=== PATIENT | female | born 1940 | race Caucasian/White ===

== ENCOUNTER 2016-10-28 00:46 | Emergency (ER) ==
[2016-10-28 01:02] VITALS: BP 165/82; TEMP 98.3; BMI 42.5
[2016-10-28] MEDS ORDERED: MORPHINE 2 MG/ML SYRINGE IVP STA (01:27)
[2016-10-28] MEDS ORDERED: SODIUM CHLORIDE 1,000 ML IV STA ×2 (01:27)
[2016-10-28] MEDS ORDERED: PHENERGAN 25 MG/ML VIAL 25 MG in SODIUM CHLORIDE 50 ML IV STA (01:27)
[2016-10-28] MEDS ORDERED: PHENERGAN 25 MG/ML VIAL ONE (01:30)
[2016-10-28 02:08] LABS: BASOPHILS # (AUTO) 0.1 K/uL (0-0.2); BASOPHILS % (AUTO) 0.3 % (0.0-3.0); EOSINOPHILS # (AUTO) 0.2 K/ul (0.0-0.7); EOSINOPHILS % (AUTO) 0.5 % (0.0-7.0); IMMATURE GRANULOCYTE % (AUTO) 0.6 % (0.0-5.0); LYMPHOCYTES # (AUTO) 0.6 K/uL (0.60-3.4); LYMPHOCYTES % (AUTO) 1.9 (10.0-50.0); MEAN CORPUSCULAR HEMOGLOBIN 27.9 pg (27.0-31.0); MEAN CORPUSCULAR HGB CONC 31.3 (31.8-35.4); MEAN CORPUSCULAR VOLUME 89.4 fl (81.0-99.0); MONOCYTES # (AUTO) 1.8 K/uL (0.4-2.0); MONOCYTES % (AUTO) 5.9 (0-10); NEUTROPHILS # (AUTO) 27.4 K/ul (2.0-6.9); NEUTROPHILS % (AUTO) 90.8; PLATELET COUNT 446 10^3/uL (140-440); RED BLOOD COUNT 3.58 10^6/ul (4.20-5.40); WHITE BLOOD COUNT 30.13 K/ul (4.6-10.2)
[2016-10-28 02:08] LABS: FLU INTERNAL QC INTERNAL QC VALID; RAPID FLU A NEGATIVE (NEGATIVE); RAPID FLU B NEGATIVE (NEGATIVE)
[2016-10-28 02:18] LABS: ABG BASE EXCESS 5 (-2.0-2.0); ABG HCO3 29 (22.0-26.0); ABG PCO2 39.4 mmHg (35-45); ABG PH 7.475 (7.35-7.45); ABG TCO2 30 (22.0-28.0)
[2016-10-28 02:27] LABS: ALBUMIN 3.6 g/dL (3.4-5.0); ALBUMIN/GLOBULIN RATIO 0.92; ANION GAP 16.7; BILIRUBIN,TOTAL 0.27 mg/dL (0.00-1.20); BUN/CREATININE RATIO 22.09; CALCIUM 9.6 mg/dL (8.2-10.2); CREATININE 0.86 mg/dL (0.60-1.30); POTASSIUM 3.7 mmol/L (3.5-5.10); TOTAL PROTEIN 7.5 g/dL (5.8-8.1)
[2016-10-28 02:45] LABS: TROPONIN I 0.011 ng/ml (0.0000-0.4000)
[2016-10-28 02:47] LABS: ERYTHROCYTE SEDIMENTATION RATE 48 mm/hr (0-20); ESR INTERNAL QC INTERNAL QC VALID
--- NOTE | 2016-10-28 03:42 | CT ---
EXAM: CT scan abdomen pelvis without contrast HISTORY: Nausea vomiting diarrhea COMPARISON: CT scan abdomen pelvis 11/13/2014 FINDINGS: Contiguous axial images obtained from lung bases to the symphysis pubis without contrast utilizing 3-mm collimation. Sagittal and coronal reconstructions were imaged and reviewed.. The he art is enlarged with coronary artery calcification. There is no pericardial effusion. There is min imal bibasilar atelectasis. There are benign granulomatous changes within the liver. There has been a prior cholecystectomy. The pancreas spleen and adrenal glands have normal unenhanced CT appearan ce. The kidneys are morphologically normal.. Atherosclerotic changes are seen involving the aorta without aneurysm formation. There has been prior hysterectomy. There is no free fluid. There is a n ormal appendix.. There are prominent fluid-filled loops of small bowel throughout the abdomen and p roman most prominent within the left abdomen measuring upwards of 2.7 cm.. No discrete transition po int is identified although distal small bowel loops are of a smaller caliber Moderate degenerative changes noted throughout the lumbar spine. There is grade 1 spondylolisthesis of L4 upon L5 IMPRESSION: Status post cholecystectomy and hysterectomy. ASVD without aneurysm. Prominent fluid-filled loops of small bowel likely related to gastroenteritis.. Early small bowel o bstruction. Is thought less likely. Suggest follow-up comparative plain film exam if symptoms persi st
[2016-10-28 03:43] LABS: BILIRUBIN,URINE Negative (NEGATIVE); KETONES,URINE Negative (NEGATIVE); LEUKOCYTE ESTERASE ,URINE Trace (NEGATIVE); NITRITE,URINE Negative (NEGATIVE); PROTEIN,URINE Trace (NEGATIVE); URINE, BLOOD Trace-intact (NEGATIVE)
[2016-10-28 03:45] LABS: ADD URINE MICROSCOPIC YES
[2016-10-28 03:55] LABS: BACTERIA,URINE 1+ (NOT PRESENT)
--- NOTE | 2016-10-28 06:01 | ED.PDOC ---
[id number]: terrell got both vomiting and diarrhea... Time Seen by Physician: 00:50 Mode of Arrival: Walk-In Information Source: Patient, Family Exam Limitations: No limitations Primary Care Provider: KASSIE MYERS Nursing and Triage Documentation Reviewed and Agree: Yes GI Complaint Exam - Vomiting/Diarrhea Complaint/Exam Onset/Duration: several hours Symptoms Are: Still present Initial Severity: Mild Current Severity: Moderate Character of Vomiting: Reports: Non-bilious Character of Diarrhea: Reports: Watery Aggravating: Reports: None Alleviating: Reports: None Associated Signs and Symptoms: Reports: Abdominal pain, Cramping. Denies: Dizziness, Light-headedness, Melena, Hematemesis, Fever Recent Positive Test: No Use of Oral Contraceptives: No Use of Depoprovera: No Compliant With Contraceptive Use: No Non-GI Risk Factors: Reports: None Surgical Obstruction Risk Factors: Reports: Prior abdominal surgery Kussmaul Respirations Present: No Differential Diagnoses: Bowel Obstruction, Dehydration, PUD, Viral Gastroenteritis, Bacterial Gastroenteritis, UTI Review of Systems - Review Of Systems Constitutional: Reports: No symptoms Eyes: Reports: No symptoms Ears, Nose, Mouth, Throat: Reports: No symptoms Respiratory: Reports: No symptoms Cardiac: Reports: No symptoms GI: Reports: Abdominal pain, Diarrhea, Nausea, Vomiting : Reports: No symptoms Musculoskeletal: Reports: No symptoms Skin: Reports: No symptoms Neurological: Reports: No symptoms Endocrine: Reports: No symptoms Hematologic/Lymphatic: Reports: No symptoms All Other Systems: Reviewed and Negative Past Medical History - Past Medical History Endocrine: Reports: Hypothyroid, Dyslipidemia Cardiovascular: Reports: Hypertension Respiratory: Reports: None Hematological: Reports: Anemia Gastrointestinal: Reports: GERD, GI Bleed Genitourinary: Reports: None Neuro/Psych: Reports: None Musculoskeletal: Reports: None Cancer: Reports: None Last Menstrual Period: PT HAS HAD A HYSTERECTOMY Other Pertinent Past Medical History: his chronic leukocytosis --followed by dr smith--also chronic lymphedema - Surgical History General Surgical History: Reports: Hysterectomy, (x2), Cholecystectomy , Tonsillectomy, Orthopedic ( KNEE REPLACEMENT X2) - Family History Family History: Reports: Unknown - Social History Smoking Status: Never smoker Hx Substance Use: No Alcohol Screening: None Lives: With family - Immunizations Tetanus Shot up to Date: Yes Physical Exam - Physical Exam Appearance: Well-appearing, No pain distress, Well-nourished Pain Distress: Mild Eyes: CATIA, EOMI, Conjunctiva clear ENT: Ears normal, Nose normal, Oropharynx normal Neck: Supple Respiratory: Airway patent, Breath sounds clear, Breath sounds equal, Respirations nonlabored Cardiovascular: RRR, Pulses normal, No rub, No murmur GI/: Soft, Nontender, No masses, Bowel sounds normal, No Organomegaly Musculoskeletal: Normal strength, ROM intact, No edema, No calf tenderness Skin: Warm, Dry (noted erythema of the lower extrmities..pt and family says chronic) Neurological: Sensation intact, Motor intact, Reflexes intact, Cranial nerves intact, Alert, Oriented Psychiatric: Affect appropriate, Mood appropriate Interpretation - Radiology Interpretation Radiology Interpretation By: Radiologist Radiology Results: Negative Exam Interpreted: CT Scan - EKG Interpretation Time of EKG #1: 06:03 Rate: Normal Rhythm: Sinus Ectopy: None [place]: NL ST Segment: Normal Re-Evaluation - Re-Evaluation Time of Re-Evaluation: 06:03 Status: Improved Vital Signs Stable: Yes Pain Level: 0 Appearance: NAD Lungs: Clear Skin: Warm and Dry Neuro: Alert and Oriented X3 CV: RRR Physician Notification - Case Discussed Physician Notified: dr myers--notified of extremities and her leukocytosis--he confimed chronic Time of Notification: 06:04 Critical Care Note - Critical Care Note Total Time (mins): 0 Course - Course Hematology/Chemistry: 10/28/16 01:50 10/28/16 01:50 Orders, Labs, Meds: Lab Review 10/28/16 10/28/16 10/28/16 01:25 01:31 01:50 WBC 30.13 H RBC 3.58 L Hgb 10.0 L Hct 32.0 L MCV 89.4 MCH 27.9 MCHC 31.3 L RDW Coeff of Martha 16.6 H Plt Count 446 H Immature Gran % (Auto) 0.6 Neut % (Auto) 90.8 Lymph % (Auto) 1.9 L [place] % (Auto) 5.9 Eos % (Auto) 0.5 Baso % (Auto) 0.3 Immature Gran # (Auto) 0.2 Neut # 27.4 H Lymph # 0.6 [place] # 1.8 Eos # 0.2 Baso # 0.1 ESR 48 H D-Dimer 1.06 Puncture Site Lr O2 Saturation 96.0 ABG pH 7.475 H ABG pCO2 39.4 ABG pO2 78.0 L ABG HCO3 29 H ABG Total CO2 30 H ABG Base Excess 5 H Rigo Test + FiO2 % 21.0 Sodium 141 Potassium 3.7 Chloride 100 Carbon Dioxide 28 Anion Gap 16.7 BUN 19 H Creatinine 0.86 Estimated GFR (MDRD) 64.00 BUN/Creatinine Ratio 22.09 Glucose 132 H Calcium 9.6 Total Bilirubin 0.27 AST 17 ALT 14 Alkaline Phosphatase 72 Total Creatine Kinase 99 Troponin I 0.0110 Total Protein 7.5 Albumin 3.6 Globulin 3.9 Albumin/Globulin Ratio 0.92 Amylase 53 Lipase 30 Urine Color Urine Clarity Urine pH Ur Specific [place] Urine Protein Urine Glucose (UA) Urine Ketones Urine Blood Urine Nitrite Urine Bilirubin Urine Urobilinogen Ur Leukocyte Esterase Urine Microscopic RBC Urine Microscopic WBC Ur Squamous Epith Cells Urine Bacteria Influenza A (Rapid) Negative Influenza B (Rapid) Negative 10/28/16 03:40 WBC RBC Hgb Hct MCV MCH MCHC RDW Coeff of Martha Plt Count Immature Gran % (Auto) Neut % (Auto) Lymph % (Auto) [place] % (Auto) Eos % (Auto) Baso % (Auto) Immature Gran # (Auto) Neut # Lymph # [place] # Eos # Baso # ESR D-Dimer Puncture Site O2 Saturation ABG pH ABG pCO2 ABG pO2 ABG HCO3 ABG Total CO2 ABG Base Excess [place] Test FiO2 % Sodium Potassium Chloride Carbon Dioxide Anion Gap BUN Creatinine Estimated GFR (MDRD) BUN/Creatinine Ratio Glucose Calcium Total Bilirubin AST ALT Alkaline Phosphatase Total Creatine Kinase Troponin I Total Protein Albumin Globulin Albumin/Globulin Ratio Amylase Lipase Urine Color Yellow Urine Clarity Clear Urine pH 6.0 Ur Specific [place] 1.020 Urine Protein Trace Urine Glucose (UA) Negative Urine Ketones Negative Urine Blood Trace-intact Urine Nitrite Negative Urine Bilirubin Negative Urine Urobilinogen 0.2 Ur Leukocyte Esterase Trace Urine Microscopic RBC 2-5 Urine Microscopic WBC 2-5 Ur Squamous Epith Cells 5-10 Urine Bacteria 1+ Influenza A (Rapid) Influenza B (Rapid) Orders Category Date Time Status ABG DRAW REQUEST Stat CARDIO 10/28/16 01:26 Completed EKG-(ED ONLY) Stat CARDIO 10/28/16 01:26 Completed IV [ED IV/MEDIPORT/POWERPORT] .ONCE EMERGENCY 10/28/16 01:27 Active ABG Stat LAB 10/28/16 01:25 Completed AMYLASE Stat LAB 10/28/16 01:50 Completed CBC W/ AUTO DIFF Stat LAB 10/28/16 01:50 Completed COMPREHENSIVE METABOLIC PANEL Stat LAB 10/28/16 01:50 Completed CREATINE KINASE Stat LAB 10/28/16 01:50 Completed D-DIMER Stat LAB 10/28/16 01:50 Completed ESR Stat LAB 10/28/16 01:50 Completed LIPASE Stat LAB 10/28/16 01:50 Completed MOLECULAR GROUP A STREP Stat LAB 10/28/16 01:37 Results RAPID FLU A/B Stat LAB 10/28/16 01:31 Completed STREP SCREEN Stat LAB 10/28/16 01:37 Results TROPONIN I Stat LAB 10/28/16 01:50 Completed URINALYSIS C & S IF INDICATED Stat LAB 10/28/16 03:40 Completed URINE CULTURE Routine LAB 10/28/16 03:55 Received 0.9 % Sodium Chloride [Saline Flush] MEDS 10/28/16 01:27 Ordered 1 syr IVF PRN PRN Morphine Sulfate [Morphine 2 mg/ml Syringe] MEDS 10/28/16 01:27 Discontinued 2 mg IVP ONCE STA Promethazine HCl [Phenergan 25 mg/ml Vial] MEDS 10/28/16 01:30 Discontinued 25 mg .ROUTE .STK-MED ONE Promethazine HCl [Phenergan 25 mg/ml Vial] 25 mg MEDS 10/28/16 01:27 Discontinued 0.9 % Sodium Chloride [Sodium Chloride] 50 ml IV ONCE Sodium Chloride 0.9% [Sodium Chloride] 1,000 ml MEDS 10/28/16 01:27 Active IV 125 mls/hr Sodium Chloride 0.9% [Sodium Chloride] 1,000 ml MEDS 10/28/16 01:[address] ABDOMEN/PELVIS WO CONTRAST Stat RADS 10/28/16 01:28 Completed Medications Generic Name Dose Route Start Last Admin Trade Name Freq PRN Reason Stop Dose Admin Sodium Chloride 1,000 mls @ 125 mls/hr 10/28/16 01:27 10/28/16 01:59 Sodium Chloride IV 10/28/16 09:26 125 mls/hr .Q8H STA Administration Sodium Chloride 1 syr 10/28/16 01:27 Saline Flush IVF PRN PRN To flush IV Discontinued Medications Generic Name Dose Route Start Last Admin Trade Name Hoq PRN Reason Stop Dose Admin Promethazine HCl 25 mg/ Sodium 51 mls @ 75 mls/hr 10/28/16 01:27 10/28/16 01: 59 Chloride IV 10/28/16 02:07 75 mls/hr ONCE STA Administration Sodium Chloride 1,000 mls @ 1,000 mls/hr 10/28/16 01:27 Sodium Chloride IV 10/28/16 02:26 BOLUS STA Morphine Sulfate 2 mg 10/28/16 01:27 10/28/16 02:00 Morphine 2 Mg/Ml Syringe IVP 10/28/16 01:28 2 mg ONCE STA Administration Vital Signs: Temp Pulse Resp BP Pulse Ox 10/28/16 00:49 98.3 F 90 20 165/82 H 95 Departure - Departure Time of Disposition: 06:03 Disposition: HOME SELF-CARE Discharge Problem: Enteritis Instructions: Enteritis (ED) Condition: Good Pt referred to PMD for follow-up: Yes Additional Instructions: clear liquids--zofran 4mg q 4hrs prn nausea #4--f/u with dr myers this week-- cipro 250mg bid x 5 days while awaiting urine culture Allergies/Adverse Reactions: Allergies Sulfa (Sulfonamide Antibiotics) Adverse Reaction (Verified 10/28/16 01:02) Home Medications: Ambulatory Orders Diltiazem HCl [Diltiazem 24Hr Cd] 180 mg PO BEDTIME 03/27/13 Fexofenadine HCl [Rose] 180 mg PO BEDTIME PRN 03/27/13 Furosemide [Lasix Tab] 40 mg PO QDAC 03/27/13 Potassium Chloride [Klor-Con 10] 20 meq PO DAILY 03/27/13 Tramadol HCl [Ultram] 50 mg PO TID PRN 03/27/13 [place]-3 Fatty Acids/Fish Oil [[facility] Fish Oil 1,200 mg Softgel] 1 each PO DAILY Omeprazole [Prilosec] 40 mg PO QDAC 06/18/14 Sucralfate [Carafate] 1 gm PO BID 06/18/14 Valsartan [Diovan] 80 mg PO DAILY 06/18/14 Bisoprolol Fumarate [Zebeta] 5 mg PO BEDTIME 05/05/15 Hydrocodone Bit/Acetaminophen [Flora 5-325] 1 tab PO Q8HR PRN 05/05/15 Hydroxychloroquine Sulfate [Plaquenil] 200 mg PO BID 05/05/15 L.acidoph,Paracasei, B.lactis [Probiotic] 1 each PO DAILY 05/05/15 Methylcellulose [Fiber Therapy] 500 mg PO DAILY 05/05/15 Prednisone 5 mg PO DAILYWM 05/05/15 Pravastatin Sodium [Pravachol] 80 mg PO BEDTIME #30 tablet 05/06/15 Digoxin 250 mcg PO DAILY 07/11/15 Clotrimazole/Betamethasone Dip [Lotrisone Cream] 15 gm TP BID PRN 10/28/16 Disposition Discussed With: Patient, Family
== END 2016-10-28 06:25 | disposition home or self-care (01) ==
LOC: ED 00:46
DX: K52.9 Noninfective gastroenteritis and colitis, unspecified (principal); Z79.899 Other long term (current) drug therapy; E03.9 Hypothyroidism, unspecified; E78.5 Hyperlipidemia, unspecified; I10 Essential (primary) hypertension; D64.9 Anemia, unspecified; D72.829 Elevated white blood cell count, unspecified; I89.0 Lymphedema, not elsewhere classified; Z87.19 Personal history of other diseases of the digestive system
CPT/HCPCS: 36415; 80053; 81001; 82150; 82550; 82803; 83690; 84484; 85025; 85379; 85651; 87086; 87651; 87804; 87880; 93005; 93010; 96361; 96365; 96375; 99283

== ENCOUNTER 2016-12-18 15:25 | Outpatient (CLI) ==
[2016-12-18 15:46] LABS: BASOPHILS # (AUTO) 0.1 K/uL (0-0.2); BASOPHILS % (AUTO) 0.3 % (0.0-3.0); EOSINOPHILS # (AUTO) 0.1 K/ul (0.0-0.7); EOSINOPHILS % (AUTO) 0.4 % (0.0-7.0); HEMATOCRIT 28.9 % (37.0-47.0); HEMOGLOBIN 8.8 g/dl (12.0-16.0); IMMATURE GRANULOCYTE % (AUTO) 0.4 % (0.0-5.0); LYMPHOCYTES # (AUTO) 0.9 K/uL (0.60-3.4); LYMPHOCYTES % (AUTO) 4.7 (10.0-50.0); MEAN CORPUSCULAR HEMOGLOBIN 22.9 pg (27.0-31.0); MEAN CORPUSCULAR HGB CONC 30.4 (31.8-35.4); MEAN CORPUSCULAR VOLUME 75.1 fl (81.0-99.0); MONOCYTES # (AUTO) 1.1 K/uL (0.4-2.0); MONOCYTES % (AUTO) 6.2 (0-10); NEUTROPHILS # (AUTO) 15.8 K/ul (2.0-6.9); PLATELET COUNT 567 10^3/uL (140-440); RED BLOOD COUNT 3.85 10^6/ul (4.20-5.40); WHITE BLOOD COUNT 17.93 K/ul (4.6-10.2)
[2016-12-18 16:02] LABS: BILIRUBIN,URINE Negative (NEGATIVE); KETONES,URINE Trace (NEGATIVE); LEUKOCYTE ESTERASE ,URINE Negative (NEGATIVE); NITRITE,URINE Negative (NEGATIVE); PROTEIN,URINE Trace (NEGATIVE); URINE, BLOOD Trace-intact (NEGATIVE)
[2016-12-18 16:06] LABS: ALBUMIN 3.6 g/dL (3.4-5.0); ALBUMIN/GLOBULIN RATIO 0.84; ANION GAP 16.3; BILIRUBIN,TOTAL 0.29 mg/dL (0.00-1.20); BUN/CREATININE RATIO 21.7; CREATININE 1.29 mg/dL (0.60-1.30); POTASSIUM 3.3 mmol/L (3.5-5.10); TOTAL PROTEIN 7.9 g/dL (5.8-8.1)
[2016-12-18 16:13] LABS: ADD URINE MICROSCOPIC YES
[2016-12-18 16:15] LABS: BACTERIA,URINE 1+ (NOT PRESENT)
== END 2016-12-18 15:26 | disposition home or self-care (01) ==
LOC: LAB 15:25
PROVIDERS: ATTEND Emergency Medicine
DX: D64.9 Anemia, unspecified (principal); I10 Essential (primary) hypertension; J44.9 Chronic obstructive pulmonary disease, unspecified; D75.1 Secondary polycythemia; R82.90 Unspecified abnormal findings in urine
CPT/HCPCS: 36415; 80053; 81001; 85025; 87086

== ENCOUNTER 2016-12-24 09:31 | Outpatient (CLI) ==
[2016-12-24 09:48] LABS: BASOPHILS # (AUTO) 0.1 K/uL (0-0.2); BASOPHILS % (AUTO) 0.4 % (0.0-3.0); EOSINOPHILS # (AUTO) 0.5 K/ul (0.0-0.7); EOSINOPHILS % (AUTO) 3.4 % (0.0-7.0); HEMATOCRIT 28.2 % (37.0-47.0); HEMOGLOBIN 8.1 g/dl (12.0-16.0); IMMATURE GRANULOCYTE % (AUTO) 0.5 % (0.0-5.0); MEAN CORPUSCULAR HEMOGLOBIN 22.4 pg (27.0-31.0); MEAN CORPUSCULAR HGB CONC 28.7 (31.8-35.4); MEAN CORPUSCULAR VOLUME 77.9 fl (81.0-99.0); MONOCYTES # (AUTO) 1.5 K/uL (0.4-2.0); MONOCYTES % (AUTO) 10.3 (0-10); NEUTROPHILS # (AUTO) 11.1 K/ul (2.0-6.9); NEUTROPHILS % (AUTO) 78.4; PLATELET COUNT 523 10^3/uL (140-440); RED BLOOD COUNT 3.62 10^6/ul (4.20-5.40)
[2016-12-24 20:19] VITALS: BP 98/52; TEMP 98.5
[2016-12-24 21:00] LABS: HEMATOCRIT 29.9 % (37.0-47.0); HEMOGLOBIN 8.9 g/dl (12.0-16.0)
== END 2016-12-24 21:00 | disposition home or self-care (01) ==
LOC: LAB 09:31 → OUTPT 21:00
PROVIDERS: ATTEND Internal Medicine
DX: D64.9 Anemia, unspecified (principal)
CPT/HCPCS: 36415; 36430; 85014; 85018; 85025; 86850; 86900; 86922

== ENCOUNTER 2017-06-20 06:55 | Outpatient (CLI) ==
--- NOTE | 2017-06-24 07:47 | ECHO2D ---
Date of Exam: 06/20/17 Ordering Physician: KASSIE MYERS Reason for Echo: SOB, CAROTID STENOSIS, HISTORY OF SVT, LBBB M-Mode Normal Adult Results LV Dimensions Normal Adult Results AoV Opening excursions >1.6 >1.6 LVEDD-base- 3.5-5.8 5.1 Ao root dimensions 2.0-3.7 3.3 LVESD-base- 3.1-4.6 L. Atrium dimensions 1.9-3.8 4.3 Post. Wall thickness 0.8-1.1 1.1 IV septum (thickness) 0.7-1.2 1.2 Post. Wall excursion 0.72-1.3 NORMAL Septal motion NORMAL Systolic motion R. Ventricular cavity 1.5-2.0 NORMAL LVEF 60% 53% Paradoxical septal wall motion NORMAL 2-D : ENLARGED LEFT ATRIAL CAVITY--NORMAL LEFT VENTRICULAR CONTRACTILITY--NO EFFUSION, NO THROMBUS, CALCIFIC MITRAL VALVE ANNULUS, NORMAL LEFT VENTRICULAR SIZE M-MODE: MV: NORMAL AV: NORMAL TV: NORMAL PV: CHAMBER SIZE: ENLARGED LEFT ATRIAL SIZE WALL MOTION: NORMAL PERICARDIUM: NORMAL INTERPRETATION: 1. BORDERLINE LEFT VENTRICULAR HYPERTROPHY 2. NORMAL LEFT VENTRICULAR CONTRACTILITY 3. ENLARGED LEFT ATRIAL CAVITY 4. NORMAL VALVES MTDD
== END 2017-06-20 06:56 | disposition home or self-care (01) ==
LOC: CAR 06:55
PROVIDERS: ATTEND Internal Medicine
DX: R06.02 Shortness of breath (principal); I65.29 Occlusion and stenosis of unspecified carotid artery; I47.1 Supraventricular tachycardia
CPT/HCPCS: 93005; 93010

== ENCOUNTER 2021-03-23 13:39 | Inpatient (IN) ==
[2021-03-23] MEDS ORDERED: ZOFRAN 4 MG/2 ML IVP ONE ×2 (14:20→16:54)
[2021-03-23] MEDS ORDERED: SODIUM CHLORIDE 500 ML IV STA (14:20)
--- NOTE | 2021-03-23 14:24 | ED.PDOC ---
General ED Provider: Dr. JASPREET HAMLIN MD Chief Complaint: Nausea/Vomiting Stated Complaint: vomiting Time Seen by Provider: 03/23/21 14:15 Mode of Arrival: Walk-In Information Source: Patient Primary Care Provider: KASSIE MYERS Nursing and Triage Documentation Reviewed and Agree: Yes Does patient meet sepsis criteria?: No System Inflammatory Response Syndrome: Not Applicable Sepsis Protocol: For patient's 13 years and over: Temp is 96.8 and below OR 101 and greater Pulse >90 BPM Resp >20/minute Acutely Altered Mental Status Are patient's symptoms suggestive of a new infection, such as: -Pneumonia -Skin, Soft Tissue -Endocarditis -UTI -Bone, Joint Infection -Implantable Device -Acute Abdominal Infection -Wound Infection -Meningitis -Blood Stream Catheter Infection -Unknown GI Complaint Exam Abdominal Pain Complaint/Exam Onset: Gradual Duration: off and on diffuse cramps w/ nausea x 2days, no injury Symptoms Are: Still present Timing: Intermittent Initial Severity: Mild Current Severity: Mild Location of Pain: Diffuse Character: Reports Cramping Review of Systems Review Of Systems Constitutional: Reports Malaise; Denies Fever Eyes: Denies Vision change Ears, Nose, Mouth, Throat: Denies Throat pain Respiratory: Denies Short of air Cardiac: Denies Chest pain GI: Reports Abdominal pain and Nausea; Denies Abdomen distended and Vomiting : Denies Dysuria Musculoskeletal: Denies Back pain Skin: Denies Rash and Cyanosis Neurological: Denies Cognitive dysfunction and Headache All Other Systems: Other [facility] Social History Smoking and tobacco status: Never smoker History of recent travel: Yes ([place] through [place]) Female Reproductive History Menstrual Hx Hysterectomy: Yes Hx Tubal Ligation: No Physical Exam Physical Exam Appearance: Reports Well-appearing Ill-appearing: Not Applicable Pain Distress: Mild Eyes: Reports CATIA ENT: Reports Oropharynx normal Neck: Supple Respiratory: Reports Airway patent Cardiovascular: Reports RRR GI/: Reports Soft and Tender (no rebound) Musculoskeletal: Reports Edema Skin: Reports Warm and Dry Neurological: Reports Alert and Oriented Psychiatric: Reports Affect appropriate Interpretation Radiology Interpretation Radiology Interpretation By: Radiologist Exam Interpreted: CT Scan Xray Comments: no appendicitis, no obstruction, +esophagitis Radiology Interpretation By: Radiologist Radiology Results: No acute changes Exam Interpreted: CXR EKG Interpretation Time of EKG #1: 17:06 Rate: Normal Rhythm: Sinus Interpretation: lbbb as seen previously Critical Care Note Critical Care Note Total Critical Care Time (mins): 0 Course Course Hematology/Chemistry: 03/23/21 14:35 03/23/21 14:35 Orders, Labs, Meds: Lab Review 03/23/21 03/23/21 03/23/21 14:35 14:35 14:35 WBC 14.95 H RBC 3.67 L Hgb 10.6 L Hct 32.9 L MCV 89.6 MCH 28.9 MCHC 32.2 RDW Coeff of Martha 14.7 Plt Count 577 H Immature Gran % (Auto) 0.9 Neut % (Auto) 81.5 H Lymph % (Auto) 5.8 L Lake % (Auto) 10.1 H Eos % (Auto) 1.2 Baso % (Auto) 0.5 Neut # (Auto) 12.2 H Lymph # (Auto) 0.9 Lake # (Auto) 1.5 Eos # (Auto) 0.2 Baso # (Auto) 0.1 Immature Gran # (Auto) 0.1 Sodium 132.3 L Potassium 4.04 Chloride 91.3 L Carbon Dioxide 31.9 H Anion Gap 13.14 BUN 32.1 H Creatinine 2.10 H Estimated GFR (MDRD) 23.00 BUN/Creatinine Ratio 15.28 Glucose 86.2 Lactic Acid 0.80 Calcium 9.18 Total Bilirubin 0.89 AST 44.0 H ALT 9.1 Alkaline Phosphatase 63.3 Troponin I 0.013 Total Protein 7.77 Albumin 4.21 Globulin 3.56 Albumin/Globulin Ratio 1.18 Lipase 40.2 Urine Color Urine Clarity Urine pH Ur Specific [place] Urine Protein Urine Glucose (UA) Urine Ketones Urine Blood Urine Nitrite Urine Bilirubin Urine Urobilinogen Ur Leukocyte Esterase Adenovirus (PCR) B. pertussis DNA (PCR) B.parapertussis DNA PCR C. pneumoniae DNA (PCR) Coronavirus OC43 (PCR) Coronavirus HKU1 (PCR) Coronavirus 229E (PCR) Coronavirus NL63 (PCR) Human Metapneumovir PCR Influenza Type A (PCR) Influenza B (RT-PCR) M. pneumoniae (PCR) Parainfluenza 1 (PCR) Parainfluenza 2 (PCR) Parainfluenza 3 (PCR) Parainfluenza 4 (PCR) RSV (PCR) Entero/Rhino (PCR) SARS-CoV-2 (PCR) 03/23/21 03/23/21 15:30 15:55 WBC RBC Hgb Hct MCV MCH MCHC RDW Coeff of Martha Plt Count Immature Gran % (Auto) Neut % (Auto) Lymph % (Auto) Lake % (Auto) Eos % (Auto) Baso % (Auto) Neut # (Auto) Lymph # (Auto) Lake # (Auto) Eos # (Auto) Baso # (Auto) Immature Gran # (Auto) Sodium Potassium Chloride Carbon Dioxide Anion Gap BUN Creatinine Estimated GFR (MDRD) BUN/Creatinine Ratio Glucose Lactic Acid Calcium Total Bilirubin AST ALT Alkaline Phosphatase Troponin I Total Protein Albumin Globulin Albumin/Globulin Ratio Lipase Urine Color Yellow Urine Clarity Clear Urine pH 5.5 Ur Specific [place] <=1.005 Urine Protein Negative Urine Glucose (UA) Negative Urine Ketones Negative Urine Blood Negative Urine Nitrite Negative Urine Bilirubin Negative Urine Urobilinogen 0.2 Ur Leukocyte Esterase Negative Adenovirus (PCR) Not detected B. pertussis DNA (PCR) Not detected B.parapertussis DNA PCR Not detected C. pneumoniae DNA (PCR) Not detected Coronavirus OC43 (PCR) Not detected Coronavirus HKU1 (PCR) Not detected Coronavirus 229E (PCR) Not detected Coronavirus NL63 (PCR) Not detected Human Metapneumovir PCR Not detected Influenza Type A (PCR) Not detected Influenza B (RT-PCR) Not detected M. pneumoniae (PCR) Not detected Parainfluenza 1 (PCR) Not detected Parainfluenza 2 (PCR) Not detected Parainfluenza 3 (PCR) Not detected Parainfluenza 4 (PCR) Not detected RSV (PCR) Not detected Entero/Rhino (PCR) Not detected SARS-CoV-2 (PCR) Not detected Orders Category Date Time Status ADMIT PATIENT INPATIENT .TO [facility] (MONITORED BED) ADMISSION 03/23/21 16:54 Ordered EKG-(ED ONLY) Stat CARDIO 03/23/21 14:20 Completed EKG-(IP & OP ONLY) DAILY CARDIO 03/24/21 06:00 Ordered EKG-(IP & OP ONLY) DAILY CARDIO 03/25/21 06:00 Ordered EKG-(IP & OP ONLY) Stat CARDIO 03/23/21 16:58 Ordered OXYGEN Routine CARDIO 03/23/21 16:58 Ordered ACTIVITY .BR with BRP CARE 03/23/21 16:58 Ordered IP: INSERT SALINE LOCK ONCE CARE 03/23/21 16:58 Ordered PHARMACIST CONSULT ONCE CARE 03/23/21 17:00 Ordered TELEMETRY MONITORING TELE CARE 03/23/21 16:58 Ordered TELEMETRY MONITORING TELE CARE 03/23/21 16:59 Ordered VITAL SIGNS Q8HR CARE 03/23/21 16:58 Ordered CARDIAC DIET DIETARY 03/23/21 Dinner Ordered BLOOD CULTURE Stat LAB 03/23/21 16:54 Ordered CBC W/ AUTO DIFF Stat LAB 03/23/21 14:35 Completed CBC W/ AUTO DIFF Stat LAB 03/23/21 16:58 Ordered COMPREHENSIVE METABOLIC PANEL Stat LAB 03/23/21 14:35 Completed COMPREHENSIVE METABOLIC PANEL Stat LAB 03/23/21 16:58 Ordered CREATINE KINASE Q8H LAB 03/23/21 17:00 Ordered CREATINE KINASE Q8H LAB 03/24/21 01:00 Ordered LACTIC ACID Stat LAB 03/23/21 14:35 Completed LIPASE Stat LAB 03/23/21 14:35 Completed RESPIRATORY PANEL 2.1 (PCR) Stat LAB 03/23/21 15:55 Completed TROPONIN I Q8H LAB 03/23/21 17:00 Ordered TROPONIN I Q8H LAB 03/24/21 01:00 Ordered TROPONIN I Stat LAB 03/23/21 14:35 Completed URINALYSIS C & S IF INDICATED Stat LAB 03/23/21 15:30 Completed URINALYSIS C & S IF INDICATED Stat LAB 03/23/21 16:58 Uncollected VANCOMYCIN,TROUGH Timed LAB 03/27/21 08:30 Ordered 0.9 % Sodium Chloride [Saline Flush] MEDS 03/23/21 21:00 Ordered 1 syr IVF Q8HR Acetaminophen [Tylenol] MEDS 03/23/21 16:54 Ordered 650 mg PO Q4H PRN Atenolol [Tenormin] MEDS 03/24/21 09:00 Ordered 50 mg PO DAILY Atropine Sulfate Inj [Atropine Sulfate Pfs] MEDS 03/23/21 16:54 Ordered 0.5 mg IVP ONCE PRN Clotrimazole/Betamethasone Dip [Lotrisone 45 gm] MEDS 03/23/21 17:01 Ordered 15 gm TP BID PRN Diltiazem HCl [Cardizem Cd] MEDS 03/23/21 21:00 Ordered 180 mg PO BEDTIME Levothyroxine Sodium [Synthroid] MEDS 03/24/21 09:00 Ordered 100 mcg PO DAILY Losartan Potassium [Cozaar] MEDS 03/24/21 09:00 Ordered 50 mg PO DAILY Nitroglycerin [Nitrostat] MEDS 03/23/21 16:54 Ordered 0.4 mg SL Q5MIN X 3 DOSES PRN Ondansetron HCl/Pf [Zofran 4 mg/2 ml] MEDS 03/23/21 14:20 Discontinued 4 mg IVP ONCE ONE Ondansetron HCl/Pf [Zofran 4 mg/2 ml] MEDS 03/23/21 16:54 Once 4 mg IVP ONCE ONE Pantoprazole Sodium [Protonix IV] 80 mg MEDS 03/23/21 17:00 Ordered 0.9 % Sodium Chloride [Sodium Chloride] 100 ml IV Q10H Pravastatin Sodium [Pravachol] MEDS 03/23/21 21:00 Ordered 80 mg PO BEDTIME SODIUM CHLORIDE 0.9% @ 100 MLS/HR(1,000ml) MEDS 03/23/21 16:54 Ordered Sodium Chloride 0.9% [Sodium Chloride] 1,000 ml IV 100 mls/hr Sodium Chloride 0.9% [Sodium Chloride] 500 ml MEDS 03/23/21 14:20 Discontinued IV BOLUS Tramadol HCl [Ultram] MEDS 03/23/21 17:01 Ordered 50 mg PO DAILY PRN Vancomycin 1 gm MEDS 03/23/21 16:00 Active 0.9 % Sodium Chloride [Sodium Chloride] 250 ml IV DAILY Vancomycin 1 gm MEDS 03/23/21 16:54 Ordered 0.9 % Sodium Chloride [Sodium Chloride] 250 ml IV ONCE CHEST, 1V AP ONLY Stat RADS 03/23/21 14:[address] ABDOMEN/PELVIS WO CONTRAST Stat RADS 03/23/21 14:20 Completed Medications Generic Name Dose Route Start Last Admin Trade Name Freq PRN Reason Stop Dose Admin Acetaminophen 650 mg 03/23/21 16:54 Acetaminophen 325 Mg Tablet PO Q4H PRN Headache Atenolol 50 mg 03/24/21 09:00 Atenolol 50 Mg Tablet PO DAILY CATHERINE Atropine Sulfate 0.5 mg 03/23/21 16:54 Atropine Sulfate Inj 1 Mg/10 Ml Disp.Syrin IVP ONCE PRN Symptomatic Bradycardia Clotrimazole applic 03/23/21 17:01 Clotrimazole/Betamethasone 45 Gm Cream TP BID PRN Mild Pain Diltiazem HCl 180 mg 03/23/21 21:00 Diltiazem Hcl 180 Mg Cap.Er.24h PO BEDTIME CATHERINE Vancomycin HCl 1 gm/ Sodium 250 mls @ 250 mls/hr 03/23/21 16:00 Chloride IV 03/26/21 15:59 DAILY CATHERINE Vancomycin HCl 1 gm/ Sodium 250 mls @ 250 mls/hr 03/23/21 16:54 Chloride IV 03/23/21 17:53 ONCE ONE Pantoprazole Sodium 80 mg/ 100 mls @ 10 mls/hr 03/23/21 17:00 Sodium Chloride IV Q10H CATHERINE Sodium Chloride 1,000 mls @ 100 mls/hr 03/23/21 16:54 Sodium Chloride IV 03/24/21 02:53 .Q10H STA Levothyroxine Sodium 100 mcg 03/24/21 09:00 Levothyroxine Sodium 100 Mcg Tablet PO DAILY CATHERINE Losartan Potassium 50 mg 03/24/21 09:00 Losartan Potassium 25 Mg Tablet PO DAILY CATHERINE Nitroglycerin 0.4 mg 03/23/21 16:54 Nitroglycerin 0.4 Mg Tab.Subl SL Q5MIN X 3 DOSES PRN Chest Pain Pravastatin Sodium 80 mg 03/23/21 21:00 Pravastatin Sodium 40 Mg Tablet PO BEDTIME CATHERINE Sodium Chloride 1 syr 03/23/21 21:00 0.9% Sodium Chloride 10 Ml Disp.Syrin IVF Q8HR CATHERINE Tramadol HCl 50 mg 03/23/21 17:01 Tramadol Hcl 50 Mg Tablet PO DAILY PRN Mild Pain Discontinued Medications Generic Name Dose Route Start Last Admin Trade Name Freq PRN Reason Stop Dose Admin Sodium Chloride 500 mls @ 500 mls/hr 03/23/21 14:20 Sodium Chloride IV 03/23/21 15:19 BOLUS STA Ondansetron HCl 4 mg 03/23/21 14:20 Ondansetron Hcl/Pf 4 Mg/2 Ml Sdv IVP 03/23/21 14:21 ONCE ONE Ondansetron HCl 4 mg 03/23/21 16:54 Ondansetron Hcl/Pf 4 Mg/2 Ml Sdv IVP 03/23/21 16:55 ONCE ONE Vital Signs: Temp Pulse Resp BP Pulse Ox 03/23/21 13:40 100.0 F H 67 18 129/62 92 L Discharge Plan Discharge Patient Disposition: ADMITTED INPATIENT Discharge Problem: Esophagitis, Vomiting Prescriptions: No Action digoxin 250 MCG tablet 125 mcg PO DAILY RF: 0 diltiazem HCl 180 MG capsule,extended release 24hr 180 mg PO BEDTIME RF: 0 furosemide 40 MG tablet 40 mg PO QDAC RF: 0 fexofenadine [Rose] 180 MG tablet 180 mg PO BEDTIME PRN (Reason: Allergy Symptoms) RF: 0 sucralfate 1 GM tablet 1 g PO BID RF: 0 Fiber Therapy (m-cellulose) 500 MG tablet 500 mg PO DAILY RF: 0 L.acidoph, paracasei,B. lactis 1 EACH capsule 1 ea PO DAILY RF: 0 pravastatin [Pravachol] 80 MG tablet 80 mg PO BEDTIME Qty: 30 RF: 0 clotrimazole-betamethasone [Lotrisone] 15 GM cream 15 g topical BID PRN (Reason: DERMITITIS) RF: 0 losartan 50 mg Tablet 50 mg PO DAILY RF: 0 tramadol 50 mg Tablet 50 mg PO DAILY PRN (Reason: Pain) RF: 0 levothyroxine 100 mcg Tablet 100 mcg PO DAILY RF: 0 pantoprazole 40 mg Tablet,Delayed Release (Dr/Ec) 40 mg PO DAILY RF: 0 fenofibrate nanocrystallized 145 mg Tablet 145 mg PO DAILY RF: 0 magnesium oxide 400 mg magnesium Capsule 400 mg PO DAILY RF: 0 potassium chloride 20 mEq Tablet Extended Release 20 meq PO DAILY RF: 0 atenolol 50 mg tablet 50 mg PO DAILY RF: 0 ED Provider: JASPREET HAMLIN Condition: Stable Physician Progress Note: []treatment and disposition d/w Dr Myers
[2021-03-23 14:44] LABS: BASOPHILS # (AUTO) 0.1 K/uL (0-0.2); BASOPHILS % (AUTO) 0.5 % (0.0-3.0); EOSINOPHILS # (AUTO) 0.2 K/ul (0.0-0.7); EOSINOPHILS % (AUTO) 1.2 % (0.0-7.0); HEMATOCRIT 32.9 % (37.0-47.0); HEMOGLOBIN 10.6 g/dl (12.0-16.0); IMMATURE GRANULOCYTE # (AUTO) 0.1 (0.0-1.0); IMMATURE GRANULOCYTE % (AUTO) 0.9 % (0.0-5.0); LYMPHOCYTES # (AUTO) 0.9 K/uL (0.60-3.4); LYMPHOCYTES % (AUTO) 5.8 (10.0-50.0); MEAN CORPUSCULAR HEMOGLOBIN 28.9 pg (27.0-31.0); MEAN CORPUSCULAR HGB CONC 32.2 (31.8-35.4); MEAN CORPUSCULAR VOLUME 89.6 fl (81.0-99.0); MONOCYTES # (AUTO) 1.5 K/uL (0.4-2.0); MONOCYTES % (AUTO) 10.1 (0-10); NEUTROPHILS # (AUTO) 12.2 K/ul (2.0-6.9); NEUTROPHILS % (AUTO) 81.5 % (42.2-75.2); PLATELET COUNT 577 10^3/uL (140-440); RDW COEFFICIENT OF VARIATION 14.7 % (11.6-14.8); RED BLOOD COUNT 3.67 10^6/ul (4.20-5.40); WHITE BLOOD COUNT 14.95 K/ul (4.6-10.2)
[2021-03-23 14:56] LABS: ALANINE AMINOTRANSFERASE 9.1 U/L (0-35); ALBUMIN 4.21 g/dL (3.5-5.0); ALKALINE PHOSPHATASE 63.3 U/L (53-141); BILIRUBIN,TOTAL 0.89 mg/dL (0.2-1.3); BLOOD UREA NITROGEN 32.1 mg/dL (7-17); CALCIUM 9.18 mg/dL (8.4-10.2); CARBON DIOXIDE 31.9 mmol/L (22-30.0); CHLORIDE 91.3 mmol/L (98-107); CREATININE 2.1 mg/dL (0.60-1.30); GLUCOSE 86.2 mg/dL (74-106); LIPASE 40.2 U/L (23-300); POTASSIUM 4.04 mmol/L (3.5-5.1); SODIUM 132.3 mmol/L (134.5-145); TOTAL PROTEIN 7.77 g/dL (6.3-8.2)
[2021-03-23 15:07] LABS: TROPONIN I 0.013 ng/ml (0.0000-0.120)
--- NOTE | 2021-03-23 15:25 | DI ---
EXAM: Single frontal view of the chest HISTORY: Nausea. COMPARISON: Chest x-ray 05/06/[address] chest 05/31/2020 FINDINGS: Cardiomediastinal silhouette is stable and mildly enlarged. There is no pneumothorax or ef fusion. There is no consolidation, nodule or mass. The osseous structures demonstrate degenerative disease of the spine and shoulders. IMPRESSION: Stable cardiomegaly with no acute cardiopulmonary process
[2021-03-23 15:32] LABS: BILIRUBIN,URINE Negative (NEGATIVE); CLARITY,URINE Clear (CLEAR); COLOR,URINE Yellow (YELLOW); GLUCOSE, URINE (UA) Negative (NEGATIVE); KETONES,URINE Negative (NEGATIVE); LEUKOCYTE ESTERASE ,URINE Negative (NEGATIVE); NITRITE,URINE Negative (NEGATIVE); PH,URINE 5.5 (5-9); PROTEIN,URINE Negative (NEGATIVE); URINE, BLOOD Negative (NEGATIVE); UROBILINOGEN,URINE 0.2 (0.2)
--- NOTE | 2021-03-23 15:47 | CT ---
EXAM: CT abdomen pelvis without contrast HISTORY: Nausea, vomiting COMPARISON: 10/28/2016 TECHNIQUE: CT abdomen pelvis performed without intravenous contrast. Coronal and sagittal reformatt ed images obtained FINDINGS: Mild bibasilar atelectasis. No free air. No acute abnormalities of the bones. Degenerat terrell change in the spine. 7 mm anterolisthesis of L4 on L5. Heart is enlarged. Evaluation organ par enchyma limited without contrast. Liver unremarkable. Patient status post cholecystectomy. Pancrea s unremarkable. Spleen unremarkable. Adrenals unremarkable. No hydronephrosis or nephrolithiasis. 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 No calculi visualized in the normal course of the ureters. Bladder unremarkable. Patient status post hysterectomy. Aorta normal in caliber. Athero sclerosis. Possible wall thickening distal esophagus. No dilated loops small bowel. Appendix appea rs normal. Colonic diverticulosis. No ascites. Mildly enlarged bilateral inguinal lymph nodes measu re up to 1.2 cm on the left. IMPRESSION: 1. No bowel or urinary obstruction. Normal appendix. 2. Possible wall thickening distal esophagus may relate to esophagitis. Finding can be correlate wi endoscopy to exclude underlying mass lesion. 3. Colonic diverticulosis. 4. Atherosclerosis. 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 5. Mild nonspecific bilateral inguinal lymphadenopathy. 6. Cardiomegaly All CT scans are performed using dose optimization techniques as appropriate to the performed exam an d include at least one of the following: Automated exposure control, adjustment of the mA and/or kV according t o size, and the use of iterative reconstruction technique.
[2021-03-23 15:58] LABS: BORDETELLA PARAPERTUSSIS (PCR) NOT DETECTED (NOT DETECT); BORDETELLA PERTUSSIS (PCR) NOT DETECTED (NOT DETECT); CHLAMYDIA PNEUMONIAE (PCR) NOT DETECTED (NOT DETECT); CORONAVIRUS 229E (PCR) NOT DETECTED (NOT DETECT); CORONAVIRUS HKU1 (PCR) NOT DETECTED (NOT DETECT); CORONAVIRUS NL63 (PCR) NOT DETECTED (NOT DETECT); CORONAVIRUS OC43 (PCR) NOT DETECTED (NOT DETECT); HUMAN METAPNEUMOVIRUS (PCR) NOT DETECTED (NOT DETECT); HUMAN RHINOVIRUS/ENTEROV (PCR) NOT DETECTED (NOT DETECT); INFLUENZA B (PCR) NOT DETECTED (NOT DETECT); MYCOPLASMA PNEUMONIAE (PCR) NOT DETECTED (NOT DETECT); PARAINFLUENZA VIRUS 1 (PCR) NOT DETECTED (NOT DETECT); PARAINFLUENZA VIRUS 2 (PCR) NOT DETECTED (NOT DETECT); PARAINFLUENZA VIRUS 3 (PCR) NOT DETECTED (NOT DETECT); PARAINFLUENZA VIRUS 4 (PCR) NOT DETECTED (NOT DETECT); RESPIRATORY SYNCYTIAL V (PCR) NOT DETECTED (NOT DETECT); SARS_COV_2 (PCR) NOT DETECTED (NOT DETECT)
[2021-03-23 16:48] LABS: ADENOVIRUS (PCR) NOT DETECTED (NOT DETECT)
[2021-03-23] MEDS ORDERED: NITROSTAT SL PRN ×2 (16:54→22:49)
[2021-03-23] MEDS ORDERED: ATROPINE SULFATE PFS IVP PRN ×2 (16:54→22:49)
[2021-03-23] MEDS ORDERED: VANCOMYCIN 1 GM in SODIUM CHLORIDE 250 ML IV ONE (16:54)
[2021-03-23] MEDS ORDERED: SODIUM CHLORIDE 1,000 ML IV STA (16:54)
[2021-03-23] MEDS ORDERED: ZOFRAN 4 MG/2 ML IVP PRN (17:32)
[2021-03-23] MEDS ORDERED: LIDOCAINE HCL 1% SDV ONE (17:53)
[2021-03-23] MEDS ORDERED: LIDOCAINE 1% 2ML (SURGERY ONLY) INJ ONE (17:53)
[2021-03-23] MEDS: SODIUM CHLORIDE 1,000 ML IV SCH (18:30)
[2021-03-23] MEDS: VANCOMYCIN 1 GM in SODIUM CHLORIDE 250 ML IV SCH (18:30)
[2021-03-23 18:53] LABS: CREATINE KINASE 63.1 U/L (30-135)
[2021-03-23 19:06] LABS: TROPONIN I 0.018 ng/ml (0.0000-0.120)
[2021-03-23 21:30] VITALS: BMI 32.6
[2021-03-23] MEDS: CARDIZEM CD PO SCH (22:03)
[2021-03-23] MEDS: PRAVACHOL PO SCH (22:03)
[2021-03-23] MEDS ORDERED: TYLENOL PO PRN (22:49)
[2021-03-23 23:44] LABS: BASOPHILS # (AUTO) 0.1 K/uL (0-0.2); BASOPHILS % (AUTO) 0.4 % (0.0-3.0); EOSINOPHILS # (AUTO) 0.3 K/ul (0.0-0.7); EOSINOPHILS % (AUTO) 1.8 % (0.0-7.0); HEMATOCRIT 30.2 % (37.0-47.0); HEMOGLOBIN 9.9 g/dl (12.0-16.0); IMMATURE GRANULOCYTE # (AUTO) 0.1 (0.0-1.0); IMMATURE GRANULOCYTE % (AUTO) 0.7 % (0.0-5.0); LYMPHOCYTES # (AUTO) 0.8 K/uL (0.60-3.4); LYMPHOCYTES % (AUTO) 5.3 (10.0-50.0); MEAN CORPUSCULAR HGB CONC 32.8 (31.8-35.4); MEAN CORPUSCULAR VOLUME 88.6 fl (81.0-99.0); MONOCYTES # (AUTO) 1.5 K/uL (0.4-2.0); MONOCYTES % (AUTO) 10.2 (0-10); NEUTROPHILS # (AUTO) 12.4 K/ul (2.0-6.9); NEUTROPHILS % (AUTO) 81.6 % (42.2-75.2); PLATELET COUNT 507 10^3/uL (140-440); RDW COEFFICIENT OF VARIATION 14.6 % (11.6-14.8); RED BLOOD COUNT 3.41 10^6/ul (4.20-5.40); WHITE BLOOD COUNT 15.13 K/ul (4.6-10.2)
[2021-03-23 23:56] LABS: ALANINE AMINOTRANSFERASE 7.9 U/L (0-35); ALBUMIN 3.62 g/dL (3.5-5.0); ASPARTATE AMINO TRANSFERASE 28.7 U/L (14-36); BILIRUBIN,TOTAL 0.54 mg/dL (0.2-1.3); BLOOD UREA NITROGEN 26.5 mg/dL (7-17); CALCIUM 8.71 mg/dL (8.4-10.2); CARBON DIOXIDE 29.6 mmol/L (22-30.0); CHLORIDE 96.5 mmol/L (98-107); CREATININE 1.81 mg/dL (0.60-1.30); GLUCOSE 90.8 mg/dL (74-106); POTASSIUM 3.33 mmol/L (3.5-5.1); SODIUM 133.8 mmol/L (134.5-145); TOTAL PROTEIN 6.75 g/dL (6.3-8.2)
[2021-03-24 00:07] LABS: TROPONIN I 0.023 ng/ml (0.0000-0.120)
[2021-03-24 00:14] LABS: CREATINE KINASE 51.6 U/L (30-135)
[2021-03-24] MEDS ORDERED: PROTONIX IV ONE (00:29)
[2021-03-24] MEDS: PROTONIX IV 80 MG in SODIUM CHLORIDE 100 ML IV SCH ×2 (00:34→04:24)
[2021-03-24 07:09] LABS: BASOPHILS # (AUTO) 0.1 K/uL (0-0.2); BASOPHILS % (AUTO) 0.5 % (0.0-3.0); EOSINOPHILS # (AUTO) 0.4 K/ul (0.0-0.7); EOSINOPHILS % (AUTO) 2.8 % (0.0-7.0); HEMATOCRIT 27.9 % (37.0-47.0); HEMOGLOBIN 9.2 g/dl (12.0-16.0); IMMATURE GRANULOCYTE # (AUTO) 0.1 (0.0-1.0); IMMATURE GRANULOCYTE % (AUTO) 0.8 % (0.0-5.0); LYMPHOCYTES # (AUTO) 0.7 K/uL (0.60-3.4); LYMPHOCYTES % (AUTO) 4.7 (10.0-50.0); MEAN CORPUSCULAR HEMOGLOBIN 29.2 pg (27.0-31.0); MEAN CORPUSCULAR VOLUME 88.6 fl (81.0-99.0); MONOCYTES # (AUTO) 1.5 K/uL (0.4-2.0); MONOCYTES % (AUTO) 10.8 (0-10); NEUTROPHILS # (AUTO) 11.4 K/ul (2.0-6.9); NEUTROPHILS % (AUTO) 80.4 % (42.2-75.2); PLATELET COUNT 464 10^3/uL (140-440); RDW COEFFICIENT OF VARIATION 14.6 % (11.6-14.8); RED BLOOD COUNT 3.15 10^6/ul (4.20-5.40); WHITE BLOOD COUNT 14.15 K/ul (4.6-10.2)
[2021-03-24 07:22] LABS: ALANINE AMINOTRANSFERASE 7.2 U/L (0-35); ALBUMIN 3.33 g/dL (3.5-5.0); ALKALINE PHOSPHATASE 56.3 U/L (53-141); ASPARTATE AMINO TRANSFERASE 23.3 U/L (14-36); BILIRUBIN,TOTAL 0.45 mg/dL (0.2-1.3); BLOOD UREA NITROGEN 22.5 mg/dL (7-17); CALCIUM 8.41 mg/dL (8.4-10.2); CARBON DIOXIDE 31.2 mmol/L (22-30.0); CHLORIDE 96.1 mmol/L (98-107); CREATININE 1.63 mg/dL (0.60-1.30); GLUCOSE 89.1 mg/dL (74-106); POTASSIUM 3.14 mmol/L (3.5-5.1); SODIUM 134.8 mmol/L (134.5-145); TOTAL PROTEIN 6.32 g/dL (6.3-8.2)
[2021-03-24 07:33] LABS: TROPONIN I 0.026 ng/ml (0.0000-0.120)
[2021-03-24] MEDS ORDERED: K-DUR PO SCH (09:11)
[2021-03-24] MEDS: VANCOMYCIN 1 GM in SODIUM CHLORIDE 250 ML IV SCH (10:05)
[2021-03-24] MEDS: TYLENOL PO PRN (10:06)
[2021-03-24] MEDS: POTASSIUM CHL 10% ORAL SOL PO SCH ×3 (10:06→17:37)
[2021-03-24] MEDS: PROTONIX IV IVP SCH ×2 (10:06→21:37)
[2021-03-24] MEDS: TENORMIN PO SCH (10:07)
[2021-03-24] MEDS: COZAAR PO SCH (10:07)
[2021-03-24] MEDS: SYNTHROID PO SCH (10:32)
--- NOTE | 2021-03-24 10:54 | HP ---
DATE OF SERVICE: 03/23/21 HISTORY OF PRESENT ILLNESS: 80-year-old white female who had been going to [facility] for a lesion on her toe, went to [facility] yesterday. They did lab work and her creatinine was up to 2.4. She called this morning, said she had been having some nausea and vomiting. We instructed her to go to the emergency room. PAST MEDICAL HISTORY: Wound of left foot. She sees Dr. Liu Left thyroid nodule - had negative biopsy from Dr. Gonzalez Vitamin D deficiency Compression fracture L4-T7-T10 Chronic cough Distension of esophagus with history of esophageal varices - she sees Dr. Donaldson along with Dr. Basurto. Dr. Donaldson is at [place]. Last endo was 08/21. Obesity Polyneuropathy Anxiety Palpitations Stasis dermatitis Peripheral vascular disease, sees Dr. Heredia History of tinea capitis History of SVT Left hip pain History of GI bleed Iron deficiency anemia, sees Dr. Collins Atherosclerotic heart disease per CT Crest syndrome Chronic anemia Leukocytosis Carotid stenosis - sees Dr. Heredia Hypertension COPD Hyperglycemia Dyslipidemia PAST SURGICAL HISTORY: Carpal tunnel surgery Esophageal dilatation Left knee replacement in 2005 Chronic leg edema with varicose veins History of polycythemia REVIEW OF SYSTEMS: CONSTITUTIONAL: Positive for weakness. No night sweats. No fatigue, malaise, lethargy. No fever or chills. HEENT: Eyes: No visual changes. No eye pain. No eye discharge. ENT: No runny nose. No epistaxis. No sinus pain. No sore throat. No odynophagia. No ear pain. No congestion. RESPIRATORY: No cough, no congestion. No hemoptysis. No shortness of breath. CARDIOVASCULAR: No angina symptoms. No CHF symptoms. No atypical chest pain for CAD. No palpitations. No PND. No orthopnea. GASTROINTESTINAL: Nausea and vomiting. No abdominal pain. No diarrhea or constipation. No hematemesis. No hematochezia. GENITOURINARY: No urgency. No frequency. No dysuria. No hematuria. No obstructive symptoms. No discharge. No pain. No significant abnormal bleeding. MUSCULOSKELETAL: No musculoskeletal pain. No joint swelling. No arthritis. NEUROLOGICAL: No headache. No neck pain. No syncope. No seizures. No dizziness. PSYCHIATRIC: Not anxious. No depression. No suicidal thoughts. No homicidal thoughts. SKIN: No rash. Lesion on left toe. ENDOCRINE: No unexplained weight loss. No weight gain. HEMATOLOGIC/LYMPHATIC: No anemia. No purpura. No petechiae. No prolonged or excessive bleeding. No palpable lymph nodes. PERSONAL/FAMILY/SOCIAL HISTORY: Nonsmoker. No alcohol or illicit drug use. She lives at home with her . Performs all ADLs. MEDICATIONS: Diltiazem 180 mg p.o. bedtime Furosemide 40 mg p.o. q.d a.c. Fexofenadine 180 mg p.o. bedtime p.r.n. Sucralfate 1 gm p.o. b.i.d. L. acidoph, paracasei, B. lactis 10 billion cell capsule one each p.o. daily Methylcellulose 500 mg p.o. daily Pravastatin 80 mg p.o. bedtime Digoxin 125 mcg p.o. daily Clotrimazole-betamethasone 15 gm topical b.i.d. p.r.n. Pantoprazole 40 mg p.o. daily Losartan 50 mg p.o. daily Levothyroxine 100 mcg p.o. daily Fenofibrate 145 mg p.o. daily Tramadol 50 mg p.o. daily p.r.n. Magnesium Oxide 400 mg p.o. daily Potassium Chloride 20 mEq p.o. daily Atenolol 50 mg p.o. daily ALLERGIES: SULFA PHYSICAL EXAMINATION: HEENT: Pallor. Head normocephalic, atraumatic. Eyes: Extraocular muscles are intact. Pupils are equal, round and reactive to light and accommodation. Ears: No lesions. Nose appeared normal. Throat: No exudate or erythema. NECK: Supple. No JVD, no carotid bruit. No lymphadenopathy or thyromegaly. LUNGS: Diminished breath sounds. Clear to auscultation. Percussion note normal. Chest symmetrical. HEART: S1, S2, no S3. No murmur. No cyanosis or clubbing. No ascites. Pulses: Dorsalis pedis and posterior tibial pulses +1 to +2 bilaterally. ABDOMEN: Soft. Nontender. Bowel sounds active. No CVA tenderness. No mass felt. EXTREMITIES: Serosanguineous oozing from the toe. +2 to +3 bilateral lower extremity edema. Full range of motion of all extremities, equal. NEUROLOGIC: No focal deficit. Cranial nerves II through XII are grossly intact. No headache, no double vision or headache. SKIN: Not dry. Intact. Turgor - normal. LYMPHATIC: No palpable lymph nodes/no lymphedema. MUSCULOSKELETAL: Normal joints with no swelling. Muscle tone is normal. Sodium 132, potassium 4.04, BUN 32, creatinine 2.10, white count 14.95, hemoglobin 10.6, hematocrit 32.9, platelets 577. ASSESSMENT: 1. ACUTE GASTRITIS 2. BILATERAL LEG EDEMA 3. WOUND ON LEFT GREAT TOE WITH POSSIBLE OSTEOMYELITIS PLAN: 1. We will admit. 2. Routine telemetry orders. 3. CBC, CMP daily. 4. Continue home medications. 5. After reviewing the last office note from yesterday from Dr. Jesse Liu at [facility], they had recommended that she be placed on Dalvance which is a one dose medication antibiotic. After speaking with pharmacy, Vancomycin would be the most similar that we have available. We will start this and dose it according to her renal function. 6. She is to continue Mupirocin ointment b.i.d. Will do a sed rate and CRP. She is to stay off of it as much as possible. Elevate the feet. Normal Saline IV at 75 cc/hr. 7. Zofran 4 mg IV q.6. 8. UA. 9. Chest x-ray. 10. Follow closely. TIME SPENT: More than 70 minutes. FAUSTO
--- NOTE | 2021-03-24 11:32 | PCM.PROG ---
Attending Provider: ATTENDING PROVIDER: Dr. KASSIE MYERS DATE OF SERVICE: 03/24/21 SUBJECTIVE: This 80 year old /WHITE F was hospitalized 03/23/21 with vomiting, nausea and near renal failure with dehydration. Further workup revealed esophagitis. The patient has been on proton pump inhibitors. The patient's condition has continued to improve. She is feeling better. Kidney function has improved. She is receiving IV fluids. Mild hypokalemia. REVIEW OF SYSTEMS: CONSTITUTIONAL: No night sweats. No fatigue, malaise, lethargy. No fever or chills. Color is somewhat pale but skin turgor is better. HEENT: Eyes: No visual changes. No eye pain. No eye discharge. ENT: No runny nose. No epistaxis. No sinus pain. No odynophagia. No congestion. RESPIRATORY: No cough, no congestion. No hemoptysis. No shortness of breath. CARDIOVASCULAR: No angina symptoms. No CHF symptoms. No atypical chest pain for CAD. No palpitations. No orthopnea.. GASTROINTESTINAL: No abdominal pain. No nausea or vomiting. No diarrhea or constipation. No hematemesis. No hematochezia. GENITOURINARY: No urgency. No frequency. No dysuria. No hematuria. No obstructive symptoms. No discharge. No pain. No significant abnormal bleeding. MUSCULOSKELETAL: No musculoskeletal pain; no joint swelling. NEUROLOGICAL: Awake, alert, oriented to time, place and person. No headache. No neck pain. No syncope. No seizures. No dizziness. PSYCHIATRIC: Not anxious. No depression. No suicidal thoughts. No homicidal thoughts. SKIN: No rash. No lesions. No wounds. ENDOCRINE: No unexplained weight loss. No weight gain. HEMATOLOGIC/LYMPHATIC: No anemia. No purpura. No petechiae. No prolonged or excessive bleeding. No palpable lymph nodes. PHYSICAL EXAMINATION: GENERAL: The patient is awake, alert and oriented, lying in bed in no distress. VITAL SIGNS: Temperature 98.4 F, Pulse 62, Respiratory Rate 18, BP 102/49, Pulse Ox 99% HEENT: Head normocephalic, atraumatic. Eyes: Extraocular muscles are intact. Pupils are equal, round and reactive to light and accommodation. Ears: No lesions. Nose appeared normal. Throat: No exudate or erythema. NECK: Supple. No JVD, no carotid bruit. No lymphadenopathy or thyromegaly. LUNGS: Clear to auscultation. Percussion note normal. Chest symmetrical. HEART: S1, S2, no S3. Grade I to II/ Systolic murmurs. No cyanosis or cl ubbing. No ascites. Pulses: Dorsalis pedis and posterior tibial pulses +1 to +2 both sides. ABDOMEN: Soft. Non-tender. Bowel sounds active. No CVA tenderness. No mass felt. EXTREMITIES: Bilateral leg edema trace to +1 with inflammation change from chronic pitting edema of lower extremities. Ulcer on left great toe plantar surface followed by Wound Care. osteomyelitis. Full range of motion of all extremities, equal. NEUROLOGIC: No focal deficit. Cranial nerves II through XII are grossly intact. No headache, no double vision or headache. SKIN: Warm and dry. Intact. Turgor-normal. LYMPHATIC: No palpable lymph nodes/no lymphedema. MUSCULOSKELETAL: Normal joints with no swelling. Muscle tone is normal. LAB REVIEW: 03/24/21 07:04 03/24/21 07:04 03/24/21 07:04: Sodium 134.8, Potassium 3.14 L, Chloride 96.1 L, Carbon Dioxide 31.2 H, Anion Gap 10.64, BUN 22.5 H, Creatinine 1.63 H, Estimated GFR (MDRD) 30.00, BUN/Creatinine Ratio 13.80, Glucose 89.1, Calcium 8.41, Total Bilirubin 0.45, AST 23.3, ALT 7.2, Alkaline Phosphatase 56.3, Troponin I 0.026, Total Protein 6.32, Albumin 3.33 L, Globulin 2.99, Albumin/Globulin Ratio 1.11 03/24/21 07:04: WBC 14.15 H, RBC 3.15 L, Hgb 9.2 L, Hct 27.9 L, MCV 88.6, MCH 29.2, MCHC 33.0, RDW Coeff of Martha 14.6, Plt Count 464 H, Immature Gran % (Auto) 0.8, Neut % (Auto) 80.4 H, Lymph % (Auto) 4.7 L, Franklin % (Auto) 10.8 H, Eos % (Auto) 2.8, Baso % (Auto) 0.5, Neut # (Auto) 11.4 H, Lymph # (Auto) 0.7, Franklin # (Auto) 1.5, Eos # (Auto) 0.4, Baso # (Auto) 0.1, Immature Gran # (Auto) 0.1 03/23/21 23:37: Total Creatine Kinase 51.6, Troponin I 0.023 03/23/21 23:37: Sodium 133.8 L, Potassium 3.33 L, Chloride 96.5 L, Carbon Dioxide 29.6, Anion Gap 11.03, BUN 26.5 H, Creatinine 1.81 H, Estimated GFR (MDRD) 27.00, BUN/Creatinine Ratio 14.64, Glucose 90.8, Calcium 8.71, Total Bilirubin 0.54, AST 28.7, ALT 7.9, Alkaline Phosphatase 58.0, Troponin I Cancelled, Total Protein 6.75, Albumin 3.62, Globulin 3.13, Albumin/Globulin Ratio 1.15 03/23/21 23:37: WBC 15.13 H, RBC 3.41 L, Hgb 9.9 L, Hct 30.2 L, MCV 88.6, MCH 29.0, MCHC 32.8, RDW Coeff of Martha 14.6, Plt Count 507 H, Immature Gran % (Auto) 0.7, Neut % (Auto) 81.6 H, Lymph % (Auto) 5.3 L, Franklin % (Auto) 10.2 H, Eos % (Auto) 1.8, Baso % (Auto) 0.4, Neut # (Auto) 12.4 H, Lymph # (Auto) 0.8, Franklin # (Auto) 1.5, Eos # (Auto) 0.3, Baso # (Auto) 0.1, Immature Gran # (Auto) 0.1 03/23/21 18:22: Total Creatine Kinase 63.1, Troponin I 0.018 03/23/21 15:55: Adenovirus (PCR) Not detected, B. pertussis DNA (PCR) Not detected, B.parapertussis DNA PCR Not detected, C. pneumoniae DNA (PCR) Not detected, Coronavirus OC43 (PCR) Not detected, Coronavirus HKU1 (PCR) Not detected, Coronavirus 229E (PCR) Not detected, Coronavirus NL63 (PCR) Not detected, Human Metapneumovir PCR Not detected, Influenza Type A (PCR) Not detected, Influenza B (RT-PCR) Not detected, M. pneumoniae (PCR) Not detected, Parainfluenza 1 (PCR) Not detected, Parainfluenza 2 (PCR) Not detected, Parainfluenza 3 (PCR) Not detected, Parainfluenza 4 (PCR) Not detected, RSV (PCR) Not detected, Entero/Rhino (PCR) Not detected, SARS-CoV-2 (PCR) Not detected 03/23/21 15:30: Urine Color Yellow, Urine Clarity Clear, Urine pH 5.5, Ur Specific Nevis <=1.005, Urine Protein Negative, Urine Glucose (UA) Negative, Urine Ketones Negative, Urine Blood Negative, Urine Nitrite Negative, Urine Bilirubin Negative, Urine Urobilinogen 0.2, Ur Leukocyte Esterase Negative 03/23/21 14:35: Lactic Acid 0.80 03/23/21 14:35: Sodium 132.3 L, Potassium 4.04, Chloride 91.3 L, Carbon Dioxide 31.9 H, Anion Gap 13.14, BUN 32.1 H, Creatinine 2.10 H, Estimated GFR (MDRD) 23.00, BUN/Creatinine Ratio 15.28, Glucose 86.2, Calcium 9.18, Total Bilirubin 0.89, AST 44.0 H, ALT 9.1, Alkaline Phosphatase 63.3, Troponin I 0.013, Total Protein 7.77, Albumin 4.21, Globulin 3.56, Albumin/Globulin Ratio 1.18, Lipase 40.2 03/23/21 14:35: WBC 14.95 H, RBC 3.67 L, Hgb 10.6 L, Hct 32.9 L, MCV 89.6, MCH 28.9, MCHC 32.2, RDW Coeff of Martha 14.7, Plt Count 577 H, Immature Gran % (Auto) 0.9, Neut % (Auto) 81.5 H, Lymph % (Auto) 5.8 L, Franklin % (Auto) 10.1 H, Eos % (Auto) 1.2, Baso % (Auto) 0.5, Neut # (Auto) 12.2 H, Lymph # (Auto) 0.9, Franklin # (Auto) 1.5, Eos # (Auto) 0.2, Baso # (Auto) 0.1, Immature Gran # (Auto) 0.1 ASSESSMENT: Please see below. PLAN: 1. Continue IV Fluids 2. Continue Protonix 3. Encourage the patient to eat 4. Potassium supplement 5. Monitor CBC and CMP 6. Continue Vancomycin. 7. We will get in touch with Wound Care to be given instructions on care before she is seen at Wound Care on in the afternoon. Plan and coordination of the patient's care discussed in the presence of Machine Technician and nurse. CONDITION: Stable SCRIBED BY: SIMONA HITCHCOCK Foil Stamp Operator scribed while in presence of service performed by Dr. KASSIE MYERS on 03/24/21 ([id number])
[2021-03-24] MEDS: SODIUM CHLORIDE 1,000 ML IV SCH ×3 (12:33→17:41)
[2021-03-24] MEDS ORDERED: LASIX IVP ONE ×2 (15:29→16:00)
[2021-03-24] MEDS: LOTRISONE 45 GM TP PRN (17:38)
[2021-03-24] MEDS: PRAVACHOL PO SCH (21:06)
[2021-03-24] MEDS: CARDIZEM CD PO SCH (21:07)
[2021-03-25 05:26] LABS: BASOPHILS # (AUTO) 0.1 K/uL (0-0.2); BASOPHILS % (AUTO) 0.6 % (0.0-3.0); EOSINOPHILS # (AUTO) 0.2 K/ul (0.0-0.7); EOSINOPHILS % (AUTO) 1.3 % (0.0-7.0); HEMATOCRIT 27.4 % (37.0-47.0); HEMOGLOBIN 8.6 g/dl (12.0-16.0); IMMATURE GRANULOCYTE # (AUTO) 0.1 (0.0-1.0); IMMATURE GRANULOCYTE % (AUTO) 0.6 % (0.0-5.0); LYMPHOCYTES # (AUTO) 0.7 K/uL (0.60-3.4); LYMPHOCYTES % (AUTO) 5.4 (10.0-50.0); MEAN CORPUSCULAR HEMOGLOBIN 28.7 pg (27.0-31.0); MEAN CORPUSCULAR HGB CONC 31.4 (31.8-35.4); MEAN CORPUSCULAR VOLUME 91.3 fl (81.0-99.0); MONOCYTES # (AUTO) 1.7 K/uL (0.4-2.0); MONOCYTES % (AUTO) 12.6 (0-10); NEUTROPHILS # (AUTO) 10.8 K/ul (2.0-6.9); NEUTROPHILS % (AUTO) 79.5 % (42.2-75.2); PLATELET COUNT 482 10^3/uL (140-440); RDW COEFFICIENT OF VARIATION 14.9 % (11.6-14.8); WHITE BLOOD COUNT 13.54 K/ul (4.6-10.2)
[2021-03-25 05:43] LABS: ALANINE AMINOTRANSFERASE 6.3 U/L (0-35); ALBUMIN 3.11 g/dL (3.5-5.0); ALKALINE PHOSPHATASE 49.8 U/L (53-141); ASPARTATE AMINO TRANSFERASE 18.8 U/L (14-36); BILIRUBIN,TOTAL 0.33 mg/dL (0.2-1.3); BLOOD UREA NITROGEN 17.1 mg/dL (7-17); CALCIUM 8.12 mg/dL (8.4-10.2); CARBON DIOXIDE 28.7 mmol/L (22-30.0); CHLORIDE 101.9 mmol/L (98-107); CREATININE 1.3 mg/dL (0.60-1.30); GLUCOSE 94.8 mg/dL (74-106); POTASSIUM 3.19 mmol/L (3.5-5.1); SODIUM 136.7 mmol/L (134.5-145); TOTAL PROTEIN 5.85 g/dL (6.3-8.2)
[2021-03-25] MEDS: SYNTHROID PO SCH (06:00)
[2021-03-25] MEDS: PROTONIX IV IVP SCH ×2 (08:44→20:37)
[2021-03-25] MEDS: TENORMIN PO SCH (08:44)
[2021-03-25] MEDS: COZAAR PO SCH (08:45)
[2021-03-25] MEDS: POTASSIUM CHL 10% ORAL SOL PO SCH ×3 (08:45→16:26)
[2021-03-25] MEDS: SODIUM CHLORIDE 1,000 ML IV SCH ×2 (08:45→13:23)
[2021-03-25] MEDS: VANCOMYCIN 1 GM in SODIUM CHLORIDE 250 ML IV SCH (08:53)
[2021-03-25] MEDS ORDERED: POTASSIUM CHL 10% ORAL SOL PO STA (13:04)
[2021-03-25] MEDS ORDERED: POTASSIUM CHL 10% ORAL SOL PO ONE (13:15)
[2021-03-25] MEDS: ULTRAM PO PRN (16:25)
[2021-03-25] MEDS: CARDIZEM CD PO SCH (20:34)
[2021-03-25] MEDS: PRAVACHOL PO SCH (20:34)
[2021-03-26] MEDS: SYNTHROID PO SCH (05:38)
[2021-03-26] MEDS: TYLENOL PO PRN (06:02)
[2021-03-26] MEDS: PROTONIX IV IVP SCH ×2 (09:01→20:06)
[2021-03-26] MEDS: COZAAR PO SCH (09:08)
[2021-03-26] MEDS: POTASSIUM CHL 10% ORAL SOL PO SCH ×3 (09:08→13:07)
[2021-03-26] MEDS: VANCOMYCIN 1 GM in SODIUM CHLORIDE 250 ML IV SCH (09:08)
[2021-03-26] MEDS: TENORMIN PO SCH (09:14)
[2021-03-26 12:41] LABS: BASOPHILS # (AUTO) 0.1 K/uL (0-0.2); BASOPHILS % (AUTO) 0.4 % (0.0-3.0); EOSINOPHILS # (AUTO) 0.3 K/ul (0.0-0.7); EOSINOPHILS % (AUTO) 1.4 % (0.0-7.0); HEMATOCRIT 31.1 % (37.0-47.0); HEMOGLOBIN 9.9 g/dl (12.0-16.0); IMMATURE GRANULOCYTE # (AUTO) 0.1 (0.0-1.0); IMMATURE GRANULOCYTE % (AUTO) 0.6 % (0.0-5.0); LYMPHOCYTES % (AUTO) 5.5 (10.0-50.0); MEAN CORPUSCULAR HEMOGLOBIN 28.7 pg (27.0-31.0); MEAN CORPUSCULAR HGB CONC 31.8 (31.8-35.4); MEAN CORPUSCULAR VOLUME 90.1 fl (81.0-99.0); MONOCYTES # (AUTO) 2.8 K/uL (0.4-2.0); MONOCYTES % (AUTO) 14.6 (0-10); NEUTROPHILS # (AUTO) 14.6 K/ul (2.0-6.9); NEUTROPHILS % (AUTO) 77.5 % (42.2-75.2); PLATELET COUNT 477 10^3/uL (140-440); RED BLOOD COUNT 3.45 10^6/ul (4.20-5.40)
[2021-03-26 12:53] LABS: ALANINE AMINOTRANSFERASE 8.8 U/L (0-35); ALBUMIN 3.63 g/dL (3.5-5.0); ALKALINE PHOSPHATASE 60.2 U/L (53-141); ASPARTATE AMINO TRANSFERASE 22.7 U/L (14-36); BILIRUBIN,TOTAL 0.52 mg/dL (0.2-1.3); CALCIUM 8.65 mg/dL (8.4-10.2); CARBON DIOXIDE 24.7 mmol/L (22-30.0); CHLORIDE 103.7 mmol/L (98-107); CREATININE 1.03 mg/dL (0.60-1.30); GLUCOSE 103.2 mg/dL (74-106); POTASSIUM 5.12 mmol/L (3.5-5.1); SODIUM 135.8 mmol/L (134.5-145); TOTAL PROTEIN 6.95 g/dL (6.3-8.2)
[2021-03-26] MEDS: ULTRAM PO PRN (17:29)
[2021-03-26] MEDS: CARDIZEM CD PO SCH (20:05)
[2021-03-26] MEDS: PRAVACHOL PO SCH (20:05)
[2021-03-27 05:25] LABS: BASOPHILS # (AUTO) 0.1 K/uL (0-0.2); BASOPHILS % (AUTO) 0.5 % (0.0-3.0); EOSINOPHILS # (AUTO) 0.2 K/ul (0.0-0.7); EOSINOPHILS % (AUTO) 1.1 % (0.0-7.0); HEMATOCRIT 26.3 % (37.0-47.0); HEMOGLOBIN 8.3 g/dl (12.0-16.0); IMMATURE GRANULOCYTE # (AUTO) 0.1 (0.0-1.0); IMMATURE GRANULOCYTE % (AUTO) 0.6 % (0.0-5.0); LYMPHOCYTES % (AUTO) 6.2 (10.0-50.0); MEAN CORPUSCULAR HEMOGLOBIN 28.5 pg (27.0-31.0); MEAN CORPUSCULAR HGB CONC 31.6 (31.8-35.4); MEAN CORPUSCULAR VOLUME 90.4 fl (81.0-99.0); MONOCYTES % (AUTO) 12.9 (0-10); NEUTROPHILS # (AUTO) 12.5 K/ul (2.0-6.9); NEUTROPHILS % (AUTO) 78.7 % (42.2-75.2); PLATELET COUNT 422 10^3/uL (140-440); RED BLOOD COUNT 2.91 10^6/ul (4.20-5.40); WHITE BLOOD COUNT 15.87 K/ul (4.6-10.2)
[2021-03-27] MEDS: SYNTHROID PO SCH (05:36)
[2021-03-27 05:39] LABS: ALANINE AMINOTRANSFERASE 6.7 U/L (0-35); ALBUMIN 2.92 g/dL (3.5-5.0); ASPARTATE AMINO TRANSFERASE 18.7 U/L (14-36); BILIRUBIN,TOTAL 0.44 mg/dL (0.2-1.3); BLOOD UREA NITROGEN 10.1 mg/dL (7-17); CALCIUM 8.4 mg/dL (8.4-10.2); CARBON DIOXIDE 26.7 mmol/L (22-30.0); CHLORIDE 103.7 mmol/L (98-107); CREATININE 1.09 mg/dL (0.60-1.30); GLUCOSE 87.6 mg/dL (74-106); POTASSIUM 4.19 mmol/L (3.5-5.1); SODIUM 134.1 mmol/L (134.5-145); TOTAL PROTEIN 5.74 g/dL (6.3-8.2)
[2021-03-27] MEDS ORDERED: ROCEPHIN 1 GM/50 ML D5W 1 GM/50 ML BAG IV SCH (09:00)
[2021-03-27] MEDS: PROTONIX IV IVP SCH ×2 (09:18→21:53)
[2021-03-27] MEDS: COZAAR PO SCH (09:19)
[2021-03-27] MEDS: VANCOMYCIN 1 GM in SODIUM CHLORIDE 250 ML IV SCH (09:20)
[2021-03-27] MEDS: TENORMIN PO SCH (09:20)
--- NOTE | 2021-03-27 10:07 | PCM.PROG ---
Attending Provider: ATTENDING PROVIDER: Dr. KASSIE MYERS This patient is seen with Tatiana Coronado, Nurse Practitioner. DATE OF SERVICE: 03/27/21 SUBJECTIVE: This 80 year old /WHITE F was hospitalized 03/23/21. The patient is resting comfortably in the chair. She has appointment with Wound Care today at 3 p.m. Kidney function has improved. Nausea has improved but still not eating much. REVIEW OF SYSTEMS: CONSTITUTIONAL: No night sweats. No fatigue, malaise, lethargy. No fever or chills. HEENT: Eyes: No visual changes. No eye pain. No eye discharge. ENT: No runny nose. No epistaxis. No sinus pain. No odynophagia. No congestion. RESPIRATORY: No cough, no congestion. No hemoptysis. No shortness of breath. CARDIOVASCULAR: No angina symptoms. No CHF symptoms. No atypical chest pain for CAD. No palpitations. No orthopnea.. GASTROINTESTINAL: Nausea. No abdominal pain. No vomiting. No diarrhea or constipation. No hematemesis. No hematochezia. GENITOURINARY: No urgency. No frequency. No dysuria. No hematuria. No obstructive symptoms. No discharge. No pain. No significant abnormal bleeding. MUSCULOSKELETAL: Leg edema. Left foot pain. NEUROLOGICAL: Awake, alert, oriented to time, place and person. No headache. No neck pain. No syncope. No seizures. No dizziness. PSYCHIATRIC: Not anxious. No depression. No suicidal thoughts. No homicidal thoughts. SKIN: No rash. Leg edema, redness. Callus with opening sole of left foot, serosanqueineous drainage scant. ENDOCRINE: No unexplained weight loss. No weight gain. HEMATOLOGIC/LYMPHATIC: No anemia. No purpura. No petechiae. No prolonged or excessive bleeding. No palpable lymph nodes. PHYSICAL EXAMINATION: GENERAL: The patient is awake, alert and oriented, lying/sitting in bed in no distress. VITAL SIGNS: Temperature 99.0 F, Pulse 66, Respiratory Rate 18, BP 114/59, Pulse Ox 95% HEENT: Head normocephalic, atraumatic. Eyes: Extraocular muscles are intact. Pupils are equal, round and reactive to light and accommodation. Ears: No lesions. Nose appeared normal. Throat: No exudate or erythema. NECK: Supple. No JVD, no carotid bruit. No lymphadenopathy or thyromegaly. LUNGS: Diminished breath sounds. Clear to auscultation. Percussion note normal. Chest symmetrical. HEART: S1, S2, no S3. No murmurs. No cyanosis or clubbing. No ascites. Pulses: Dorsalis pedis and posterior tibial pulses +1 to +2 both sides. ABDOMEN: Soft. Non-tender. Bowel sounds active. No CVA tenderness. No mass felt. EXTREMITIES: +1 bilateral lower extremity edema. Redness both lower extremities from ankle to mid lower leg. Callus with opening sole of left foot. Serosanque ineous drainage scant, no redness. Full range of motion of all extremities, equal. NEUROLOGIC: No focal deficit. Cranial nerves II through XII are grossly intact. No headache. No double vision. SKIN: Not dry. Intact. Turgor-normal. LYMPHATIC: No palpable lymph nodes/no lymphedema. MUSCULOSKELETAL: Normal joints with no swelling. Muscle tone is normal. LAB REVIEW: 03/27/21 04:58 03/27/21 04:58 03/27/21 04:58: Sodium 134.1 L, Potassium 4.19, Chloride 103.7, Carbon Dioxide 26.7, Anion Gap 7.89, BUN 10.1, Creatinine 1.09, Estimated GFR (MDRD) 48.00, BUN/Creatinine Ratio 9.26, Glucose 87.6, Calcium 8.40, Total Bilirubin 0.44, AST 18.7, ALT 6.7, Alkaline Phosphatase 54.0, Total Protein 5.74 L, Albumin 2.92 L, Globulin 2.82, Albumin/Globulin Ratio 1.03 03/27/21 04:58: WBC 15.87 H, RBC 2.91 L, Hgb 8.3 L, Hct 26.3 L, MCV 90.4, MCH 28.5, MCHC 31.6 L, RDW Coeff of Martha 15.0 H, Plt Count 422, Immature Gran % (Auto) 0.6, Neut % (Auto) 78.7 H, Lymph % (Auto) 6.2 L, Cass % (Auto) 12.9 H, Eos % (Auto) 1.1, Baso % (Auto) 0.5, Neut # (Auto) 12.5 H, Lymph # (Auto) 1.0, Cass # (Auto) 2.0, Eos # (Auto) 0.2, Baso # (Auto) 0.1, Immature Gran # (Auto) 0.1 03/26/21 12:36: Sodium 135.8, Potassium 5.12 H, Chloride 103.7, Carbon Dioxide 24.7, Anion Gap 12.52, BUN 11.0, Creatinine 1.03, Estimated GFR (MDRD) 52.00, BUN/Creatinine Ratio 10.67, Glucose 103.2, Calcium 8.65, Total Bilirubin 0.52, AST 22.7, ALT 8.8, Alkaline Phosphatase 60.2, Total Protein 6.95, Albumin 3.63, Globulin 3.32, Albumin/Globulin Ratio 1.09 03/26/21 12:36: WBC 18.90 H D, RBC 3.45 L, Hgb 9.9 L, Hct 31.1 L, MCV 90.1, MCH 28.7, MCHC 31.8, RDW Coeff of Martha 15.0 H, Plt Count 477 H, Immature Gran % (Auto) 0.6, Neut % (Auto) 77.5 H, Lymph % (Auto) 5.5 L, Cass % (Auto) 14.6 H, Eos % (Auto) 1.4, Baso % (Auto) 0.4, Neut # (Auto) 14.6 H, Lymph # (Auto) 1.0, Cass # (Auto) 2.8 H, Eos # (Auto) 0.3, Baso # (Auto) 0.1, Immature Gran # (Auto) 0.1 ASSESSMENT: Please see below. 1. Acute gastritis. 2. Anemia. 3. Left foot infection. 4. Chronic bilateral leg edema. PLAN: 1. Possible discharge this afternoon so she can go to wound care. 2. Medication list needs to be reconciled with the office. Plan and coordination of the patient's care discussed in the presence of Grinder Hardboard and nurse. CONDITION: Stable SCRIBED BY: Shefali VELAZQUEZist scribed while in presence of service performed by Dr. Myers/Tatiana Coronado APRN on 03/27/21 ([id number])
--- NOTE | 2021-03-27 11:33 | PN ---
DATE OF SERVICE: 03/26/2021 SUBJECTIVE: 80 year white female hospitalized with vomiting, dehydration. The patient has esophagitis which seems to be resolving. The patient was extremely weak with bilateral leg swelling. REVIEW OF SYSTEMS: CONSTITUTIONAL: No night sweats. No fatigue, malaise, lethargy. No fever or chills. HEENT: Eyes: No visual changes. No eye pain. No eye discharge. ENT: No runny nose. No epistaxis. No sinus pain. No sore throat. No odynophagia. No congestion. RESPIRATORY: No cough, no congestion. No hemoptysis. No shortness of breath. CARDIOVASCULAR: No angina symptoms. No CHF symptoms. No atypical chest pain for CAD. No palpitations. No PND. No orthopnea. GASTROINTESTINAL: No abdominal pain. No nausea or vomiting. No diarrhea or constipation. No hematemesis. No hematochezia. GENITOURINARY: No urgency. No frequency. No dysuria. No hematuria. No obstructive symptoms. No discharge. No pain. No significant abnormal bleeding. MUSCULOSKELETAL: No musculoskeletal pain; no joint swelling. NEUROLOGICAL: No headache. No neck pain. No syncope. No seizures. No dizziness. PSYCHIATRIC: Not anxious. No depression. No suicidal thoughts. No homicidal thoughts. SKIN: No rash. No lesions. No wounds. ENDOCRINE: No unexplained weight loss. No weight gain. HEMATOLOGIC/LYMPHATIC: No anemia. No purpura. No petechiae. No prolonged or excessive bleeding. No palpable lymph nodes. PHYSICAL EXAMINATION: VITAL SIGNS: Temperature 97.8, pulse 73, respiratory rate 18, blood pressure 126/63 and pulse ox 9 HEENT: Head normocephalic, atraumatic. Eyes: Extraocular muscles are intact. Pupils are equal,%. round and reactive to light and accommodation. Ears: No lesions. Nose appeared normal. Throat: No exudate or erythema. NECK: Supple. No JVD, no carotid bruit. No lymphadenopathy or thyromegaly. LUNGS: Decreased breath sounds but clear to auscultation. Percussion note normal. Chest symmetrical. HEART: S1, S2, no S3. No murmurs. No cyanosis or clubbing. No ascites. Pulses: Dorsalis pedis and posterior tibial pulses +1 to +2 bilaterally. ABDOMEN: Soft. Nontender. Bowel sounds active. No CVA tenderness. No mass felt. EXTREMITIES: No edema. Full range of motion of all extremities, equal. NEUROLOGIC: No focal deficit. Cranial nerves II through XII are grossly intact. No headache. No double vision. SKIN: Not dry. Intact. Turgor - normal. LYMPHATIC: No palpable lymph nodes/no lymphedema. MUSCULOSKELETAL: Normal joints with no swelling. Muscle tone is normal. LABS: Potassium was reported as 5.1, hgb 9.5, hct 29. PLAN: 1. Discontinue Potassium supplements 2. Continue Diltazem, Atenolol, Levothyroxine, Losartan and Pantoprazole. The patient's leg edema is much less tighter than before. CONDITION: Stable. TIME SPENT: More than 30 minutes. Plan and coordination of the patient's care discussed in the presence of nurse. FAUSTO
--- NOTE | 2021-03-27 11:46 | PN ---
DATE OF SERVICE: 03/25/21 SUBJECTIVE: 80-year-old white female hospitalized with vomiting, nausea, weight loss and weakness. The patient has esophagitis which seems to be resolving. Her appetite seems to be improving. The patient was given Lasix IV yesterday. She had a lot of urine output and her leg edema is a lot better. REVIEW OF SYSTEMS: CONSTITUTIONAL: No night sweats. No fatigue, malaise, lethargy. No fever or chills. HEENT: Eyes: No visual changes. No eye pain. No eye discharge. ENT: No runny nose. No epistaxis. No sinus pain. No sore throat. No odynophagia. No congestion. RESPIRATORY: No cough, no congestion. No hemoptysis. No shortness of breath. CARDIOVASCULAR: No angina symptoms. No CHF symptoms. No atypical chest pain for CAD. No palpitations. No PND. No orthopnea. GASTROINTESTINAL: Appetite seems to be improving. No abdominal pain. No nausea or vomiting. No diarrhea or constipation. No hematemesis. No hematochezia. GENITOURINARY: No urgency. No frequency. No dysuria. No hematuria. No obstructive symptoms. No discharge. No pain. No significant abnormal bleeding. MUSCULOSKELETAL: No musculoskeletal pain; no joint swelling. NEUROLOGICAL: No headache. No neck pain. No syncope. No seizures. No dizziness. PSYCHIATRIC: Not anxious. No depression. No suicidal thoughts. No homicidal thoughts. SKIN: No rash. No lesions. No wounds. ENDOCRINE: No unexplained weight loss. No weight gain. HEMATOLOGIC/LYMPHATIC: No anemia. No purpura. No petechiae. No prolonged or excessive bleeding. No palpable lymph nodes. PHYSICAL EXAMINATION: VITAL SIGNS: Temperature 98.3, pulse 68, respiratory rate 16, BP 120/60, pulse ox 91% on room air. HEENT: Head normocephalic, atraumatic. Eyes: Extraocular muscles are intact. Pupils are equal, round and reactive to light and accommodation. Ears: No lesions. Nose appeared normal. Throat: No exudate or erythema. NECK: Supple. No JVD, no carotid bruit. No lymphadenopathy or thyromegaly. LUNGS: Decreased breath sounds. Clear to auscultation. Percussion note normal. Chest symmetrical. HEART: S1, S2, no S3. Grade I to II/ systolic murmur No cyanosis or clubbing. No ascites. Pulses: Dorsalis pedis and posterior tibial pulses +1 to +2 bilaterally. ABDOMEN: Soft. Nontender. Bowel sounds active. No CVA tenderness. No mass felt. EXTREMITIES: +2 pitting edema with non pitting edema with pigmentation of both lower legs from chronic edema. Full range of motion of all extremities, equal. NEUROLOGIC: No focal deficit. Cranial nerves II through XII are grossly intact. No headache. No double vision. SKIN: Not dry. Intact. Turgor - normal. LYMPHATIC: No palpable lymph nodes/no lymphedema. MUSCULOSKELETAL: Normal joints with no swelling. Muscle tone is normal. LABS: Hemoglobin 8.6, hematocrit 27, WBC 13,000, normal differential. Creatinine 1.3, BUN 17, potassium 3.2. ASSESSMENT: 1. Acute gastroenteritis likely esophagitis seems to be the main problem. Diarrhea has subsided. 2. Dehydration seems to have subsided with improvement in kidney function. 3. Anemia, chronic. Hemoglobin 8.6, hematocrit 27, hemodilution with drop in hemoglobin. No evidence of active GI bleed. 4. Hypokalemia seems to be stable but resolving. Will increase the K-tab to 40 mEq t.i.d. and monitor the kidney functions and also lytes. PLAN: 1. The patient's legs have been elevated. 2. Advised to decrease the salt intake. 3. BMI is 33, advised to lose weight. Diet for weight loss discussed. TIME SPENT: More than 30 minutes. Plan and coordination of the patient's care discussed in the presence of nurse. FAUSTO
[2021-03-27] MEDS: ZOSYN 3.375 GM 3.375 GM in SODIUM CHLORIDE 50 ML IV SCH ×3 (12:55→23:58)
--- NOTE | 2021-03-27 13:21 | US ---
EXAM: Ultrasound venous Doppler bilateral lower extermity HISTORY: Lower extremity redness and swelling COMPARISON: 09/28/2013 TECHNIQUE: Venous duplex ultrasound of the bilateral lower extremity was performed using color, whittaker -scale, and Doppler flow imaging. FINDINGS: There is normal color flow and compression of the bilateral common femoral, greater saphen ous, profunda femoral, femoral, popliteal, peroneal, posterior tibial, and anterior tibial veins with out evidence of intraluminal thrombus. IMPRESSION: No evidence of DVT within the bilateral lower extremities.
[2021-03-27] MEDS: BACTROBAN TP SCH ×2 (14:50→21:01)
[2021-03-27] MEDS ORDERED: ZOFRAN TAB PO STA (17:08)
[2021-03-27] MEDS ORDERED: LIDOCAINE HCL 1% SDV ONE (19:06)
[2021-03-27 20:03] LABS: HEMATOCRIT 32.7 % (37.0-47.0); HEMOGLOBIN 10.5 g/dl (12.0-16.0)
[2021-03-27] MEDS: CARDIZEM CD PO SCH (20:58)
[2021-03-27] MEDS: PRAVACHOL PO SCH (20:58)
[2021-03-28] MEDS: ULTRAM PO PRN (03:55)
[2021-03-28 05:24] LABS: BASOPHILS # (AUTO) 0.1 K/uL (0-0.2); BASOPHILS % (AUTO) 0.5 % (0.0-3.0); EOSINOPHILS # (AUTO) 0.3 K/ul (0.0-0.7); EOSINOPHILS % (AUTO) 1.8 % (0.0-7.0); HEMATOCRIT 30.2 % (37.0-47.0); HEMOGLOBIN 9.8 g/dl (12.0-16.0); IMMATURE GRANULOCYTE # (AUTO) 0.1 (0.0-1.0); IMMATURE GRANULOCYTE % (AUTO) 0.6 % (0.0-5.0); LYMPHOCYTES # (AUTO) 0.6 K/uL (0.60-3.4); LYMPHOCYTES % (AUTO) 3.6 (10.0-50.0); MEAN CORPUSCULAR HEMOGLOBIN 28.6 pg (27.0-31.0); MEAN CORPUSCULAR HGB CONC 32.5 (31.8-35.4); MONOCYTES # (AUTO) 1.9 K/uL (0.4-2.0); NEUTROPHILS % (AUTO) 82.5 % (42.2-75.2); PLATELET COUNT 436 10^3/uL (140-440); RDW COEFFICIENT OF VARIATION 15.5 % (11.6-14.8); RED BLOOD COUNT 3.43 10^6/ul (4.20-5.40); WHITE BLOOD COUNT 16.91 K/ul (4.6-10.2)
[2021-03-28 05:42] LABS: ALANINE AMINOTRANSFERASE 7.2 U/L (0-35); ALBUMIN 2.98 g/dL (3.5-5.0); ALKALINE PHOSPHATASE 59.3 U/L (53-141); ASPARTATE AMINO TRANSFERASE 19.2 U/L (14-36); BILIRUBIN,TOTAL 0.66 mg/dL (0.2-1.3); BLOOD UREA NITROGEN 8.9 mg/dL (7-17); CALCIUM 8.47 mg/dL (8.4-10.2); CHLORIDE 102.9 mmol/L (98-107); GLUCOSE 95.9 mg/dL (74-106); POTASSIUM 3.79 mmol/L (3.5-5.1); SODIUM 133.4 mmol/L (134.5-145); TOTAL PROTEIN 5.99 g/dL (6.3-8.2)
[2021-03-28] MEDS: SYNTHROID PO SCH (05:45)
[2021-03-28] MEDS: ZOSYN 3.375 GM 3.375 GM in SODIUM CHLORIDE 50 ML IV SCH ×4 (05:45→23:12)
[2021-03-28] MEDS ORDERED: LASIX IVP ONE (08:45)
[2021-03-28] MEDS ORDERED: DECADRON IM ONE (08:45)
--- NOTE | 2021-03-28 09:32 | PCM.PROG ---
Attending Provider: ATTENDING PROVIDER: Dr. KASSIE MYERS This patient is seen with Tatiana Coronado, Nurse Practitioner. DATE OF SERVICE: 03/28/21 SUBJECTIVE: This 80 year old /WHITE F was hospitalized 03/23/21. The patient is resting comfortably in bed. Hemoglobin is better, She received blood y esterday. Leg edema and redness same. Kidney function back to normal. Pain and swelling left hand. She has been off Plaquenil and Prednisone. REVIEW OF SYSTEMS: CONSTITUTIONAL: No night sweats. No fatigue, malaise, lethargy. No fever or chills. HEENT: Eyes: No visual changes. No eye pain. No eye discharge. ENT: No runny nose. No epistaxis. No sinus pain. No odynophagia. No congestion. RESPIRATORY: No cough, no congestion. No hemoptysis. No shortness of breath. CARDIOVASCULAR: No angina symptoms. No CHF symptoms. No atypical chest pain for CAD. No palpitations. No orthopnea.. GASTROINTESTINAL: No abdominal pain. No nausea or vomiting. No diarrhea or constipation. No hematemesis. No hematochezia. GENITOURINARY: No urgency. No frequency. No dysuria. No hematuria. No obstructive symptoms. No discharge. No pain. No significant abnormal bleeding. MUSCULOSKELETAL: Left hand pain. Leg edema. No drainage from toe. NEUROLOGICAL: Awake, alert, oriented to time, place and person. No headache. No neck pain. No syncope. No seizures. No dizziness. PSYCHIATRIC: Not anxious. No depression. No suicidal thoughts. No homicidal thoughts. SKIN: No rash. Redness and edema bilateral lower extremities. Wound left great toe. ENDOCRINE: No unexplained weight loss. No weight gain. HEMATOLOGIC/LYMPHATIC: Anemia improved. No purpura. No petechiae. No prolonged or excessive bleeding. No palpable lymph nodes. PHYSICAL EXAMINATION: GENERAL: The patient is awake, alert and oriented, lying/sitting in bed in no distress. VITAL SIGNS: Temperature 98.2 F, Pulse 70, Respiratory Rate 20, BP 136/62, Pulse Ox 93% HEENT: Head normocephalic, atraumatic. Eyes: Extraocular muscles are intact. Pupils are equal, round and reactive to light and accommodation. Ears: No lesions. Nose appeared normal. Throat: No exudate or erythema. NECK: Supple. No JVD, no carotid bruit. No lymphadenopathy or thyromegaly. LUNGS: Diminished breath sounds. Clear to auscultation. Percussion note normal. Chest symmetrical. HEART: S1, S2, no S3. No murmurs. No cyanosis or clubbing. No ascites. Pulses: Dorsalis pedis and posterior tibial pulses +1 to +2 both sides. ABDOMEN: Soft. Non-tender. Bowel sounds active. No CVA tenderness. No mass felt. EXTREMITIES: Mild swelling left hand. 2+ bilateral lower extremity edema with redness. No drainage from left toe wound. Full range of motion of all extremities, equal. NEUROLOGIC: No focal deficit. Cranial nerves II through XII are grossly intact. No headache. No double vision. SKIN: Not dry. Intact. Turgor-normal. LYMPHATIC: No palpable lymph nodes/no lymphedema. MUSCULOSKELETAL: Normal joints with no swelling. Muscle tone is normal. LAB REVIEW: 03/28/21 04:59 03/28/21 04:59 03/28/21 04:59: Sodium 133.4 L, Potassium 3.79, Chloride 102.9, Carbon Dioxide 26.0, Anion Gap 8.29, BUN 8.9, Creatinine 1.00, Estimated GFR (MDRD) 53.00, BUN/Creatinine Ratio 8.90, Glucose 95.9, Calcium 8.47, Total Bilirubin 0.66, AST 19.2, ALT 7.2, Alkaline Phosphatase 59.3, Total Protein 5.99 L, Albumin 2.98 L, Globulin 3.01, Albumin/Globulin Ratio 0.99 03/28/21 04:59: WBC 16.91 H, RBC 3.43 L, Hgb 9.8 L, Hct 30.2 L, MCV 88.0, MCH 28.6, MCHC 32.5, RDW Coeff of Martha 15.5 H, Plt Count 436, Immature Gran % (Auto) 0.6, Neut % (Auto) 82.5 H, Lymph % (Auto) 3.6 L, [place] % (Auto) 11.0 H, Eos % (Auto) 1.8, Baso % (Auto) 0.5, Neut # (Auto) 14.0 H, Lymph # (Auto) 0.6, [place] # (Auto) 1.9, Eos # (Auto) 0.3, Baso # (Auto) 0.1, Immature Gran # (Auto) 0.1 03/27/21 20:00: Hgb 10.5 L, Hct 32.7 L D 03/27/21 09:10: Blood Type O POSITIVE, Antibody Screen Negative, Crossmatch (AHG) See Detail 03/27/21 08:34: Vancomycin Trough 12.592 ASSESSMENT: Please see below. 1. Anemia - improved. 2. Bilateral lower extremity cellulitis and edema. 3. Wound left great toe. 4. Left hand pain. PLAN: 1. Lasix 40 mg IV today and tomorrow 20 mg p.o. 2. X-ray left hand. 3. Uric acid level. 4. Decadron 1 cc. 5. Miralax. 6. Keep legs elevated. 7. Restart Plaquenil. 8. Restart potassium. 9. Dig level. 10. Appointment with wound care on . Plan and coordination of the patient's care discussed in the presence of Tool And Die Designer and nurse. CONDITION: Stable SCRIBED BY: DIAN SHEPHERD Core Inserter scribed while in presence of service performed by Dr. Myers/Tatiana Coronado APRN on 03/28/21 ([id number])
[2021-03-28] MEDS: LOTRISONE 45 GM TP PRN (09:56)
[2021-03-28] MEDS: BACTROBAN TP SCH ×2 (09:56→20:15)
[2021-03-28] MEDS: COZAAR PO SCH (09:57)
[2021-03-28] MEDS: K-DUR PO SCH (09:59)
[2021-03-28] MEDS: TENORMIN PO SCH (10:00)
[2021-03-28] MEDS: PROTONIX IV IVP SCH ×2 (10:00→20:30)
[2021-03-28] MEDS: VANCOMYCIN 1 GM in SODIUM CHLORIDE 250 ML IV SCH (10:01)
[2021-03-28] MEDS: MIRALAX PO SCH (10:40)
--- NOTE | 2021-03-28 13:59 | PN ---
DATE OF SERVICE: 03/27/2021 SUBJECTIVE: The patient was seen and examined with the Nurse Practitioner. The patient is running low grade fever. We will do an echocardiogram tomorrow. Kidney function is stable. Oral intake is questionable. Esophagitis is being treated with proton pump inhibitor. Continue to give the patient Vancomycin. She has an appointment with Wound Care today which we will move it to the . Chest venous scan to rule out DVT. Hgb and hct has dropped to 8.2. The patient is symptomatic with anemia with shortness of breath, poor appetite and failure to thrive. We will give one unit of packed red cells. The patient is being followed by hematology/oncologist. She has chronic anemia. Likely myelodysplastic syndrome. 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 The patient is more or less sedentary, obese with dependent bilateral leg edema. TIME SPENT: More than 30 minutes. Plan and coordination of the patient's care discussed in the presence of nurse. FAUSTO
--- NOTE | 2021-03-28 14:51 | DI ---
EXAM: Radiographs, left hand HISTORY: Left hand pain and swelling. COMPARISON: None. TECHNIQUE: Three views. FINDINGS: Bone mineralization is decreased. There is no fracture or dislocation. Severe joint spac e narrowing and spurring at the first carpal metacarpal joint. Mild changes seen elsewhere. Chondro calcinosis of the triangular fibrocartilage. No focal soft tissue abnormality is seen. 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
[2021-03-28] MEDS: CARDIZEM CD PO SCH (20:14)
[2021-03-28] MEDS: PRAVACHOL PO SCH (20:14)
[2021-03-29 05:39] LABS: BASOPHILS % (AUTO) 0.2 % (0.0-3.0); EOSINOPHILS % (AUTO) 0.2 % (0.0-7.0); HEMATOCRIT 31.3 % (37.0-47.0); IMMATURE GRANULOCYTE # (AUTO) 0.1 (0.0-1.0); IMMATURE GRANULOCYTE % (AUTO) 0.7 % (0.0-5.0); LYMPHOCYTES # (AUTO) 0.6 K/uL (0.60-3.4); LYMPHOCYTES % (AUTO) 4.8 (10.0-50.0); MEAN CORPUSCULAR HEMOGLOBIN 27.9 pg (27.0-31.0); MEAN CORPUSCULAR HGB CONC 31.9 (31.8-35.4); MEAN CORPUSCULAR VOLUME 87.2 fl (81.0-99.0); MONOCYTES % (AUTO) 7.3 (0-10); NEUTROPHILS # (AUTO) 11.2 K/ul (2.0-6.9); NEUTROPHILS % (AUTO) 86.8 % (42.2-75.2); PLATELET COUNT 439 10^3/uL (140-440); RDW COEFFICIENT OF VARIATION 14.8 % (11.6-14.8); RED BLOOD COUNT 3.59 10^6/ul (4.20-5.40); WHITE BLOOD COUNT 12.94 K/ul (4.6-10.2)
[2021-03-29] MEDS: LASIX TAB PO SCH (05:51)
[2021-03-29] MEDS: ZOSYN 3.375 GM 3.375 GM in SODIUM CHLORIDE 50 ML IV SCH ×3 (05:51→20:26)
[2021-03-29] MEDS: SYNTHROID PO SCH (05:51)
[2021-03-29 05:52] LABS: ALANINE AMINOTRANSFERASE 9.3 U/L (0-35); ALBUMIN 3.3 g/dL (3.5-5.0); ALKALINE PHOSPHATASE 62.2 U/L (53-141); ASPARTATE AMINO TRANSFERASE 23.7 U/L (14-36); BILIRUBIN,TOTAL 0.39 mg/dL (0.2-1.3); BLOOD UREA NITROGEN 11.9 mg/dL (7-17); CALCIUM 8.91 mg/dL (8.4-10.2); CARBON DIOXIDE 27.5 mmol/L (22-30.0); CHLORIDE 101.5 mmol/L (98-107); CREATININE 1.06 mg/dL (0.60-1.30); GLUCOSE 137.2 mg/dL (74-106); POTASSIUM 4.03 mmol/L (3.5-5.1); TOTAL PROTEIN 6.39 g/dL (6.3-8.2)
[2021-03-29] MEDS: PROTONIX IV IVP SCH ×2 (08:52→21:33)
[2021-03-29] MEDS: K-DUR PO SCH (08:52)
[2021-03-29] MEDS: TENORMIN PO SCH (08:52)
[2021-03-29] MEDS: LOTRISONE 45 GM TP PRN (08:52)
[2021-03-29] MEDS: COZAAR PO SCH (08:52)
[2021-03-29] MEDS: BACTROBAN TP SCH ×2 (08:55→20:42)
[2021-03-29] MEDS: MIRALAX PO SCH (08:56)
[2021-03-29] MEDS: VANCOMYCIN 1 GM in SODIUM CHLORIDE 250 ML IV SCH (11:55)
[2021-03-29] MEDS: CARDIZEM CD PO SCH (20:25)
[2021-03-29] MEDS: PRAVACHOL PO SCH (20:26)
[2021-03-30] MEDS: ZOSYN 3.375 GM 3.375 GM in SODIUM CHLORIDE 50 ML IV SCH ×2 (01:18→07:09)
[2021-03-30 05:26] VITALS: BP 111/58; TEMP 97.4
[2021-03-30] MEDS: SYNTHROID PO SCH (05:31)
[2021-03-30] MEDS: LASIX TAB PO SCH (05:31)
[2021-03-30 05:42] LABS: BASOPHILS # (AUTO) 0.1 K/uL (0-0.2); BASOPHILS % (AUTO) 0.4 % (0.0-3.0); EOSINOPHILS % (AUTO) 0.1 % (0.0-7.0); HEMATOCRIT 29.1 % (37.0-47.0); HEMOGLOBIN 9.5 g/dl (12.0-16.0); IMMATURE GRANULOCYTE # (AUTO) 0.1 (0.0-1.0); IMMATURE GRANULOCYTE % (AUTO) 0.6 % (0.0-5.0); LYMPHOCYTES # (AUTO) 0.9 K/uL (0.60-3.4); LYMPHOCYTES % (AUTO) 5.6 (10.0-50.0); MEAN CORPUSCULAR HEMOGLOBIN 28.6 pg (27.0-31.0); MEAN CORPUSCULAR HGB CONC 32.6 (31.8-35.4); MEAN CORPUSCULAR VOLUME 87.7 fl (81.0-99.0); MONOCYTES # (AUTO) 1.4 K/uL (0.4-2.0); MONOCYTES % (AUTO) 8.9 (0-10); NEUTROPHILS # (AUTO) 13.4 K/ul (2.0-6.9); NEUTROPHILS % (AUTO) 84.4 % (42.2-75.2); PLATELET COUNT 489 10^3/uL (140-440); RDW COEFFICIENT OF VARIATION 14.9 % (11.6-14.8); RED BLOOD COUNT 3.32 10^6/ul (4.20-5.40); WHITE BLOOD COUNT 15.83 K/ul (4.6-10.2)
[2021-03-30 05:52] LABS: ALANINE AMINOTRANSFERASE 8.5 U/L (0-35); ALBUMIN 3.15 g/dL (3.5-5.0); ASPARTATE AMINO TRANSFERASE 23.4 U/L (14-36); BILIRUBIN,TOTAL 0.3 mg/dL (0.2-1.3); BLOOD UREA NITROGEN 12.8 mg/dL (7-17); CALCIUM 8.93 mg/dL (8.4-10.2); CARBON DIOXIDE 26.7 mmol/L (22-30.0); CHLORIDE 104.3 mmol/L (98-107); CREATININE 1.05 mg/dL (0.60-1.30); GLUCOSE 98.9 mg/dL (74-106); POTASSIUM 3.63 mmol/L (3.5-5.1); TOTAL PROTEIN 6.16 g/dL (6.3-8.2)
[2021-03-30] MEDS ORDERED: LOMOTIL PO ONE (08:20)
[2021-03-30] MEDS: TENORMIN PO SCH (09:03)
[2021-03-30] MEDS: PROTONIX IV IVP SCH (09:03)
[2021-03-30] MEDS: COZAAR PO SCH (09:03)
[2021-03-30] MEDS: VANCOMYCIN 1 GM in SODIUM CHLORIDE 250 ML IV SCH (09:03)
[2021-03-30] MEDS: K-DUR PO SCH (09:03)
[2021-03-30] MEDS: BACTROBAN TP SCH (09:10)
[2021-03-30] MEDS: MIRALAX PO SCH (09:11)
--- NOTE | 2021-03-30 09:28 | PCM.PROG ---
Attending Provider: ATTENDING PROVIDER: Dr. KASSIE SZYMANSKI This patient is seen with Tatiana Coronado, Nurse Practitioner. DATE OF SERVICE: 03/30/21 SUBJECTIVE: This 80 year old /WHITE F was hospitalized 03/23/21. The patient is resting comfortably. She has an appointment with Wound Care this afternoon. She had two loose stools yesterday. Redness in leg has significantly improved. Leg edema has improved. Wound culture from Wound Care was negative. REVIEW OF SYSTEMS: CONSTITUTIONAL: No night sweats. No fatigue, malaise, lethargy. No fever or chills. HEENT: Eyes: No visual changes. No eye pain. No eye discharge. ENT: No runny nose. No epistaxis. No sinus pain. No odynophagia. No congestion. RESPIRATORY: No cough, no congestion. No hemoptysis. No shortness of breath. CARDIOVASCULAR: No angina symptoms. No CHF symptoms. No atypical chest pain for CAD. No palpitations. No orthopnea.. GASTROINTESTINAL: No abdominal pain. No nausea or vomiting. No diarrhea or constipation. No hematemesis. No hematochezia. GENITOURINARY: No urgency. No frequency. No dysuria. No hematuria. No obstructive symptoms. No discharge. No pain. No significant abnormal bleeding. MUSCULOSKELETAL: No musculoskeletal pain; no joint swelling. Lower leg edema. NEUROLOGICAL: Awake, alert, oriented to time, place and person. No headache. No neck pain. No syncope. No seizures. No dizziness. PSYCHIATRIC: Not anxious. No depression. No suicidal thoughts. No homicidal thoughts. SKIN: No rash. No lesions. No wounds. ENDOCRINE: No unexplained weight loss. No weight gain. HEMATOLOGIC/LYMPHATIC: Anemia. No purpura. No petechiae. No prolonged or excessive bleeding. No palpable lymph nodes. PHYSICAL EXAMINATION: GENERAL: The patient is awake, alert and oriented, lying in bed in no distress. VITAL SIGNS: Temperature 97.4 F, Pulse 63, Respiratory Rate 18, BP 111/58, Pulse Ox 96% HEENT: Head normocephalic, atraumatic. Eyes: Extraocular muscles are intact. Pupils are equal, round and reactive to light and accommodation. Ears: No lesions. Nose appeared normal. Throat: No exudate or erythema. NECK: Supple. No JVD, no carotid bruit. No lymphadenopathy or thyromegaly. LUNGS: Diminished breath sounds. Clear to auscultation. Percussion note normal. Chest symmetrical. HEART: S1, S2, no S3. No murmurs. No cyanosis or clubbing. No ascites. Pulses: Dorsalis pedis and posterior tibial pulses +1 to +2 both sides. ABDOMEN: Soft. Non-tender. Bowel sounds active. No CVA tenderness. No mass felt. EXTREMITIES: Trace bilateral lower extremity edema. No redness. Full range of motion of all extremities, equal. NEUROLOGIC: No focal deficit. Cranial nerves II through XII are grossly intact. No headache. No double vision. SKIN: Not dry. Intact. Turgor-normal. LYMPHATIC: No palpable lymph nodes/no lymphedema. MUSCULOSKELETAL: Normal joints with no swelling. Muscle tone is normal. LAB REVIEW: 03/30/21 05:28 03/30/21 05:28 03/30/21 05:28: Sodium 137.0, Potassium 3.63, Chloride 104.3, Carbon Dioxide 26.7, Anion Gap 9.63, BUN 12.8, Creatinine 1.05, Estimated GFR (MDRD) 51.00, BUN/Creatinine Ratio 12.19, Glucose 98.9, Calcium 8.93, Total Bilirubin 0.30, AST 23.4, ALT 8.5, Alkaline Phosphatase 55.0, Total Protein 6.16 L, Albumin 3.15 L, Globulin 3.01, Albumin/Globulin Ratio 1.04 03/30/21 05:28: WBC 15.83 H, RBC 3.32 L, Hgb 9.5 L, Hct 29.1 L, MCV 87.7, MCH 28.6, MCHC 32.6, RDW Coeff of Martha 14.9 H, Plt Count 489 H, Immature Gran % (Auto) 0.6, Neut % (Auto) 84.4 H, Lymph % (Auto) 5.6 L, Casey % (Auto) 8.9, Eos % (Auto) 0.1, Baso % (Auto) 0.4, Neut # (Auto) 13.4 H, Lymph # (Auto) 0.9, Casey # (Auto) 1.4, Eos # (Auto) 0.0, Baso # (Auto) 0.1, Immature Gran # (Auto) 0.1 ASSESSMENT: Please see below. 1. Acute gastroenteritis, resolved 2. Chronic anemia 3. Bilateral lower extremity cellulitis, improved 4. Wound left great toe. PLAN: 1. Discharge home 2. Followup with Wound Care today 3. Florastor BID for 30 days 4. Continue Protonix 40mg daily for 30 days 5. Resume Digoxin at home 6. Continue Lasix 20mg daily 7. She has Prednisone 5mg QOD from Dr. Goncalves 8. Augmentin 500/125mg BID for 7 days. Plan and coordination of the patient's care discussed in the presence of Automobile Service Station Attendant and nurse. SCRIBED BY: Blair SHEPHERD scribed while in presence of service performed by Dr. Szymanski/Tatiana Coronado APRN on 03/30/21 ([id number])
--- NOTE | 2021-03-30 10:25 | CM.DICTOOL ---
ADMISSION: 03/23/21 17:23 DISCHARGE: MARCH 30, 2021 DATE OF SERVICE: 03/30/21 FINAL DIAGNOSIS ANEMIA- IMPROVED BILATERAL LOWER EXTREMITY CELLULITIS AND EDEMA WOUND LEFT GREAT TOE WITH POSSIBLE OSTEOMYELITIS LEFT HAND PAIN AND SWELLING ACUTE GASTRITIS - RESOLVED HX: WOUND OF LEFT FOOT. SEES DR. LANZA ( POSSIBLE OSTEOMYELITIS ) LEFT THYROID NODULE- HAD NEGATIVE BIOPSY FROM DR. CAI VITAMIN D DEFICIENCY COMPRESSION FRACTURE L4-T7-T10 CHRONIC COUGH DISTENSION OF ESOPHAGUS WITH HISTORY OF ESOPHAGEAL VARICES- SHE SEES DR. WINSTON ALONG WITH DR. GABE WINSTON IS AT [facility]. LAST ENDO WAS 08/21 OBESITY POLYNEUROPATHY ANXIETY PALPITATIONS STASIS DERMATITIS PERIPHERAL VASCULAR DISEASE, SEES DR. GEORGE HISTORY OF TINEA CAPITIS HISTORY OF SVT LEFT HIP PAIN HISTORY OF GI BLEED IRON DEFICIENCY ANEMIA, SEES DR. PEREZ ATHEROSCLEROTIC HEART DISEASE PER CT CREST SYNDROME CHRONIC ANEMIA LEUKOCYTOSIS CAROTID STENOSIS- SEES DR. 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 SURGICAL HISTORY: CARPAL TUNNEL ESOPHAGEAL DILATATION LEFT KNEE REPLACEMENT IN 2005 CODE STATUS: DO NOT INTUBATE, CPR ONLY LAST VITALS Temp Pulse Resp BP Pulse Ox 97.4 F L 63 18 111/58 L 96 03/30/21 05:25 03/30/21 05:25 03/30/21 05:25 03/30/21 05:25 03/30/21 05:25 TAKE THESE MEDICATIONS AT HOME Atenolol (Atenolol 50 Mg Tablet) 50 mg PO DAILY [facility] Last Admin: 03/29/21 08:52 Dose: 50 mg Documented by: Clotrimazole (Clotrimazole/Betamethasone 45 Gm Cream) 1 applic TP BID PRN PRN Reason: Mild Pain Last Admin: 03/29/21 08:52 Dose: 1 applic Documented by: Diltiazem HCl (Diltiazem Hcl 180 Mg Cap.Er.24h) 180 mg PO BEDTIME [facility] Last Admin: 03/29/21 20:25 Dose: 180 mg Documented by: Furosemide (Furosemide 20 Mg Tablet) 20 mg PO QDAC [facility] Last Admin: 03/30/21 05:31 Dose: 20 mg Documented by: Levothyroxine Sodium (Levothyroxine Sodium 100 Mcg Tablet) 100 mcg PO DAILY@0630 [facility] Last Admin: 03/30/21 05:31 Dose: 100 mcg Documented by: Losartan Potassium (Losartan Potassium 25 Mg Tablet) 50 mg PO DAILY [facility] Last Admin: 03/29/21 08:52 Dose: 50 mg Documented by: Pantoprazole Sodium (Pantoprazole Sodium 40 Mg Vial) 40 mg PO DAILY X 30 DAYS [facility] Last Admin: 03/29/21 21:33 Dose: 40 mg Documented by: Potassium Chloride (Potassium Chloride 20 Meq Tab) 20 meq PO DAILYWM [facility] Last Admin: 03/29/21 08:52 Dose: 20 meq Documented by: Pravastatin Sodium (Pravastatin Sodium 40 Mg Tablet) 80 mg PO BEDTIME [facility] Last Admin: 03/29/21 20:26 Dose: 80 mg Documented by: Tramadol HCl (Tramadol Hcl 50 Mg Tablet) 50 mg PO DAILY PRN PRN Reason: Mild Pain Last Admin: 03/28/21 03:55 Dose: 50 mg Documented by: METHYLCELLULOSE FIBER THERAPY 500 MG PO DAILY PRN MAGNESIUM OXIDE 400 MG PO DAILY FEXOFENADINE ( CAMACHO ) 180 MG PO BEDTIME PRN FENOFIBRATE NANOCRYSTALLIZED 145 MG PO DAILY DIGOXIN 125 MCG PO DAILY SUCRALFATE 1 GRAM PO BID PREDNISONE 5 MG PO DAILY PRN FLORASTOR 250 MG PO BID X 30 DAYS AGUMENTIN 500/125 MG PO BID WITH FOOD X 7 DAYS ( START AFTER WOUND CARE APPOINTMENT) TYLENOL 650 MG PO Q 4 HRS PRN ALLERGIES Sulfa (Sulfonamide Antibiotics) Adverse Reaction (Mild, Verified 03/23/21 14:23) DISCONTINUED MEDICATIONS LASIX 40 MG PO DAILY L ACIDOPH, PARACASEL, B. LACTIS NEW PRESCRIPTIONS: AUGMENTIN 500/125 MG PO WITH FOOD X 7 DAYS ( FILL AFTER WOUND CARE APPOINTMENT) FLORASTOR 250 MG PO BID X 30 DAYS PREDNISONE 5 MG PO DAILY WITH FOOD PRN PROTONIX 40 MG PO DAILY X 30 DAYS LASIX 20 MG PO DAILY TYLENOL 650 MG PO Q 4 HOURS PRN SMOKING: N/A DISEASE SPECIFIC EDUCATION: WOUND CARE SKIN CARE DAILY WEIGHTS EDEMA CARE ACTIVITY PRECAUTIONS COVID PRECAUTIONS LAB REVIEW: 03/30/21 05:28 03/30/21 05:28 03/30/21 05:28: Sodium 137.0, Potassium 3.63, Chloride 104.3, Carbon Dioxide 26.7, Anion Gap 9.63, BUN 12.8, Creatinine 1.05, Estimated GFR (MDRD) 51.00, BUN/Creatinine Ratio 12.19, Glucose 98.9, Calcium 8.93, Total Bilirubin 0.30, AST 23.4, ALT 8.5, Alkaline Phosphatase 55.0, Total Protein 6.16 L, Albumin 3.15 L, Globulin 3.01, Albumin/Globulin Ratio 1.04 03/30/21 05:28: WBC 15.83 H, RBC 3.32 L, Hgb 9.5 L, Hct 29.1 L, MCV 87.7, MCH 28.6, MCHC 32.6, RDW Coeff of Martha 14.9 H, Plt Count 489 H, Immature Gran % (Auto) 0.6, Neut % (Auto) 84.4 H, Lymph % (Auto) 5.6 L, [place] % (Auto) 8.9, Eos % (Auto) 0.1, Baso % (Auto) 0.4, Neut # (Auto) 13.4 H, Lymph # (Auto) 0.9, [place] # (Auto) 1.4, Eos # (Auto) 0.0, Baso # (Auto) 0.1, Immature Gran # (Auto) 0.1 PLAN: DISCHARGE: RETURN HOME WITH SPOUSE ACTIVITY: UP WITH SMALL BASE QUAD CANE, MINIMAL WALKING ON LT FOOT WOUND NO STRENUOUS ACTIVITY. STAY INDOORS DURING HOT WEATHER ELEVATE LOWER EXTREMITIES WHEN NOT WALKING PANDEMIC PRECAUTIONS DIET: SOFT BITE SIZE, NO SPICES, LOW CAFFEINE ENSURE SUPPLEMENT 240 ML TWICE DAILY MD FOLLOW UP: -DR. MYERS/ SUMA DUMONT APRN/ MILAGROS HICKS APRN TO SEE IN THE OFFICE ON, SATURDAY, April @ 245 PM -[facility], 03/30/21 @ 245 PM -[facility] SCHEDULED [facility] [place]( PATIENT HAS BEEN THERE BEFORE FOR IRON INFUSIONS), PER JD AT [facility], TO START APRIL 04, 2021 @ 1030 LT FOOT WOUND: FOLLOW UP WITH [facility] THIS AFTERNOON FOR FURTHER ORDERS, LEAVE DRESSING ON UNTIL THEN. CODE STATUS: DO NOT INTUBATE, CPR ONLY MRS PARKS IS UP WITH ASSIST OF 1 SBA AND SMALL BASE QUAD CANE. SHE REMAINS ALERT AND ORIENTED X 4. SHE IS PLEASANT. DENIES ANY ACUTE DISTRESS. BREATHING IS WNL. IMPROVED SWELLING AND REDNESS/STAINING TO LOWER LEGS. SWELLING AND DISCOMFORT TO HANDS IMPROVED. SHE IS CONTINENT OF BOWEL AND BLADDER. LOOSE STOOLS LAST TWO DAYS, HAD STARTED TO FIRM UP AND THEN LOOSE AGAIN THIS AM. LOMOTIL 2.5 MG GIVEN AND GOING HOME WITH FLORASTOR BID X 30 DAYS. NUTRITIONAL INTAKE SLIGHTLY IMPROVED WITH 50% AVERAGE INTAKE, ADEQUATE FLUIDS. SHE LIVES WITH HER SPOUSE. SHE HAS BEEN SEEING [facility] AND NEXT F/U THIS AFTERNOON RELATED TO LT PLANTER FOOT WOUND. MD SUMA ROSAS APRN ALYCE HANNAN, APRN
--- NOTE | 2021-03-30 13:36 | PN ---
DATE OF SERVICE: 03/28/2021 SUBJECTIVE: The patient was seen and examined with the Nurse Practitioner. The patient's condition is stable. Hgb and hct is stable. No evidence of active GI bleed. The patient is practically afebrile. Somewhat better the edema is practically resolved with some nonpitting edema with long standing dependant edema the patient has for number of years. The patient is on Vancomycin. The patient is going to be discharged to be followed by Wound Care. 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 TIME SPENT: More than 30 minutes. Plan and coordination of the patient's care discussed in the presence of nurse. FAUSTO
--- NOTE | 2021-03-30 14:12 | PN ---
DATE OF SERVICE: 03/29/2021 SUBJECTIVE: 80 year old white female hospitalized with nausea, vomiting and kidney failure. The patient's kidney functions are back to normal with GFR more than 50. Esophagitis seems to have resolved. Appetite has improved. The patient is afebrile. REVIEW OF SYSTEMS: CONSTITUTIONAL: No night sweats. No fatigue, malaise, lethargy. No fever or chills. HEENT: Eyes: No visual changes. No eye pain. No eye discharge. ENT: No runny nose. No epistaxis. No sinus pain. No sore throat. No odynophagia. No congestion. RESPIRATORY: No cough, no congestion. No hemoptysis. No shortness of breath. CARDIOVASCULAR: No angina symptoms. No CHF symptoms. No atypical chest pain for CAD. No palpitations. No PND. No orthopnea. GASTROINTESTINAL: No abdominal pain. No nausea or vomiting. No diarrhea or constipation. No hematemesis. No hematochezia. GENITOURINARY: No urgency. No frequency. No dysuria. No hematuria. No obstructive symptoms. No discharge. No pain. No significant abnormal bleeding. MUSCULOSKELETAL: No musculoskeletal pain; no joint swelling. NEUROLOGICAL: No headache. No neck pain. No syncope. No seizures. No dizziness. PSYCHIATRIC: Not anxious. No depression. No suicidal thoughts. No homicidal thoughts. SKIN: No rash. No lesions. No wounds. ENDOCRINE: No unexplained weight loss. No weight gain. HEMATOLOGIC/LYMPHATIC: No anemia. No purpura. No petechiae. No prolonged or excessive bleeding. No palpable lymph nodes. PHYSICAL EXAMINATION: VITAL SIGNS: Temperature 97.5, pulse 59, respiratory rate 16, blood pressure 127/60 and pulse ox 96% on room air. HEENT: Head normocephalic, atraumatic. Eyes: Extraocular muscles are intact. Pupils are equal, round and reactive to light and accommodation. Ears: No lesions. Nose appeared normal. Throat: No exudate or erythema. NECK: Supple. No JVD, no carotid bruit. No lymphadenopathy or thyromegaly. LUNGS: Decreased breath sounds but clear to auscultation. Percussion note normal. Chest symmetrical. HEART: S1, S2, no S3. No murmurs. No cyanosis or clubbing. No ascites. Pulses: Dorsalis pedis and posterior tibial pulses +1 to +2 bilaterally. ABDOMEN: Soft. Nontender. Bowel sounds active. No CVA tenderness. No mass felt. EXTREMITIES: No edema. Full range of motion of all extremities, equal. NEUROLOGIC: No focal deficit. Cranial nerves II through XII are grossly intact. No headache. No double vision. SKIN: Not dry. Intact. Turgor - normal. LYMPHATIC: No palpable lymph nodes/no lymphedema. MUSCULOSKELETAL: Normal joints with no swelling. Muscle tone is normal. LABS: hgb 10, hct 31, WBC 12,900 normal differential, creatinine 1, BUN 12, potassium 4. COVID negative. Echocardiogram done today showed hypokinetic septal motion which could be from bundle branch block type of pattern. Ejection fraction 35- 40%. LA cavity is mildly enlarged. The patient has moderate tricuspid regurgitation and mitral regurgitation. ASSESSMENT: 1. Renal failure has resolved 2. Nausea and vomiting has subsided 3. Esophagitis seems to be under control. 4. The patient is followed by Wound Care with possibilities of osteomyelitis. She is on Vancomycin 5. 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 The patient is going to be seen by Wound Care tomorrow after her discharge. CONDITION: Stable. TIME SPENT: More than 30 minutes. Plan and coordination of the patient's care discussed in the presence of nurse. FAUSTO
--- NOTE | 2021-03-31 10:37 | ECHO2D ---
Date of Exam: 03/29/2021 Ordering Physician: DR. KASSIE MYERS Room #: 105 Reason for Echo: SOB, HX CAROTID STENOSIS, HX SVT, HX LBBB M-Mode Normal Adult Results LV Dimensions Normal Adult Results AoV Opening excursions >1.6 >1.6 LVEDD-base- 3.5-5.8 5.0 Ao root dimensions 2.0-3.7 3.0 LVESD-base- 3.1-4.6 L. Atrium dimensions 1.9-3.8 4.1 Post. Wall thickness 0.8-1.1 1.1 IV septum (thickness) 0.7-1.2 1.1 Post. Wall excursion 0.72-1.3 NORMAL Septal motion 0.4 Systolic motion R. Ventricular cavity 1.5-2.0 NORMAL LVEF 60% 35-40% Paradoxical septal wall motion NORMAL 2-D : MILDLY ENLARGED LEFT ATRIAL CAVITY, HYPOKINETIC SEPTAL WALL, VALVES- NORMAL, NO EFFUSION, NO THROMBUS COLOR FLOW: MODERATE MITRAL REGURGITATION, TRICUSPID REGURGITATION M-MODE: MV: NORMAL AV: NORMAL TV: NORMAL PV: NORMAL CHAMBER SIZE: ENLARGED LEFT ATRIAL CAVITY WALL MOTION: NORMAL PERICARDIUM: NORMAL INTERPRETATION: 1. MILDLY ENLARGED LEFT ATRIAL CAVITY 2. BORDERLINE LEFT VENTRICLE HYPERTROPHY 3. MODERATE MITRAL REGURGITATION AND TRICUSPID REGURGITATION 4. VALVES--NORMAL 5. HYPOKINETIC SEPTAL WALL EJECTION FRACTION 35-40% MTDD
--- NOTE | 2021-03-31 13:03 | DS ---
DATE OF SERVICE: 03/30/2021 FINAL DIAGNOSIS: ANEMIA- IMPROVED BILATERAL LOWER EXTREMITY CELLULITIS AND EDEMA WOUND LEFT GREAT TOE WITH POSSIBLE OSTEOMYELITIS LEFT HAND PAIN AND SWELLING ACUTE GASTRITIS - RESOLVED HISTORY: WOUND OF LEFT FOOT. SEES DR. LANZA ( POSSIBLE OSTEOMYELITIS ) LEFT THYROID NODULE- HAD NEGATIVE BIOPSY FROM DR. CAI VITAMIN D DEFICIENCY COMPRESSION FRACTURE L4-T7-T10 CHRONIC COUGH DISTENSION OF ESOPHAGUS WITH HISTORY OF ESOPHAGEAL VARICES- SHE SEES DR. WINSTON ALONG WITH DR. GABE WINSTON IS AT [facility]. LAST ENDO WAS 08/21 OBESITY POLYNEUROPATHY ANXIETY PALPITATIONS STASIS DERMATITIS PERIPHERAL VASCULAR DISEASE, SEES DR. GEORGE HISTORY OF TINEA CAPITIS HISTORY OF SVT LEFT HIP PAIN HISTORY OF GI BLEED IRON DEFICIENCY ANEMIA, SEES DR. PEREZ ATHEROSCLEROTIC HEART DISEASE PER CT CREST SYNDROME CHRONIC ANEMIA LEUKOCYTOSIS CAROTID STENOSIS- SEES DR. 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 MD FOLLOW UP: -DR. MYERS/ SUMA DUMONT APRN/ MILAGROS HICKS APRN TO SEE IN THE OFFICE ON, SATURDAY, April @ 245 PM. -[facility], 03/30/21 @ 245 PM. -[facility] IV INFUSIONS SCHEDULED AT THE [facility] IN [place] ( PATIENT HAS BEEN THERE BEFORE FOR IRON INFUSIONS), PER JD AT [facility], TO START APRIL 04, 2021 @ 1030. LT FOOT WOUND: FOLLOW UP WITH [facility]OUND [facility] THIS AFTERNOON FOR FURTHER ORDERS, LEAVE DRESSING ON UNTIL THEN. CODE STATUS: DO NOT INTUBATE, CPR ONLY TAKE THESE MEDICATIONS AT HOME: Atenolol (Atenolol 50 Mg Tablet) 50 mg PO DAILY CATHERINE Last Admin: 03/29/21 08:52 Dose: 50 mg Documented by: Clotrimazole (Clotrimazole/Betamethasone 45 Gm Cream) 1 applic TP BID PRN PRN Reason: Mild Pain Last Admin: 03/29/21 08:52 Dose: 1 applic Documented by: Diltiazem HCl (Diltiazem Hcl 180 Mg Cap.Er.24h) 180 mg PO BEDTIME [facility] Last Admin: 03/29/21 20:25 Dose: 180 mg Documented by: Furosemide (Furosemide 20 Mg Tablet) 20 mg PO QDAC [facility] Last Admin: 03/30/21 05:31 Dose: 20 mg Documented by: Levothyroxine Sodium (Levothyroxine Sodium 100 Mcg Tablet) 100 mcg PO DAILY@0630 [facility] Last Admin: 03/30/21 05:31 Dose: 100 mcg Documented by: Losartan Potassium (Losartan Potassium 25 Mg Tablet) 50 mg PO DAILY [facility] Last Admin: 03/29/21 08:52 Dose: 50 mg Documented by: Pantoprazole Sodium (Pantoprazole Sodium 40 Mg Vial) 40 mg PO DAILY X 30 DAYS [facility] Last Admin: 03/29/21 21:33 Dose: 40 mg Documented by: Potassium Chloride (Potassium Chloride 20 Meq Tab) 20 meq PO DAILYWM [facility] Last Admin: 03/29/21 08:52 Dose: 20 meq Documented by: Pravastatin Sodium (Pravastatin Sodium 40 Mg Tablet) 80 mg PO BEDTIME [facility] Last Admin: 03/29/21 20:26 Dose: 80 mg Documented by: Tramadol HCl (Tramadol Hcl 50 Mg Tablet) 50 mg PO DAILY PRN PRN Reason: Mild Pain Last Admin: 03/28/21 03:55 Dose: 50 mg Documented by: METHYLCELLULOSE FIBER THERAPY 500 MG PO DAILY PRN MAGNESIUM OXIDE 400 MG PO DAILY FEXOFENADINE ( CAMACHO ) 180 MG PO BEDTIME PRN FENOFIBRATE NANOCRYSTALLIZED 145 MG PO DAILY DIGOXIN 125 MCG PO DAILY SUCRALFATE 1 GRAM PO BID PREDNISONE 5 MG PO DAILY PRN FLORASTOR 250 MG PO BID X 30 DAYS AUGMENTIN 500/125 MG PO BID WITH FOOD X 7 DAYS ( START AFTER WOUND CARE APPOINTMENT) TYLENOL 650 MG PO Q 4 HRS PRN ALLERGIES: Sulfa (Sulfonamide Antibiotics) Adverse Reaction (Mild, Verified 03/23/21 14:23) DISCONTINUED MEDICATIONS: LASIX 40 MG PO DAILY L ACIDOPH, PARACASEL, B. LACTIS NEW PRESCRIPTIONS: AUGMENTIN 500/125 MG PO WITH FOOD X 7 DAYS ( FILL AFTER WOUND CARE APPOINTMENT) FLORASTOR 250 MG PO BID X 30 DAYS PREDNISONE 5 MG PO DAILY WITH FOOD PRN PROTONIX 40 MG PO DAILY X 30 DAYS LASIX 20 MG PO DAILY TYLENOL 650 MG PO Q 4 HOURS PRN SMOKING: N/A DISEASE SPECIFIC EDUCATION: WOUND CARE SKIN CARE DAILY WEIGHTS EDEMA CARE ACTIVITY PRECAUTIONS COVID PRECAUTIONS LAB REVIEW: 03/30/21 05:28 03/30/21 05:28 03/30/21 05:28: Sodium 137.0, Potassium 3.63, Chloride 104.3, Carbon Dioxide 26.7, Anion Gap 9.63, BUN 12.8, Creatinine 1.05, Estimated GFR (MDRD) 51.00, BUN/Creatinine Ratio 12.19, Glucose 98.9, Calcium 8.93, Total Bilirubin 0.30, AST 23.4, ALT 8.5, Alkaline Phosphatase 55.0, Total Protein 6.16 L, Albumin 3.15 L, Globulin 3.01, Albumin/Globulin Ratio 1.04 03/30/21 05:28: WBC 15.83 H, RBC 3.32 L, Hgb 9.5 L, Hct 29.1 L, MCV 87.7, MCH 28.6, MCHC 32.6, RDW Coeff of Martha 14.9 H, Plt Count 489 H, Immature Gran % (Auto) 0.6, Neut % (Auto) 84.4 H, Lymph % (Auto) 5.6 L, [place] % (Auto) 8.9, Eos % (Auto) 0.1, Baso % (Auto) 0.4, Neut # (Auto) 13.4 H, Lymph # (Auto) 0.9, [place] # (Auto) 1.4, Eos # (Auto) 0.0, Baso # (Auto) 0.1, Immature Gran # (Auto) 0.1 ACTIVITY: UP WITH SMALL BASE QUAD CANE, MINIMAL WALKING ON LT FOOT WOUND NO STRENUOUS ACTIVITY. STAY INDOORS DURING HOT WEATHER ELEVATE LOWER EXTREMITIES WHEN NOT WALKING PANDEMIC PRECAUTIONS DIET: SOFT BITE SIZE, NO SPICES, LOW CAFFEINE ENSURE SUPPLEMENT 240 ML TWICE DAILY HOSPITAL COURSE: 80 year old white female who was initially admitted with acute renal failure, dehydration, acute gastritis. She had had vomiting and nausea of several days. She was admitted and placed on normal saline IV at 100cc an hour. CT scan showed changes associated with gastritis. She does have a history of esophageal varices and regular endoscopies in [place]. The last one was just a few months ago. She had also been seeing Wound Care for possible osteomyelitis on the bottom of the left foot near the left great toe. She has a slight opening with scant drainage. They had cultured it prior to being admitted. We received the results why she was admitted and which was they were negative. However, Wound Care had recommended that she receive Dalvance as outpatient throughout them so subsequently we started her IV Vancomycin in place of Dalvance for the possible osteomyelitis however she had remained afebrile while she has been here and there has been no drainage from the wound. She did also when she came in had some lower extremity edema and redness indicating cellulitis. She does have chronic leg edema however it was worse after her kidney back down to normal and it is still normal with BUN of 12 and 1.05. She received IV Lasix for the leg edema. I started her on Zosyn on about her second day of admission due to the cellulitis in her lower extremities and today she has no redness, decreased edema and is feeling much better. She also has an appointment with Wound Care this afternoon. She did require one unit of blood as her hgb was down to 8.5 and she was very weak and short of breath. She does have a history of chronic anemia and sees Dr. Kota Collins. She will go home. Hgb is stable at 9.5. Cellulitis of lower extremities and edema has improved. Gastritis has resolved. She will followup with Wound Care for the possible osteomyelitis. TIME SPENT: More than 60 minutes. FAUSTO
--- NOTE | 2021-04-03 10:49 | PN ---
DATE OF SERVICE: 03/30/2021 SUBJECTIVE: The patient was seen and examined with the Nurse Practitioner. The patient's condition is stable. Her appetite has improved. Esophagitis seems to have resolved. No nausea and no vomiting. Kidney functions have improved. The patient is going to be discharged on antibiotics to be followed by Wound Care which patient is going to see today. Condition at the time of discharge is stable. The patient is going to be followed as an outpatient. TIME SPENT: More than 30 minutes. Plan and coordination of the patient's care discussed in the presence of nurse. FAUSTO
--- NOTE | 2021-04-03 10:57 | PN ---
03/23/2021: Level 5 03/24/2021: Intermediate 03/25/2021: Intermediate 03/25/2021: Intermediate 03/26/2021: Intermediate 03/27/2021: Intermediate 03/28/2021: Intermediate 03/29/2021: Intermediate 03/30/2021: D as in discharge MTDD
== END 2021-03-30 11:07 | disposition home or self-care (01) | DRG 392 ==
LOC: ED 13:39 → MEDSURG A 17:23
PROVIDERS: ADMIT Internal Medicine; ATTEND Internal Medicine
DX: Z20.822 Contact with and (suspected) exposure to COVID-19; R60.0 Localized edema; N17.9 Acute kidney failure, unspecified; L08.9 Local infection of the skin and subcutaneous tissue, unspecified; E87.6 Hypokalemia; S91.102A Unspecified open wound of left great toe without damage to nail, initial encounter; R19.7 Diarrhea, unspecified; M79.89 Other specified soft tissue disorders; D64.9 Anemia, unspecified; K20.90 Esophagitis, unspecified without bleeding; K29.00 Acute gastritis without bleeding; M34.1 CR(E)ST syndrome; R10.9 Unspecified abdominal pain; R11.2 Nausea with vomiting, unspecified; M79.642 Pain in left hand; E86.0 Dehydration; R53.81 Other malaise

== ENCOUNTER 2022-02-23 08:54 | Observation (INO) ==
[2022-02-23 09:18] LABS: BORDETELLA PARAPERTUSSIS (PCR) NOT DETECTED (NOT DETECT); BORDETELLA PERTUSSIS (PCR) NOT DETECTED (NOT DETECT); CHLAMYDIA PNEUMONIAE (PCR) NOT DETECTED (NOT DETECT); CORONAVIRUS 229E (PCR) NOT DETECTED (NOT DETECT); CORONAVIRUS HKU1 (PCR) NOT DETECTED (NOT DETECT); CORONAVIRUS NL63 (PCR) NOT DETECTED (NOT DETECT); CORONAVIRUS OC43 (PCR) NOT DETECTED (NOT DETECT); HUMAN METAPNEUMOVIRUS (PCR) NOT DETECTED (NOT DETECT); HUMAN RHINOVIRUS/ENTEROV (PCR) NOT DETECTED (NOT DETECT); INFLUENZA B (PCR) NOT DETECTED (NOT DETECT); MYCOPLASMA PNEUMONIAE (PCR) NOT DETECTED (NOT DETECT); PARAINFLUENZA VIRUS 1 (PCR) NOT DETECTED (NOT DETECT); PARAINFLUENZA VIRUS 2 (PCR) NOT DETECTED (NOT DETECT); PARAINFLUENZA VIRUS 3 (PCR) NOT DETECTED (NOT DETECT); PARAINFLUENZA VIRUS 4 (PCR) NOT DETECTED (NOT DETECT); RESPIRATORY SYNCYTIAL V (PCR) NOT DETECTED (NOT DETECT); SARS_COV_2 (PCR) NOT DETECTED (NOT DETECT)
[2022-02-23 10:07] LABS: ADENOVIRUS (PCR) NOT DETECTED (NOT DETECT)
[2022-02-23] MEDS ORDERED: TYLENOL PO PRN (11:00)
[2022-02-23] MEDS ORDERED: ATROPINE SULFATE PFS IVP PRN (11:00)
[2022-02-23] MEDS ORDERED: NITROSTAT SL PRN (11:00)
[2022-02-23 11:11] VITALS: BMI 28.3
[2022-02-23] MEDS ORDERED: PROTONIX IV IVP SCH (11:30)
[2022-02-23] MEDS ORDERED: MIRALAX PO PRN (11:44)
[2022-02-23] MEDS ORDERED: ZAROXOLYN PO PRN (11:44)
[2022-02-23 11:47] LABS: BASOPHILS # (AUTO) 0.1 K/uL (0-0.2); BASOPHILS % (AUTO) 0.7 % (0.0-3.0); EOSINOPHILS # (AUTO) 0.3 K/ul (0.0-0.7); EOSINOPHILS % (AUTO) 1.8 % (0.0-7.0); HEMATOCRIT 20.1 % (37.0-47.0); IMMATURE GRANULOCYTE # (AUTO) 0.1 (0.0-1.0); IMMATURE GRANULOCYTE % (AUTO) 0.7 % (0.0-5.0); LYMPHOCYTES # (AUTO) 0.6 K/uL (0.60-3.4); LYMPHOCYTES % (AUTO) 3.7 (10.0-50.0); MEAN CORPUSCULAR HEMOGLOBIN 22.8 pg (27.0-31.0); MEAN CORPUSCULAR HGB CONC 29.9 (31.8-35.4); MEAN CORPUSCULAR VOLUME 76.4 fl (81.0-99.0); MONOCYTES # (AUTO) 1.1 K/uL (0.4-2.0); MONOCYTES % (AUTO) 6.2 (0-10); NEUTROPHILS # (AUTO) 14.6 K/ul (2.0-6.9); NEUTROPHILS % (AUTO) 86.9 % (42.2-75.2); PLATELET COUNT 862 10^3/uL (140-440); RDW COEFFICIENT OF VARIATION 19.9 % (11.6-14.8); RED BLOOD COUNT 2.63 10^6/ul (4.20-5.40); WHITE BLOOD COUNT 16.83 K/ul (4.6-10.2)
[2022-02-23 12:01] LABS: ALANINE AMINOTRANSFERASE 10.2 U/L (0-35); ALBUMIN 3.56 g/dL (3.5-5.0); ALKALINE PHOSPHATASE 53.5 U/L (53-141); ASPARTATE AMINO TRANSFERASE 34.5 U/L (14-36); BILIRUBIN,TOTAL 0.22 mg/dL (0.2-1.3); BLOOD UREA NITROGEN 53.1 mg/dL (7-17); CALCIUM 10.23 mg/dL (8.4-10.2); CARBON DIOXIDE 29.2 mmol/L (22-30.0); CHLORIDE 96.1 mmol/L (98-107); CREATININE 1.76 mg/dL (0.60-1.30); GLUCOSE 105.8 mg/dL (74-106); MAGNESIUM 1.91 mg/dL (1.6-2.3); PHOSPHORUS 3.2 mg/dL (2.5-4.5); POTASSIUM 4.38 mmol/L (3.5-5.1); SODIUM 132.7 mmol/L (134.5-145); TOTAL PROTEIN 7.21 g/dL (6.3-8.2); URIC ACID 5.24 mg/dL (2.5-6.2)
[2022-02-23 12:14] LABS: CREATINE KINASE < 20.0 U/L (30-135); TROPONIN I < 0.012 ng/ml (0.0000-0.120)
[2022-02-23 13:12] LABS: BILIRUBIN,URINE Negative (NEGATIVE); CLARITY,URINE Clear (CLEAR); COLOR,URINE Yellow (YELLOW); GLUCOSE, URINE (UA) Negative (NEGATIVE); KETONES,URINE Negative (NEGATIVE); LEUKOCYTE ESTERASE ,URINE Negative (NEGATIVE); NITRITE,URINE Negative (NEGATIVE); PROTEIN,URINE Negative (NEGATIVE); URINE, BLOOD Negative (NEGATIVE); UROBILINOGEN,URINE 0.2 (0.2)
--- NOTE | 2022-02-23 13:14 | DI ---
EXAM: CHEST RADIOGRAPH (1 VIEW) TECHNIQUE: Frontal Chest Radiograph. HISTORY: Shortness of breath COMPARISON: 02/01/2022 FINDINGS: Lines, Tubes, Devices: None Lungs and Pleura: No focal consolidation. No pleural effusion. No pneumothorax. No pulmonary edema . Cardiomediastinum: Stable cardiomediastinal silhouette. Moderate aortic calcifications. Bones/Soft Tissues: No acute osseous abnormality. No soft tissue abnormality. Upper Abdomen: Within normal limits. IMPRESSION: No acute radiographic abnormality.
[2022-02-23] MEDS ORDERED: DECADRON IVP ONE (13:53)
[2022-02-23 14:59] LABS: HEMATOCRIT 19.9 % (37.0-47.0)
[2022-02-23 15:01] LABS: HEMOGLOBIN 5.9 g/dl (12.0-16.0)
[2022-02-23 15:02] VITALS: BP 125/51; TEMP 97.6
[2022-02-23] MEDS ORDERED: CARAFATE PO SCH (17:00)
[2022-02-23] MEDS ORDERED: PRAVACHOL PO SCH (21:00)
[2022-02-23] MEDS ORDERED: ULTRAM PO SCH (21:00)
[2022-02-23] MEDS ORDERED: CARDIZEM CD PO SCH (21:00)
[2022-02-23] MEDS ORDERED: NEURONTIN PO SCH (21:00)
[2022-02-24 06:12] LABS: URINE CREATININE 17.3 mg/dL (Not Estab.); URINE TOTAL PROTEIN 7.7 mg/dL (Not Estab.)
[2022-02-24] MEDS ORDERED: SYNTHROID PO SCH (06:30)
[2022-02-24] MEDS ORDERED: LASIX TAB PO SCH (06:30)
[2022-02-24] MEDS ORDERED: K-DUR PO SCH (08:30)
[2022-02-24] MEDS ORDERED: PREDNISONE PO SCH (08:30)
[2022-02-24] MEDS ORDERED: VITAMIN C PO SCH (09:00)
[2022-02-24] MEDS ORDERED: MAGNESIUM OXIDE 400 MG PO SCH (09:00)
[2022-02-24] MEDS ORDERED: NON-FORMULARY MEDICATION (Cholecalciferol (Vitamin D3) [Vitamin D3] 50 mcg (2,000 unit) Ca PO SCH (09:00)
[2022-02-24] MEDS ORDERED: TRIGLIDE PO SCH (09:00)
[2022-02-24] MEDS ORDERED: MAG-OX PO SCH (09:00)
[2022-02-24] MEDS ORDERED: TENORMIN PO SCH (09:00)
[2022-02-24] MEDS ORDERED: MAGNESIUM PO SCH (09:00)
[2022-02-24] MEDS ORDERED: METAMUCIL PO SCH (09:00)
[2022-02-24] MEDS ORDERED: CORDARONE PO SCH (09:00)
[2022-02-24] MEDS ORDERED: COZAAR PO SCH (09:00)
[2022-02-24] MEDS ORDERED: CALCIUM 500 + VIT D 5 MCG (200 IU) TABLET PO SCH (09:00)
[2022-02-24] MEDS ORDERED: VITAMIN D PO SCH (09:00)
[2022-02-24] MEDS ORDERED: NON-FORMULARY MEDICATION (Calcium 600 mg Capsule) PO SCH (09:00)
--- NOTE | 2022-02-26 11:07 | HP ---
DATE OF SERVICE: 02/23/22 REASON FOR HOSPITALIZATION/HISTORY OF PRESENT ILLNESS: Hgb 7.2 yesterday, down from 7.7. She has shortness of breath, tired and weak. Hematology/Oncology appointment next week. Denies corinne bleeding. PAST MEDICAL HISTORY: Anemia History of GI bleed Weight loss Thyroid nodule, left Compression fracture T7, T10 and L4 Dyslipidemia Left sciatica Neuropathy Palpitations History of SVT Hypertension COPD PAST SURGICAL HISTORY: CTS surgery Hysterectomy Tonsil Gallbladder Cataracts Knee replacement, right and left REVIEW OF SYSTEMS: CONSTITUTIONAL: No fever, Fatigue. HEENT: No sinus drainage, no sore throat. RESPIRATORY: No cough, no congestion. CARDIOVASCULAR: No atypical chest pain for coronary artery disease. No angina, CHF symptoms, palpitations. Shortness of breath. GASTROINTESTINAL: No melena or abdominal pain. No GERD. GENITOURINARY: No hematuria, no prostatism, no polyuria. FOREST ECOLOGY PROFESSOR: No blackout, no dizziness, no headache, no double vision. MUSCULOSKELETAL: No osteoarthritis pain, no joint swelling. ENDOCRINE: No weight loss, no weight gain. SKIN: Not dry, no rash. PSYCHIATRIC: Not anxious, no depression, no suicidal thoughts, no homicidal thoughts. SOCIAL HISTORY: Marital Status: . Alcohol Usage: No. Tobacco Usage: No. FAMILY HISTORY: Father Mother Brother 0 Sister 1 MEDICATIONS: Amiodarone 200mg daily Miralax daily Protonix 40mg BID Atenolol 50mg daily Calcium daily Diltiazem ER 180mg daily Fenofibrate 145mg PO daily Rose daily Lasix 40mg daily Gabapentin 100mg PO BID Plaquenil 200mg Synthroid 125mg PO daily Losartan 50mg PO daily Mag ox 400mg daily Zaroxolyn 2.5mg daily Potassium 20meq daily Pravastatin 80mg daily Carafate 1gram TID Prednisone 5mg daily Ultram 50mg BID Metolazone 2.5mg Fluconazole 100mg 4 days and stop Vitamin C 500mg one a day Vitamin D3 50mg one daily Fiber 500mg one a day ALLERGIES: Sulfa PHYSICAL EXAMINATION: V/S: Pulse 76, blood pressure 102/60, temperature 98, oxygen saturation 97%. Weight 139.6. GENERAL APPEARANCE: Oriented times three. Pale and clammy. HEENT: Normal. NECK: No JVP, no bruits. RESPIRATORY: Decreased breath sounds. CARDIOVASCULAR: S1, S2, no S3, no murmur. No cyanosis, clubbing. No ascites. GI/ABDOMEN: No tenderness. Bowel sounds are active. EXTREMITIES: +2 bilateral lower extremity edema, pulses +1, equal. FOREST ECOLOGY PROFESSOR: Deep tendon reflexes, sensory, motor and gait all normal. RECTAL/PELVIC/PROSTATE: . ASSESSMENT: 1. Symptomatic anemia 2. Shortness of breath 3. Episode V-tach 4. Anemia 5. EGD/Colonoscopy 02/21- No bleeding 6. Aortic stenosis 7. History of GI bleed 8. Weight loss 9. 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 14.Leg edema 15. GERD 16. CTS surgery 17. CREST syndrome 18. Vitamin D deficiency 19. Left thyroid nodule 20. Compression fracture T7, T10 and L4. 21. Distention of esophagus 22. Esophageal varices 23. Obesity 24. Neuropathy 25. Anxiety 26. Palpitations 27. Stasis dermatitis 28. PVD-Bicking. 29. History of tinea capitis 30. History of SVT 31. Dyslipidemia 32. Left hip pain 33. ASHD 34. Left sciatica 35. Hyperglycemia 36. Leukocytosis 37. Carotid stenosis 38. Hypertension 39. COPD PLAN: 1. The patient to be tested in the drive thru 2. Routine telemetry, no cardiac markers 3. CBC and CMP now and daily 4. Type and cross match and give two units PRBC 5. U/A 6. Chest x-ray 7. Regular diet 8. Hold Protonix PO 9. Start Protonix 40mg IV Q 12 hours 10. O2 at 1-2 liters 11. Stool for blood 12. Continue home medications TIME SPENT: More than 70 minutes. MTDD
--- NOTE | 2022-02-26 12:45 | HP ---
DATE OF SERVICE: 02/23/22 REASON FOR HOSPITALIZATION: Blood transfusion HISTORY OF PRESENT ILLNESS: 81 year old white female who has history of chronic anemia had drop in her hgb from 8.7 on 02/15/22 to 7.7 on 02/20/22. The patient at hgb of 7.2 on 02/22/22 and decision was made to give the patient a couple of units because she was short of breath and fatigue and tired feeling and unable to carry on duty of daily living. She was hospitalized on 02/23/22 at the hospital at 11:25am. Her hgb was noted to be 6 with hct 20. With type and cross match the patient was found to have antibodies. If the [place] in [place] the blood transfusion may not start until the morning of 02/24/22 like 8am or 9am earliest. Request was made to be released in emergency situation. Lab managers got involved and called Dr. Kennedy and I signed the paper but he declined to release. I personally called Dr. Kennedy and he explanation was there is a chance of anaphylaxis because this is the first time antibodies has been noted. It was given to her two weeks ago. Explained to him that the patient is having symptoms of shortness of breath and she is symptomatic with drop in the hgb is fast. Again the patient's condition was thorough explained to Dr. Kennedy. He declined to release blood. Explained to the patient, the was called. The other option was for the patient to sign out of the hospital and go to [facility] with the patient's Lining Brusher along with drywall worker. The patient had EGD and colonoscopy done two weeks ago at [facility] where she was also given a couple units of packed red cells. When she went to [facility] for weak and tired feeling with blood in stool, that was on 02/01/22. She was kept in the hospital until 02/09/22 and thorough work up was done. They could find the source of bleeding. The source of bleeding was thought to be myelodysplasia. In any case regular transfer center of [facility] but they had no beds. The patient signed out again medical advised. Instructed to go to [facility] emergency room. The patient had hgb and hct done around 2pm that was recorded as 5.9 and 19.9. Again 6 and 22 done at 11:25am after practically three hours the patient's hgb and hct were stable. The patient's condition stable. She was oriented to time, place and person. The also understood need for the patient to go to the [facility] where she could be taken care of. [facility] will have hematology/oncologist/drywall worker and also the pathologist with more expertise available against the antibodies would prevent her from having any blood transfusion in this hospital for at least 12-18 hours. TIME SPENT: More than 70 minutes. FAUSTO
--- NOTE | 2022-02-26 13:32 | SSS ---
DATE OF SERVICE: 02/23/22 REASON FOR ADMISSION/HISTORY OF PRESENT ILLNESS: The patient's type and cross match showed antibody which required the patient's blood to go to [place] to [place]. The blood likely to be given to the patient wont be available till morning of 02/24/22. The patient was electively hospitalized for blood transfusion. She decided to go to [facility] Emergency Room. The was called and he agreed. The patient was at [facility] and was supposed to be seen by GI specialist etc but she never got a call. Discharge date of 02/09/22 and she was followed up by GI and eyeglass inspector. Her physicians are at [facility] more than [facility]. Tried to transfer to [facility] but it was full. The patient decided to sign out and go to the emergency room directly. The patient was supposed to be seen by [facility] Specialist and also was supposed to be scheduled for capsule study by [facility] but she didn't get any calls. REVIEW OF SYSTEMS: CONSTITUTIONAL: No night sweats. No fatigue, malaise, lethargy. No fever or chills. HEENT: Eyes: No visual changes. No eye pain. No eye discharge. ENT: No runny nose. No epistaxis. No sinus pain. No sore throat. No odynophagia. No ear pain. No congestion. RESPIRATORY: No cough, no congestion. No hemoptysis. No shortness of breath. CARDIOVASCULAR: No angina symptoms. No CHF symptoms. No atypical chest pain for CAD. No palpitations. No orthopnea. GASTROINTESTINAL: No abdominal pain. No nausea or vomiting. No diarrhea or constipation. No hematemesis. No hematochezia. GENITOURINARY: No dysuria. No hematuria. No obstructive symptoms. No discharge. No pain. No significant abnormal bleeding. MUSCULOSKELETAL: No musculoskeletal pain. No joint swelling. NEUROLOGICAL: Awake, alert, oriented to time, place and person. No headache. No neck pain. No syncope. No seizures. No dizziness. PSYCHIATRIC: Not anxious. No depression. No suicidal thoughts. No homicidal thoughts. SKIN: No rash. No lesions. No wounds. ENDOCRINE: No unexplained weight loss. No weight gain. HEMATOLOGIC/LYMPHATIC: No anemia. No purpura. No petechiae. No prolonged or excessive bleeding. No palpable lymph nodes. PAST HISTORY: As listed in final diagnosis. PERSONAL/FAMILY HISTORY/SOCIAL HISTORY: The patient is and lives with the . Nonsmoker. No alcohol abuse. PHYSICAL EXAMINATION: GENERAL: The patient looked pale. VITAL SIGNS: Stable as mentioned. HEENT: Head normocephalic, atraumatic. Eyes: Extraocular muscles are intact. Pupils are equal, round and reactive to light and accommodation. Ears: No lesions. Nose appeared normal. Throat: No exudate or erythema. NECK: Supple. No JVD, no carotid bruit. No lymphadenopathy or thyromegaly. LUNGS: Clear to auscultation. Percussion note normal. Chest symmetrical. HEART: S1, S2, no S3. Grade I to II/ systolic ejection murmurs. No cyanosis or clubbing. No ascites. Pulses: Dorsalis pedis and posterior tibial pulses +1 to +2 bilaterally. ABDOMEN: Soft. Nontender. Bowel sounds active. No CVA tenderness. No mass felt. EXTREMITIES: Trace to +1 edema both lower extremities. Full range of motion of all extremities, equal. NEUROLOGIC: No focal deficit. Cranial nerves II through XII are grossly intact. No headache, no double vision or headache. SKIN: Not dry. Intact. Turgor - normal. LYMPHATIC: No palpable lymph nodes/no lymphedema. MUSCULOSKELETAL: Normal joints with no swelling. Muscle tone is normal. ALLERGIES: Sulfa MEDICATIONS: Amiodarone Pantoprazole Atenolol Carbonate Diltazem Fenofibrate Lasix Hydroxychloroquine Gabapentin Levothyroxine Metolazone Potassium supplement Pravastatin Prednisone Tramadol Digoxin was discontinued at [facility] on 02/01/22 HOSPITAL COURSE: 81 year old white female was hospitalized electively for transfusion. The patient's hgb was noted to be 7.2 on 02/22/22. She was supposed to get blood transfusion practically two units on 02/23/22. The patient on 02/23/22 at [facility] the patient's hgb was noted at 6. Hgb was 8.7 on 02/15/22 it has dropped to 6 now on 02/23/22. Type and cross match showed antibodies. Emergency blood release was signed by nh, not approved by Dr. Kennedy. Talked to Dr. Kennedy personally and discussed the case but he said that risk an anaphylaxis was so high he would no release the blood. This matter was discussed with the patient in the presence of nursing staff. The patient was in hospital for 3-4 hours. Hgb and hct were checked again which were practically the same. Vitals were stable with pulse of 75, blood pressure 120/70, oxygen saturation on room air was 95%. She was oriented to time,place and person. Different options were discussed and I discussed with her that [facility] is at capacity, talked to transfer Center. She did not want to go to [facility]. She said that my Packaging Clerk/Oncologist Dr. Collins is at [facility] and her GI specialist Dr. Basurto is at [facility]. She decided to sign out and go to the ER at [facility]. DIAGNOSES: 1. Symptomatic anemia 2. Chronic anemia of chronic blood loss likely cause angiodysplasia of GI tract 3. CREST syndrome 4. Chronic kidney disease, followed by Dr. Burton 5. Chronic anemia, followed by Dr. Collins 6. Shortness of breath which is a combination of sedentary lifestyle 5. Aortic stenosis 6. Anemia 7. Severe DJD spine, with sciatica 8. History of esophageal varices 9. Compression fracture T7, T10 and L4. 10.Partial amputation by Dr. Liu 11.History of osteomyelitis 12.Recent hospitalization, [facility], 02/01/22 to 02/09/22 with tired feeling, fatigue and blood in stool with three units of blood transfusion 13.History of runs of V-tach at [facility] with Bradyarrhythmias TIME SPENT: More than 70 minutes. MTDD
--- NOTE | 2022-02-26 13:32 | PN ---
02/23/22: Level total time spent more than 2 hours. MTDD
== END 2022-02-23 15:29 | disposition left against medical advice (07) ==
LOC: LAB 08:54 → MEDSURG A 10:44 → INTOOBSV 10:44
PROVIDERS: ADMIT Internal Medicine; ATTEND Internal Medicine
DX: Z87.39 Personal history of other diseases of the musculoskeletal system and connective tissue; I35.0 Nonrheumatic aortic (valve) stenosis; Z87.19 Personal history of other diseases of the digestive system; Z51.81 Encounter for therapeutic drug level monitoring; D50.0 Iron deficiency anemia secondary to blood loss (chronic); Z79.899 Other long term (current) drug therapy; Z86.79 Personal history of other diseases of the circulatory system; Z87.81 Personal history of (healed) traumatic fracture; M34.1 CR(E)ST syndrome; K31.811 Angiodysplasia of stomach and duodenum with bleeding; R06.02 Shortness of breath; Z20.822 Contact with and (suspected) exposure to COVID-19; N18.9 Chronic kidney disease, unspecified; M51.36 Other intervertebral disc degeneration, lumbar region

== ENCOUNTER 2023-07-15 10:08 | Inpatient (IN) ==
[2023-07-15 11:14] LABS: SARS COV-2 RNA RAPID NAAT NEGATIVE (NEGATIVE)
[2023-07-15 11:25] LABS: HEMATOCRIT 37.1 % (37.0-47.0); HEMOGLOBIN 10.8 g/dl (12.0-16.0); MEAN CORPUSCULAR HEMOGLOBIN 29.8 pg (27.0-31.0); MEAN CORPUSCULAR HGB CONC 29.1 (31.8-35.4); MEAN CORPUSCULAR VOLUME 102.2 fl (81.0-99.0); PLATELET COUNT 295 10^3/uL (140-440); RDW COEFFICIENT OF VARIATION 22.6 % (11.6-14.8); RED BLOOD COUNT 3.63 10^6/ul (4.20-5.40); WHITE BLOOD COUNT 9.28 K/ul (4.6-10.2)
--- NOTE | 2023-07-15 11:31 | ED.PDOC ---
General ED Provider: Dr. JAMILAH ABRAMS DO Chief Complaint: Shortness of Air Stated Complaint: Patient is a 82 yo F here for SOB and LE edema Justo arrives afebrile and vitally stable by POV with She is speaking in full senteces on room air spo2 97% She deneis chest pressure or chest pain SHe deneis falls or injuries No sock contacts Justo has never been a smoker SHe reports Dr. Szymanski might want to see her for worsening edema Patient pleasant to speak with Time Seen by Provider: 07/15/23 10:37 Information Source: Patient Primary Care Provider: KASSIE SZYMANSKI MD Nursing and Triage Documentation Reviewed and Agree: Yes Review of Systems Review Of Systems Constitutional: Denies Chills, Fever or Weakness Eyes: Denies Blindness or Foreign body sensation Ears, Nose, Mouth, Throat: Denies Ear pain or Nose pain Respiratory: Reports Shortness of Breath; Denies Cough, Stridor or Wheezing Cardiac: Denies Chest pain, Palpitations or Syncope GI: Denies Constipated or Diarrhea : Denies Burning, Dysuria or Discharge Musculoskeletal: Reports Other (LE edema); Denies Back pain or Joint pain Skin: Denies Bruising or Rash Neurological: Denies Anxiety or Numbness Endocrine: Reports No symptoms Hematologic/Lymphatic: Reports No symptoms All Other Systems: Reviewed and Negative [facility] Medical History Arthritis M19.90 - Unspecified osteoarthritis, unspecified site (ICD-10) COPD (chronic obstructive pulmonary disease) J44.9 - Chronic obstructive pulmonary disease, unspecified (ICD-10) 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 - CR(E)ST syndrome (ICD-10) GI bleed K92.2 - Gastrointestinal hemorrhage, unspecified (ICD-10) History of esophageal dilatation Z98.890 - Other specified postprocedural states (ICD-10) Left foot amputee Z89.432 - Acquired absence of left foot (ICD-10) Left thyroid nodule E04.1 - Nontoxic single thyroid nodule (ICD-10) Obesity (BMI 30-39.9) E66.9 - Obesity, unspecified (ICD-10) Polycythemia D75.1 - Secondary polycythemia (ICD-10) Stasis dermatitis I87.2 - Venous insufficiency (chronic) (peripheral) (ICD-10) Varicose veins of both lower extremities I83.93 - Asymptomatic varicose veins of bilateral lower extremities (ICD-10) Wound of left foot S91.302A - Unspecified open wound, left foot, initial encounter (ICD-10) Family History FATHER Hypertension Alzheimer disease Mother Hypertension Cancer Other No known health problems Social History Smoking and tobacco status: Never smoker Alcohol intake: never Substance use type: does not use Special mary lou needs: No Agree to transfusion: Yes Adopted: No Caregiver/support person: No Foster care: No Household members: spouse Housing: house Marital status: M Lives independently: Yes Number of children: 2 service: No [employer]: No Current occupational status: retired History of recent travel: No ([place] through [place]) Current gender identity: female Seatbelt use: always Drives intoxicated or rides with intoxicated otr truck driver: No Water heater temperature set < 120 degrees: Yes Working smoke detector in home: Yes Fire extinguisher in home: Yes Carbon monoxide detector in home: Yes Surgical History History of endoscopy Z98.890 - Other specified postprocedural states (ICD-10) History of carpal tunnel release Z98.890 - Other specified postprocedural states (ICD-10) History of total left knee replacement (TKR) Z96.652 - Presence of left artificial knee joint (ICD-10) History of cholecystectomy Z90.49 - Acquired absence of other specified parts of digestive tract (ICD- 10) Female Reproductive History Menstrual Hx Hysterectomy: Yes Hx Tubal Ligation: No Physical Exam Physical Exam Appearance: Reports Well-appearing, Well-nourished and Obese Ill-appearing: Not Applicable Pain Distress: Not Applicable Eyes: Reports CATIA, EOMI and Conjunctiva clear ENT: Reports Ears normal, Nose normal and Oropharynx normal Neck: Supple Respiratory: Reports Airway patent and Breath sounds clear; Denies Airway obstructed, Wheezes or Retractions Cardiovascular: Reports RRR and Pulses normal GI/: Reports Soft and Nontender Musculoskeletal: Reports Normal strength, ROM intact and Edema (1+ BL LE) Skin: Reports Warm and Dry Neurological: Reports Sensation intact and Motor intact Psychiatric: Reports Affect appropriate and Mood appropriate Interpretation EKG Interpretation EKG Interpretation By: ED Physician Time of EKG #1: 11:00 Interpretation: NSR rate 73 no stemi LBBB similar to previous Radiology Interpretation Radiology Interpretation By: ED Physician Radiology Results: Positive Exam Interpreted: CXR Xray Comments: LLL consolidation no pneumothroax Critical Care Note Critical Care Note Total Critical Care Time (mins): 0 Course Course 07/15/23 11:22 07/15/23 11:40 Orders, Labs, Meds: Lab Review 07/15/23 07/15/23 07/15/23 10:43 11:22 11:40 WBC 9.28 RBC 3.63 L Hgb 10.8 L Hct 37.1 MCV 102.2 H MCH 29.8 MCHC 29.1 L RDW Coeff of Martha 22.6 H Plt Count 295 Neutrophils % (Manual) 87.0 H Lymphocytes % (Manual) 4.0 L Monocytes % (Manual) 9.0 Anisocytosis 1+ Target Cells Occasional Tear Drop Cells Occasional Ovalocytes 1+ [place] Cells Occasional Sodium 133.4 L Potassium 4.31 Chloride 101.0 Carbon Dioxide 25.7 Anion Gap 11.01 BUN 67.0 H* Creatinine 1.75 H Estimated GFR (MDRD) 28.00 BUN/Creatinine Ratio 38.28 Glucose 105.0 Calcium 6.76 L Magnesium 2.72 H Total Bilirubin 0.52 AST 66.5 H ALT 63.1 H Alkaline Phosphatase 105.8 Troponin I 0.055 NT-Pro-B Natriuret Pep 86290 H Total Protein 7.53 Albumin 3.92 Globulin 3.61 Albumin/Globulin Ratio 1.08 SARS CoV-2 RNA Rapid MARKEL Negative 07/15/23 13:14 WBC RBC Hgb Hct MCV MCH MCHC RDW Coeff of Martha Plt Count Neutrophils % (Manual) Lymphocytes % (Manual) Monocytes % (Manual) Anisocytosis Target Cells Tear Drop Cells Ovalocytes [place]ady Cells Sodium Potassium Chloride Carbon Dioxide Anion Gap BUN Creatinine Estimated GFR (MDRD) BUN/Creatinine Ratio Glucose Calcium Magnesium Total Bilirubin AST ALT Alkaline Phosphatase Troponin I 0.051 NT-Pro-B Natriuret Pep Total Protein Albumin Globulin Albumin/Globulin Ratio SARS CoV-2 RNA Rapid MARKEL Orders Category Date Time Status ADMIT PATIENT INPATIENT .TO [facility] (NON-MONITORED ADMISSION 07/15/23 13:55 Active BED) EKG-(ED ONLY) Stat CARDIO 07/15/23 10:33 Completed CBC W/ AUTO DIFF Stat LAB 07/15/23 11:22 Completed COMPREHENSIVE METABOLIC PANEL Stat LAB 07/15/23 11:40 Completed MAGNESIUM Stat LAB 07/15/23 11:40 Completed MANUAL DIFFERENTIAL Stat LAB 07/15/23 11:22 Completed NT-PROBNP(ED) Stat LAB 07/15/23 11:40 Completed RBC MORPHOLOGY Stat LAB 07/15/23 11:22 Completed SARS COV-2 RNA RAPID MARKEL Stat LAB 07/15/23 10:43 Completed TROPONIN I Stat LAB 07/15/23 11:40 Completed TROPONIN I Stat LAB 07/15/23 13:14 Completed Doxycycline Hyclate Meds 07/15/23 13:41 Discontinued 100 mg PO ONCE ONE Sodium Chloride 0.9% [Sodium Chloride] 500 ml Meds 07/15/23 13:18 Active IV 60 mls/hr CXR [CHEST, 2 VIEWS PA & LAT] Stat RADS 07/15/23 10:34 Completed Medications Generic Name Dose Route Start Last Admin Trade Name Freq PRN Reason Stop Dose Admin Sodium Chloride 500 mls @ 60 mls/hr 07/15/23 13:18 Sodium Chloride IV 07/15/23 21:37 .[id number] STA Discontinued Medications Generic Name Dose Route Start Last Admin Trade Name Freq PRN Reason Stop Dose Admin Doxycycline Hyclate 100 mg 07/15/23 13:41 Doxycycline Hyclate 100 Mg Capsule PO 07/15/23 13:42 ONCE ONE MDM: Patient is a 82 yo F here for sob and LE edema Patient afebrile and vitally stable Exam reassuring Hx from patient chart review by me 3+ labs and 1 image reviewed by me Gonzales to Dr. Szymanski who agrees to admission WDX: SOB, elevated BNP, LLLB pneumonia, LE edema acute on chronic moderate complexity DDX: I considered shock, stemi, sepsis but these are less likely SDOH: Patient has PCP and family support Patient agrees to admission Doxycycline PO for pneumonia CAROL - 60 cc's/hr for gentle fluid resuscitation Patient stable Vital Signs: Temp Pulse Resp BP Pulse Ox 07/15/23 10:12 98.7 F 77 19 124/62 97 MING Risk Score MING Risk Score: Risk Score Odds of by 30D 0 0.1 (0.1-0.2) 1 0.3 (0.2-0.3) 2 0.4 (0.3-0.5) 3 0.7 (0.6-0.9) 4 1.2 (1.0-1.5) 5 2.2 (1.9-2.6) 6 3.0 (2.5-3.6) 7 4.8 (3.8-6.1) Discharge Plan Discharge Patient Disposition: ADMITTED INPATIENT Discharge Problem: CAROL (acute kidney injury), Elevated brain natriuretic peptide (BNP) level, Bilateral edema of lower extremity, Pneumonia Did you review [place] CHIEF PROJECTIONIST for ALL controlled substances?: Not Applicable ED Provider: JAMILAH ABRAMS Condition: Fair Physician Progress Note: []
[2023-07-15 11:44] LABS: ANISOCYTOSIS 1+ (NOT PRESENT); BURR CELLS OCCASIONAL (NOT PRESENT); OVALOCYTES 1+ (NOT PRESENT); TARGET CELLS OCCASIONAL (NOT PRESENT); TEAR DROP CELLS OCCASIONAL (NOT PRESENT)
[2023-07-15 11:57] LABS: ALANINE AMINOTRANSFERASE 63.1 U/L (0-35); ALBUMIN 3.92 g/dL (3.5-5.0); ALKALINE PHOSPHATASE 105.8 U/L (53-141); ASPARTATE AMINO TRANSFERASE 66.5 U/L (14-36); BILIRUBIN,TOTAL 0.52 mg/dL (0.2-1.3); CALCIUM 6.76 mg/dL (8.4-10.2); CARBON DIOXIDE 25.7 mmol/L (22-30.0); CREATININE 1.75 mg/dL (0.60-1.30); MAGNESIUM 2.72 mg/dL (1.6-2.3); POTASSIUM 4.31 mmol/L (3.5-5.1); SODIUM 133.4 mmol/L (134.5-145); TOTAL PROTEIN 7.53 g/dL (6.3-8.2)
[2023-07-15 12:09] LABS: TROPONIN I 0.055 ng/ml (0.0000-0.120)
--- NOTE | 2023-07-15 13:14 | DI ---
EXAM: CHEST RADIOGRAPH TECHNIQUE: Two views. Frontal and lateral. HISTORY: Shortness of breath COMPARISON: 02/23/2022 IMPRESSION: Abnormal exam. There is cardiomegaly. There is new retrocardiac consolidation involving the mesial aspect left lower lobe consistent with pneumonia . Trace effusions suggested. Subsegmen zelda atelectasis right lung base. There is severe thoracic kyphosis present. There is multilevel ost eoporosis with multilevel likely remote compression deformities present. No acute findings. No activ e disease.
[2023-07-15] MEDS ORDERED: SODIUM CHLORIDE 500 ML IV STA (13:18)
[2023-07-15] MEDS ORDERED: DOXYCYCLINE HYCLATE PO ONE (13:41)
[2023-07-15 15:41] VITALS: BMI 34.3
[2023-07-15] MEDS ORDERED: LASIX IVP ONE (15:56)
[2023-07-15] MEDS ORDERED: LOMOTIL PO PRN (16:01)
[2023-07-15] MEDS ORDERED: TYLENOL PO PRN (16:01)
[2023-07-15] MEDS ORDERED: LIDOCAINE 5% TP PRN (16:06)
[2023-07-15] MEDS ORDERED: ZOFRAN ODT PO PRN (16:06)
[2023-07-15] MEDS ORDERED: LEVOTHYROXINE 125 MCG PO SCH (16:15)
[2023-07-15] MEDS ORDERED: [UNRECOGNIZED DRUG - REMARK] PO SCH (16:15)
[2023-07-15] MEDS ORDERED: MYLICON PO PRN (16:26)
[2023-07-15 16:27] LABS: ABG O2 HGB 92.5 % (95-100); ABG PH 7.38 (7.35-7.45); BEecf 3.9 (-2.0-3.0); COHb 2.6 (0.5-1.5); TCO2 30.5 (19-24); sO2 94.2 % (94-98); tHb 10.5 g/dl (11.7-17.4)
[2023-07-15] MEDS: PROTONIX PO SCH (18:12)
[2023-07-15] MEDS: PRAVACHOL PO SCH (21:27)
[2023-07-15] MEDS: NORCO 5-325 PO PRN (21:27)
[2023-07-15] MEDS: TRIGLIDE PO SCH (21:27)
[2023-07-16] MEDS: NORCO 5-325 PO PRN (02:35)
[2023-07-16] MEDS: SYNTHROID PO SCH ×2 (05:30)
[2023-07-16] MEDS: PROTONIX PO SCH (05:30)
[2023-07-16 05:52] LABS: BASOPHILS % (AUTO) 0.2 % (0.0-3.0); EOSINOPHILS % (AUTO) 0.3 % (0.0-7.0); HEMATOCRIT 34.3 % (37.0-47.0); HEMOGLOBIN 10.1 g/dl (12.0-16.0); IMMATURE GRANULOCYTE % (AUTO) 0.3 % (0.0-5.0); LYMPHOCYTES # (AUTO) 0.4 K/uL (0.60-3.4); LYMPHOCYTES % (AUTO) 4.2 (10.0-50.0); MEAN CORPUSCULAR HEMOGLOBIN 29.4 pg (27.0-31.0); MEAN CORPUSCULAR HGB CONC 29.4 (31.8-35.4); MEAN CORPUSCULAR VOLUME 99.7 fl (81.0-99.0); MONOCYTES % (AUTO) 10.7 (0-10); NEUTROPHILS # (AUTO) 8.1 K/ul (2.0-6.9); NEUTROPHILS % (AUTO) 84.3 % (42.2-75.2); PLATELET COUNT 341 10^3/uL (140-440); RDW COEFFICIENT OF VARIATION 22.8 % (11.6-14.8); RED BLOOD COUNT 3.44 10^6/ul (4.20-5.40); WHITE BLOOD COUNT 9.62 K/ul (4.6-10.2)
[2023-07-16 06:05] LABS: ALANINE AMINOTRANSFERASE 60.3 U/L (0-35); ALBUMIN 3.5 g/dL (3.5-5.0); ALKALINE PHOSPHATASE 99.7 U/L (53-141); ASPARTATE AMINO TRANSFERASE 58.5 U/L (14-36); BILIRUBIN,TOTAL 0.4 mg/dL (0.2-1.3); CALCIUM 6.62 mg/dL (8.4-10.2); CARBON DIOXIDE 27.8 mmol/L (22-30.0); CHLORIDE 100.6 mmol/L (98-107); CREATININE 1.74 mg/dL (0.60-1.30); GLUCOSE 87.6 mg/dL (74-106); POTASSIUM 3.91 mmol/L (3.5-5.1); SODIUM 134.2 mmol/L (134.5-145); TOTAL PROTEIN 6.8 g/dL (6.3-8.2)
[2023-07-16 06:08] LABS: BLOOD UREA NITROGEN 60.2 mg/dL (7-17)
[2023-07-16] MEDS: K-DUR PO SCH (07:26)
[2023-07-16] MEDS: SODIUM CHLORIDE 1,000 ML IV SCH (07:38)
[2023-07-16] MEDS ORDERED: LASIX IVP ONE (08:28)
[2023-07-16] MEDS ORDERED: LIDOCAINE OINTMENT 5% TP PRN (08:41)
[2023-07-16] MEDS ORDERED: DECADRON IM ONE (08:47)
[2023-07-16] MEDS ORDERED: ROCEPHIN 1 GM/50 ML D5W 1 GM/50 ML BAG IV SCH (09:00)
[2023-07-16] MEDS ORDERED: ZITHROMAX 500 MG in SODIUM CHLORIDE 250 ML IV SCH (09:00)
[2023-07-16] MEDS ORDERED: TENORMIN PO SCH (09:00)
[2023-07-16] MEDS ORDERED: CARDIZEM CD PO SCH (09:00)
[2023-07-16] MEDS ORDERED: ELIQUIS PO SCH (09:00)
--- NOTE | 2023-07-16 09:07 | PCM.PROG ---
Attending Provider: ATTENDING PROVIDER: Dr. KASSIE MYERS MD This patient is seen with Tatiana Coronado, Nurse Practitioner. DATE OF SERVICE: 07/16/23 SUBJECTIVE: This 82 year old /WHITE F was hospitalized 07/15/23. Not doing well this morning, feeling very weak and shortness of breath requiring constant O2. This is new from baseline. Only 500cc of urine out. Unable to get out of bed. The patient states that she feels that this maybe the end that her body is giving up. Been in constant atrial fibrillation with RVR for past 24 hours and cachexia with respirations up to 24. REVIEW OF SYSTEMS: CONSTITUTIONAL: No night sweats. No fatigue, malaise, lethargy. No fever or chills. HEENT: Eyes: No visual changes. No eye pain. No eye discharge. ENT: No runny nose. No epistaxis. No sinus pain. No odynophagia. No congestion. RESPIRATORY: No cough, no congestion. No hemoptysis. Shortness of breath. CARDIOVASCULAR: No angina symptoms. No CHF symptoms. No atypical chest pain for CAD. No palpitations. No orthopnea.. GASTROINTESTINAL: No abdominal pain. No nausea or vomiting. No diarrhea or constipation. No hematemesis. No hematochezia. GENITOURINARY: No urgency. No frequency. No dysuria. No hematuria. No obstructive symptoms. No discharge. No pain. No significant abnormal bleeding. MUSCULOSKELETAL: No musculoskeletal pain; no joint swelling. Weakness. Leg edema. NEUROLOGICAL: Awake, alert, oriented to time, place and person. No headache. No neck pain. No syncope. No seizures. No dizziness. PSYCHIATRIC: Not anxious. No depression. No suicidal thoughts. No homicidal thoughts. SKIN: No rash. No lesions. No wounds. ENDOCRINE: No unexplained weight loss. No weight gain. HEMATOLOGIC/LYMPHATIC: No anemia. No purpura. No petechiae. No prolonged or excessive bleeding. No palpable lymph nodes. PHYSICAL EXAMINATION: GENERAL: The patient is awake, alert and oriented, sitting in bed in no distress. VITAL SIGNS: Temperature 97.7 F, Pulse 92, Respiratory Rate 24, BP 110/62, Pulse Ox 93% HEENT: Head normocephalic, atraumatic. Eyes: Extraocular muscles are intact. Pupils are equal, round and reactive to light and accommodation. Ears: No lesions. Nose appeared normal. Throat: No exudate or erythema. NECK: Supple. No JVD, no carotid bruit. No lymphadenopathy or thyromegaly. LUNGS: Severely Diminished breath sounds. Clear to auscultation. Mild distress with talking. Percussion note normal. Chest symmetrical. HEART: Irregular heart rate. with grade I systolic murmur. S1, S2, no S3. No cyanosis or clubbing. No ascites. Pulses: Dorsalis pedis and posterior tibial pulses +1 to +2 both sides. ABDOMEN: Soft. Non-tender. Bowel sounds active. No CVA tenderness. No mass felt. EXTREMITIES:+1 bilateral leg edema. Full range of motion of all extremities, equal. NEUROLOGIC: No focal deficit. Cranial nerves II through XII are grossly intact. No headache. No double vision. SKIN: Not dry. Intact. Turgor-normal. LYMPHATIC: No palpable lymph nodes/no lymphedema. MUSCULOSKELETAL: Normal joints with no swelling. Muscle tone is normal. LAB REVIEW: 07/16/23 05:24 07/16/23 05:24 07/16/23 05:24: WBC 9.62, RBC 3.44 L, Hgb 10.1 L, Hct 34.3 L, MCV 99.7 H, MCH 29.4, MCHC 29.4 L, RDW Coeff of Martha 22.8 H, Plt Count 341, Immature Gran % (Auto) 0.3, Neut % (Auto) 84.3 H, Lymph % (Auto) 4.2 L, [place] % (Auto) 10.7 H, Eos % (Auto) 0.3, Baso % (Auto) 0.2, Neut # (Auto) 8.1 H, Lymph # (Auto) 0.4 L, [place] # (Auto) 1.0, Eos # (Auto) 0.0, Baso # (Auto) 0.0, Immature Gran # (Auto) 0.0, Sodium 134.2 L, Potassium 3.91, Chloride 100.6, Carbon Dioxide 27.8, Anion Gap 9.71, BUN 60.2 H*, Creatinine 1.74 H, Estimated GFR (MDRD) 28.00, BUN/Creatinine Ratio 34.59, Glucose 87.6, Calcium 6.62 L, Total Bilirubin 0.40, AST 58.5 H, ALT 60.3 H, Alkaline Phosphatase 99.7, Total Protein 6.80, Albumin 3.50, Globulin 3.30, Albumin/Globulin Ratio 1.06 07/15/23 16:16: Puncture Site Rrad, Base Excess 3.9 H, O2 Saturation 94.2, ABG pH 7.38, ABG pCO2 49.0 H, ABG pO2 73.0 L, ABG HCO3 29.0 H, ABG Total CO2 30.5 H, [place] Test Pos, Hemoglobin 1.0, Oxyhemoglobin 92.5 L, Carboxyhemoglobin 2.6 H, T otal Hemoglobin 10.5 L, O2 Delivery Device Cannula, Oxygen Liter Flow 2.00 07/15/23 13:14: Troponin I 0.051 07/15/23 11:40: Sodium 133.4 L, Potassium 4.31, Chloride 101.0, Carbon Dioxide 25.7, Anion Gap 11.01, BUN 67.0 H*, Creatinine 1.75 H, Estimated GFR (MDRD) 28.00, BUN/Creatinine Ratio 38.28, Glucose 105.0, Calcium 6.76 L, Magnesium 2.72 H, Total Bilirubin 0.52, AST 66.5 H, ALT 63.1 H, Alkaline Phosphatase 105.8, Troponin I 0.055, NT-Pro-B Natriuret Pep 06263 H, Total Protein 7.53, Albumin 3.92, Globulin 3.61, Albumin/Globulin Ratio 1.08 07/15/23 11:22: WBC 9.28, RBC 3.63 L, Hgb 10.8 L, Hct 37.1, MCV 102.2 H, MCH 29.8, MCHC 29.1 L, RDW Coeff of Martha 22.6 H, Plt Count 295, Neutrophils % (Manual) 87.0 H, Lymphocytes % (Manual) 4.0 L, Monocytes % (Manual) 9.0, Anisocytosis 1+, Target Cells Occasional, Tear Drop Cells Occasional, Ovalocytes 1+, [place] Cells Occasional 07/15/23 10:43: SARS CoV-2 RNA Rapid MARKEL Negative ASSESSMENT: Please see below. 1. Acute respiratory failure 2. Pulmonary hypertension 3. Atrial fibrillation with RVR 4. Acute renal failure 5. Chronic anemia 6. Left lower lobe pneumonia. PLAN: 1. CT scan of chest this morning. 2. 20mg IV Lasix 3. Hold Atenolol and Cardizem, will call with medication changes 4. Eliquis 2.5mg BID 5. 2D echo 6. Rocephin 1gram IV daily 7. Zithromax 500mg IV daily Plan and coordination of the patient's care discussed in the presence of Dye Line Operator and nurse. SCRIBED BY: Shefali SHEPHERDist scribed while in presence of service performed by Tatiana Coronado APRN on 07/16/23 ([id number])
[2023-07-16] MEDS: CARDIZEM PO SCH ×2 (09:39→20:50)
[2023-07-16] MEDS: CORDARONE PO SCH (09:39)
[2023-07-16] MEDS: CLARITIN PO SCH (09:39)
--- NOTE | 2023-07-16 09:39 | CT ---
EXAM: CHEST CT WITHOUT CONTRAST TECHNIQUE: CT acquisition of the chest from the thoracic inlet to the upper abdomen without IV contra st administration. 2-D coronal and sagittal reformatted images were obtained from the axial source i mages. IV Contrast: None. CT Dose Reduction Techniques Performed: Yes. COMPARISON: 09/15/2021 HISTORY: Shortness of breath. FINDINGS: CHEST: Lung Parenchyma and Airways: Mild bilateral dependent compressive atelectasis is noted. No suspiciou s mass or consolidation. Pleural Space: New small to moderate layering pleural effusions are identified. No pneumothorax. Mediastinum: The cardiomegaly is noted. A small pericardial effusion is identified. The great vessel s appear within normal limits. The esophagus is diffusely patulous, with debris. This has worsened on the current exam. Lymph Nodes: No enlarged lymph nodes. Bones and Soft Tissues: Age-related degerative changes are noted. Diffuse osteopenia is identified. A new compression deformity of T6 is identified, likely chronic. Upper Abdomen: The visualized portions of the upper abdomen appear within normal limits. IMPRESSION: 1. Cardiomegaly and pleural effusions are identified, most consistent with cardiogenic pulmonary magdalena a. 2. The esophagus is diffusely patulous, concerning for achalasia. Correlation with conventional esop hagram is recommended. All CT scans are performed using dose optimization techniques as appropriate to the performed exam an d include at least one of the following: Automated exposure control, adjustment of the mA and/or kV according t o size, and the use of iterative reconstruction technique.
[2023-07-16] MEDS: COZAAR PO SCH (09:40)
[2023-07-16] MEDS: VITAMIN C PO SCH (09:40)
[2023-07-16] MEDS: COREG PO SCH ×2 (09:40→16:12)
[2023-07-16] MEDS: MAG-OX PO SCH (09:41)
[2023-07-16] MEDS: JARDIANCE PO SCH (09:41)
[2023-07-16] MEDS: VITAMIN D PO SCH (09:46)
[2023-07-16] MEDS ORDERED: ZOFRAN 4 MG/2 ML IVP PRN ×2 (11:45→15:32)
[2023-07-16] MEDS ORDERED: MORPHINE 4 MG/ML SYRINGE IVP ONE (14:20)
[2023-07-16] MEDS ORDERED: ZOFRAN 4 MG/2 ML IVP ONE (14:20)
[2023-07-16 14:35] LABS: ABG O2 HGB 92.1 % (95-100); BEecf 1.3 (-2.0-3.0); COHb 2.6 (0.5-1.5); HCO3 28.5 (21-28); MetHb 1.1 (0-1.5); TCO2 30.5 (19-24); sO2 92.3 % (94-98); tHb 10.5 g/dl (11.7-17.4)
[2023-07-16 14:37] LABS: ABG PH 7.25 (7.35-7.45)
[2023-07-16] MEDS: PROTONIX IV IVP SCH (16:08)
[2023-07-16 16:23] LABS: ABG O2 HGB 92.5 % (95-100); BEecf 0.5 (-2.0-3.0); COHb 2.7 (0.5-1.5); HCO3 28.2 (21-28); MetHb 0.7 (0-1.5); TCO2 30.3 (19-24); sO2 92.2 % (94-98); tHb 10.4 g/dl (11.7-17.4)
[2023-07-16 16:48] LABS: ABG PH 7.22 (7.35-7.45)
[2023-07-16] MEDS: TRIGLIDE PO SCH (20:50)
[2023-07-16] MEDS: PRAVACHOL PO SCH (20:51)
[2023-07-17] MEDS: SODIUM CHLORIDE 1,000 ML IV SCH ×2 (00:56→16:29)
[2023-07-17 05:01] LABS: ABG O2 HGB 91.5 % (95-100); ABG PH 7.31 (7.35-7.45); BEecf -0.1 (-2.0-3.0); COHb 2.6 (0.5-1.5); HCO3 26.2 (21-28); MetHb 0.7 (0-1.5); TCO2 27.8 (19-24); sO2 90.7 % (94-98); tHb 9.9 g/dl (11.7-17.4)
[2023-07-17] MEDS: SYNTHROID PO SCH ×2 (05:36→05:37)
[2023-07-17] MEDS: PROTONIX IV IVP SCH ×3 (05:37→20:13)
[2023-07-17 05:39] LABS: BASOPHILS % (AUTO) 0.1 % (0.0-3.0); EOSINOPHILS % (AUTO) 0.1 % (0.0-7.0); HEMATOCRIT 31.6 % (37.0-47.0); HEMOGLOBIN 9.2 g/dl (12.0-16.0); IMMATURE GRANULOCYTE % (AUTO) 0.2 % (0.0-5.0); LYMPHOCYTES # (AUTO) 0.1 K/uL (0.60-3.4); LYMPHOCYTES % (AUTO) 1.6 (10.0-50.0); MEAN CORPUSCULAR HEMOGLOBIN 29.2 pg (27.0-31.0); MEAN CORPUSCULAR HGB CONC 29.1 (31.8-35.4); MEAN CORPUSCULAR VOLUME 100.3 fl (81.0-99.0); MONOCYTES # (AUTO) 0.6 K/uL (0.4-2.0); MONOCYTES % (AUTO) 6.8 (0-10); NEUTROPHILS # (AUTO) 8.2 K/ul (2.0-6.9); NEUTROPHILS % (AUTO) 91.2 % (42.2-75.2); PLATELET COUNT 340 10^3/uL (140-440); RDW COEFFICIENT OF VARIATION 22.7 % (11.6-14.8); RED BLOOD COUNT 3.15 10^6/ul (4.20-5.40); WHITE BLOOD COUNT 8.99 K/ul (4.6-10.2)
[2023-07-17 06:04] LABS: ALANINE AMINOTRANSFERASE 71.3 U/L (0-35); ALBUMIN 3.16 g/dL (3.5-5.0); ALKALINE PHOSPHATASE 89.6 U/L (53-141); ASPARTATE AMINO TRANSFERASE 92.5 U/L (14-36); BILIRUBIN,TOTAL 0.36 mg/dL (0.2-1.3); CALCIUM 6.29 mg/dL (8.4-10.2); CARBON DIOXIDE 21.5 mmol/L (22-30.0); CHLORIDE 103.5 mmol/L (98-107); CREATININE 2.14 mg/dL (0.60-1.30); GLUCOSE 98.1 mg/dL (74-106); POTASSIUM 4.77 mmol/L (3.5-5.1); SODIUM 133.5 mmol/L (134.5-145); TOTAL PROTEIN 6.32 g/dL (6.3-8.2)
[2023-07-17 06:13] LABS: BLOOD UREA NITROGEN 65.5 mg/dL (7-17)
[2023-07-17] MEDS: CARDIZEM PO SCH ×2 (08:36→20:12)
[2023-07-17] MEDS: COZAAR PO SCH (08:36)
[2023-07-17] MEDS: CORDARONE PO SCH (08:36)
[2023-07-17] MEDS: VITAMIN C PO SCH (08:36)
[2023-07-17] MEDS: JARDIANCE PO SCH (08:37)
[2023-07-17] MEDS: K-DUR PO SCH (08:37)
[2023-07-17] MEDS: CLARITIN PO SCH (08:37)
[2023-07-17] MEDS: MAG-OX PO SCH (08:37)
[2023-07-17] MEDS: VITAMIN D PO SCH (08:38)
[2023-07-17] MEDS: COREG PO SCH ×2 (08:38→16:25)
[2023-07-17] MEDS: ULTRAM PO PRN (16:25)
[2023-07-17] MEDS: TRIGLIDE PO SCH (20:12)
[2023-07-17] MEDS: PRAVACHOL PO SCH (20:12)
[2023-07-18] MEDS: MORPHINE 4 MG/ML SYRINGE IVP PRN (02:29)
[2023-07-18] MEDS: PROTONIX IV IVP SCH ×2 (05:00→17:26)
[2023-07-18] MEDS: SYNTHROID PO SCH ×2 (05:00→05:01)
[2023-07-18 05:15] LABS: ABG O2 HGB 90.2 % (95-100); BEecf -0.3 (-2.0-3.0); COHb 2.1 (0.5-1.5); HCO3 26.6 (21-28); TCO2 28.4 (19-24); sO2 88.2 % (94-98); tHb 9.1 g/dl (11.7-17.4)
[2023-07-18 05:25] LABS: ABG PH 7.27 (7.35-7.45)
[2023-07-18 05:47] LABS: BASOPHILS % (AUTO) 0.1 % (0.0-3.0); EOSINOPHILS % (AUTO) 0.5 % (0.0-7.0); HEMATOCRIT 30.5 % (37.0-47.0); HEMOGLOBIN 8.9 g/dl (12.0-16.0); IMMATURE GRANULOCYTE % (AUTO) 0.3 % (0.0-5.0); LYMPHOCYTES # (AUTO) 0.3 K/uL (0.60-3.4); LYMPHOCYTES % (AUTO) 3.9 (10.0-50.0); MEAN CORPUSCULAR HEMOGLOBIN 29.8 pg (27.0-31.0); MEAN CORPUSCULAR HGB CONC 29.2 (31.8-35.4); MONOCYTES # (AUTO) 0.8 K/uL (0.4-2.0); MONOCYTES % (AUTO) 10.5 (0-10); NEUTROPHILS # (AUTO) 6.3 K/ul (2.0-6.9); NEUTROPHILS % (AUTO) 84.7 % (42.2-75.2); PLATELET COUNT 342 10^3/uL (140-440); RDW COEFFICIENT OF VARIATION 22.6 % (11.6-14.8); RED BLOOD COUNT 2.99 10^6/ul (4.20-5.40)
[2023-07-18 05:59] LABS: ALANINE AMINOTRANSFERASE 74.8 U/L (0-35); ALBUMIN 3.22 g/dL (3.5-5.0); ALKALINE PHOSPHATASE 84.5 U/L (53-141); ASPARTATE AMINO TRANSFERASE 80.3 U/L (14-36); BILIRUBIN,TOTAL 0.26 mg/dL (0.2-1.3); CALCIUM 5.97 mg/dL (8.4-10.2); CARBON DIOXIDE 22.7 mmol/L (22-30.0); CHLORIDE 102.8 mmol/L (98-107); CREATININE 2.84 mg/dL (0.60-1.30); GLUCOSE 109.8 mg/dL (74-106); POTASSIUM 5.66 mmol/L (3.5-5.1); TOTAL PROTEIN 6.47 g/dL (6.3-8.2)
[2023-07-18 06:34] LABS: BLOOD UREA NITROGEN 71.1 mg/dL (7-17)
[2023-07-18] MEDS: SODIUM CHLORIDE 1,000 ML IV SCH ×2 (06:40→17:45)
[2023-07-18] MEDS ORDERED: LASIX IVP ONE (06:47)
[2023-07-18] MEDS ORDERED: KAYEXALATE SUSP PO ONE (08:06)
--- NOTE | 2023-07-18 08:43 | PCM.PROG ---
Attending Provider: ATTENDING PROVIDER: Dr. KASSIE MYERS MD This patient is seen with Tatiana Coronado, Nurse Practitioner. DATE OF SERVICE: 07/18/23 SUBJECTIVE: This 82 year old /WHITE F was hospitalized 07/15/23. Potassium elevated this morning at 5.6. Having decreased urine output. Increased fluids to 100cc an hour. The patient was very drowsy this morning. ABG slightly worse. REVIEW OF SYSTEMS: CONSTITUTIONAL: No night sweats. No fatigue, malaise, lethargy. No fever or chills. HEENT: Eyes: No visual changes. No eye pain. No eye discharge. ENT: No runny nose. No epistaxis. No sinus pain. No odynophagia. No congestion. RESPIRATORY: No cough, no congestion. No hemoptysis. Shortness of breath. CARDIOVASCULAR: No angina symptoms. No CHF symptoms. No atypical chest pain for CAD. No palpitations. No orthopnea.. GASTROINTESTINAL: No abdominal pain. No nausea or vomiting. No diarrhea or constipation. No hematemesis. No hematochezia. Dysphagia GENITOURINARY: No urgency. No frequency. No dysuria. No hematuria. No obstructive symptoms. No discharge. No pain. No significant abnormal bleeding. MUSCULOSKELETAL: No musculoskeletal pain; no joint swelling. Weakness. NEUROLOGICAL: Awake, alert, oriented to time, place and person. No headache. No neck pain. No syncope. No seizures. No dizziness. PSYCHIATRIC: Not anxious. No depression. No suicidal thoughts. No homicidal thoughts. SKIN: No rash. No lesions. No wounds. Leg edema. ENDOCRINE: No unexplained weight loss. No weight gain. HEMATOLOGIC/LYMPHATIC: No anemia. No purpura. No petechiae. No prolonged or excessive bleeding. No palpable lymph nodes. PHYSICAL EXAMINATION: GENERAL: The patient is awake, alert and oriented, lying in bed in no distress. VITAL SIGNS: Temperature 97.3 F, Pulse 61, Respiratory Rate 16, BP 95/70, Pulse Ox 93% HEENT: Head normocephalic, atraumatic. Eyes: Extraocular muscles are intact. Pupils are equal, round and reactive to light and accommodation. Ears: No lesions. Nose appeared normal. Throat: No exudate or erythema. NECK: Supple. No JVD, no carotid bruit. No lymphadenopathy or thyromegaly. LUNGS: Severely diminished breath sounds. Clear to auscultation. Percussion note normal. Chest symmetrical. HEART: S1, S2, no S3. Regular heart rate. Grade I murmur. No cyanosis or clubbing. No ascites. Pulses: Dorsalis pedis and posterior tibial pulses +1 to +2 both sides. ABDOMEN: Soft. Non-tender. Bowel sounds active. No CVA tenderness. No mass felt. EXTREMITIES: No edema. Full range of motion of all extremities, equal. NEUROLOGIC: No focal deficit. Cranial nerves II through XII are grossly intact. No headache. No double vision. SKIN: Not dry. Intact. Turgor-normal. LYMPHATIC: No palpable lymph nodes/no lymphedema. MUSCULOSKELETAL: Normal joints with no swelling. Muscle tone is normal. LAB REVIEW: 07/18/23 05:42 07/18/23 06:00 07/18/23 06:00: Sodium 133.0 L, Potassium 5.66 H, Chloride 102.8, Carbon Dioxide 22.7, Anion Gap 13.16, BUN 71.1 H*, Creatinine 2.84 H D, Estimated GFR (MDRD) 16.00, BUN/Creatinine Ratio 25.03, Glucose 109.8 H, Calcium 5.97 L, Total Bilirubin 0.26, AST 80.3 H, ALT 74.8 H, Alkaline Phosphatase 84.5, Total Protein 6.47, Albumin 3.22 L, Globulin 3.25, Albumin/Globulin Ratio 0.99 07/18/23 05:42: WBC 7.40, RBC 2.99 L, Hgb 8.9 L, Hct 30.5 L, MCV 102.0 H, MCH 29.8, MCHC 29.2 L, RDW Coeff of Martha 22.6 H, Plt Count 342, Immature Gran % (Auto) 0.3, Neut % (Auto) 84.7 H, Lymph % (Auto) 3.9 L, [place] % (Auto) 10.5 H, Eos % (Auto) 0.5, Baso % (Auto) 0.1, Neut # (Auto) 6.3, Lymph # (Auto) 0.3 L, [place] # (Auto) 0.8, Eos # (Auto) 0.0, Baso # (Auto) 0.0, Immature Gran # (Auto) 0.0 07/18/23 04:33: Puncture Site Rrad, Base Excess -0.3, O2 Saturation 88.2 L, ABG pH 7.27 L*, ABG pCO2 58.0 H, ABG pO2 63.0 L, ABG HCO3 26.6, ABG Total CO2 28.4 H , [place] Test Pos, Hemoglobin 1.0, Oxyhemoglobin 90.2 L, Carboxyhemoglobin 2.1 H, Total Hemoglobin 9.1 L, O2 Delivery Device Vapotherm, FiO2 % 50.0 ASSESSMENT: Please see below. 1. Respiratory failure 2. Acute renal failure 3. Acute CHF, both diastolic and systolic 4. Dysphagia with possible chronic aspiration syndrome 5. Hyperkalemia PLAN: 1. Fluid at 100cc an hour 2. 25 gram Kayexalate 3. 4mg IV Decadron today and tomorrow Prognosis is poor, condition is critical Plan and coordination of the patient's care discussed in the presence of Mail Order Biller and nurse. SCRIBED BY: Blair SHEPHERD scribed while in presence of service performed by Tatiana Coronado APRN on 07/18/23 ([id number])
[2023-07-18] MEDS: JARDIANCE PO SCH (08:55)
[2023-07-18] MEDS: CLARITIN PO SCH (08:56)
[2023-07-18] MEDS: VITAMIN C PO SCH (08:56)
[2023-07-18] MEDS: COREG PO SCH ×2 (08:56→16:47)
[2023-07-18] MEDS: CARDIZEM PO SCH ×2 (08:56→21:13)
[2023-07-18] MEDS: CORDARONE PO SCH (08:56)
[2023-07-18] MEDS: COZAAR PO SCH (08:56)
[2023-07-18] MEDS: VITAMIN D PO SCH (08:56)
[2023-07-18] MEDS: K-DUR PO SCH (08:57)
[2023-07-18] MEDS ORDERED: DECADRON IVP SCH (09:00)
[2023-07-18] MEDS: MAG-OX PO SCH (09:28)
--- NOTE | 2023-07-18 14:39 | HP ---
DATE OF SERVICE: 07/15/23 REASON FOR HOSPITALIZATION: Shortness of air HISTORY OF PRESENT ILLNESS: 82 year old white female came to the emergency room with complaint of having shortness of air. The patient was seen in the office on 07/11/23 with 4+ edema with shortness of breath, fatigue. The patient at that time was somewhat reluctant about getting to the hospital and she went home with Xyloxylin added to her Lasix to be taken. She was supposed to be seen in the office on followup 07/15/23 when she ended in the emergency room with complaint of shortness of breath. On further workup the patient had 4+ pitting and nonpitting edema along with deterioration of her kidney function. Creatinine of 1.7, BUN of 67. Cardiac markers were negative. PRO BNP was 13,000 abnormal, ALT and AST mildly elevated. The patient had evidence of extra vascular fluid overload with possibility of intravascular infection. 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 Lopez Cardiac catheterization done June 2022 History of pulmonary hypertension, moderate to severe GI bleed with AVM, stomach area by Dr. Basurto History of mild aortic stenosis Morbid obesity CREST Syndrome Paget's disease Esophageal varices Compression fracture T4, L4, T7 Radial fracture 08/23, Dr. Mayen Chronic lung disease Hypertension Dyslipidemia Non-occlusive coronary artery disease Stasis dermatitis Bilateral leg edema with pigmentation for number of years. Bilateral hip arthritis Knee arthritis Generalized anxiety disorder Hypothyroidism Generalized osteoarthritis Chronic kidney disease, Dr. Burton follows her REVIEW OF SYSTEMS: CONSTITUTIONAL: No night sweats. Weakness and fatigue. No fever or chills. HEENT: Eyes: No visual changes. No eye pain. No eye discharge. ENT: No runny nose. No epistaxis. No sinus pain. No sore throat. No odynophagia. No ear pain. No congestion. RESPIRATORY: No cough, no congestion. No hemoptysis. Shortness of breath on minimal exertion. CARDIOVASCULAR: No angina symptoms. No CHF symptoms. No atypical chest pain for CAD. No palpitations. No PND. No orthopnea. GASTROINTESTINAL: No abdominal pain. No vomiting. No diarrhea or constipation. No hematemesis. No hematochezia. Poor appetite. Mild nausea. GENITOURINARY: No urgency. No frequency. No dysuria. No hematuria. No obstructive symptoms. No discharge. No pain. No significant abnormal bleeding. MUSCULOSKELETAL: No musculoskeletal pain. No joint swelling. No arthritis. Generalized aches and pains, inability of walk. NEUROLOGICAL: No headache. No neck pain. No syncope. No seizures. No dizziness. PSYCHIATRIC: Not anxious. No depression. No suicidal thoughts. No homicidal thoughts. SKIN: No rash. No lesions. No wounds. ENDOCRINE: No unexplained weight loss. No weight gain. HEMATOLOGIC/LYMPHATIC: No anemia. No purpura. No petechiae. No prolonged or excessive bleeding. No palpable lymph nodes. PERSONAL/FAMILY/SOCIAL HISTORY: The patient lives with the . Non-smoker, no alcohol abuse. The patient depends on all activity of daily living on the . The patient is DNI. MEDICATIONS: Gabapentin Prednisone Losartan Atenolol Tramadol Diltiazem Pantoprazole Ascorbic acid Fexofenadine Amiodarone Hydrocodone Fenofibrate Levothyroxine Lasix Potassium Pravastatin PHYSICAL EXAMINATION: GENERAL: The patient is oriented to time, place and person, looks somewhat pale VITAL SIGNS: Temperature 98.7, pulse 77, respiratory rate 19, blood pressure 124/62 and pulse ox 97% on room air. HEENT: Head normocephalic, atraumatic. Eyes: Extraocular muscles are intact. Pupils are equal, round and reactive to light and accommodation. Ears: No lesions. Nose appeared normal. Throat: No exudate or erythema. NECK: Supple. No JVD, no carotid bruit. No lymphadenopathy or thyromegaly. LUNGS: Decreased breath sounds with few crepitations, dry. Percussion note normal. Chest symmetrical. HEART: S1, S2, no S3. Grade I/ systolic murmur. No cyanosis or clubbing. No ascites. Pulses: Dorsalis pedis and posterior tibial pulses +1 to +2 bilaterally. ABDOMEN: Protuberant. Soft. Nontender. Bowel sounds active. No CVA tenderness. No mass felt. EXTREMITIES: +3 pitting and nonpitting edema with pigmentation of both lower extremities. Full range of motion of all extremities, equal. NEUROLOGIC: No focal deficit. Cranial nerves II through XII are grossly intact. No headache, no double vision or headache. SKIN: Not dry. Intact. Turgor - normal. LYMPHATIC: No palpable lymph nodes/no lymphedema. MUSCULOSKELETAL: Normal joints with no swelling. Muscle tone is normal. LABS: EKG left bundle branch, atrial fibrillation noted. Hgb 10.8, hct 37, WBC 9,200 normal differential, creatinine 1.7, BUN 67. AST and ALT 66/63 respectively, Pro BNP 13,500. ASSESSMENT: 1. Bilateral leg edema with possibility of ventricular failure with history of hypertension, LV dysfunction 2. Chronic lung disease with history of pulmonary hypertension, cardiac cath 06/[address] Lopez 3. Chronic anemia with heavy malformation, Dr. Basurto followed by Hot Strip Finisher 4. CREST syndrome followed by Hot Strip Finisher 5. Chronic kidney disease followed by Dr. Vasquez, azotemia made worse by aggressive diuretic therapy 6. History of atrial fibrillation, paroxysmal no blood thinner because of recurrent GI bleed 7. Pulmonary hypertension, moderate to severe 8. Chronic restrictive lung disease 9. Left foot partial amputation by Dr. Liu 10.Hypothyroidism 11.History of hypertension 12.Dyslipidemia 13.Vascular disease followed by Dr. Heredia 14.Bilateral chronic leg edema with stasis dermatitis 15.Esophageal varices with fatty liver 16.Generalized osteoarthritis, hips and knees 17.Left radial fracture, 08/[address] Mayen 18. Maxillary fracture, Dr. Gill PLAN: 1. Admit the patient 2. Slow IV fluids 3. Watch for fluid overload 4. Routine telemetry orders 5. 20mg Lasix 6. Elevate the legs 7. Continue the rest of the medications for now 8. The patient is DNI 9. Overall the patient's condition has been deteriorating with her aging process, has multiple medical problems. It is going to be very difficulty to control her fluid overload, is this mostly extravascular. Atrial fibrillation is not helping us at present time. No blood thinners for now. The patient does not want to be transferred to any other place. She wants to be treated at [facility]. Case discussed with the . TIME SPENT: More than 75 minutes. FAUSTO
--- NOTE | 2023-07-18 18:02 | ECHO2D ---
Date of Exam: 07/17/2023 Ordering Physician: DR. KASSIE MYERS Room #: 121 Reason for Echo: SOB, HX CAROTID STENOSIS, HX SVT, HX LBBB, CARDIOMEGALY, PLEURAL EFFUSION M-Mode Normal Adult Results LV Dimensions Normal Adult Results AoV Opening excursions >1.6 >1.6 LVEDD-base- 3.5-5.8 5.5 Ao root dimensions 2.0-3.7 3.0 LVESD-base- 3.1-4.6 L. Atrium dimensions 1.9-3.8 5.0 Post. Wall thickness 0.8-1.1 1.1 IV septum (thickness) 0.7-1.2 1.2 Post. Wall excursion 0.72-1.3 NORMAL Septal motion NORMAL Systolic motion R. Ventricular cavity 1.5-2.0 4.0 LVEF 60% 57% Paradoxical septal wall motion NORMAL 2-D : ENLARGED LEFT ATRIAL, RIGHT ATRIAL AND RIGHT VENTRICLE CAVITIES, NORMAL VALVES, NORMAL LEFT VENTRICLE SIZE AND LEFT VENTRICLE CONTRACTILITY--MILD PERICARDIAL EFFUSION, NO THROMBUS M-MODE: MV: NORMAL AV: NORMAL TV: NORMAL PV: CHAMBER SIZE: ENLARGED RIGHT VENTRICLE, RIGHT ATRIAL AND LEFT ATRIAL CAVITIES WALL MOTION: NORMAL PERICARDIUM: NORMAL INTERPRETATION: 1. BORDERLINE LEFT VENTRICLE HYPERTROPHY 2. ENLARGED LEFT ATRIAL, RIGHT ATRIAL AND RIGHT VENTRICLE CAVITIES 3. NORMAL LEFT VENTRICLE SIZE WITH LEFT VENTRICLE CONTRACTILITY 4. MILD TO MODERATE TRICUSPID REGURGITATION AND MITRAL REGURGITATION, MILD PERICARDIAL EFFUSION MTDD
[2023-07-18] MEDS: BACTROBAN TP SCH (18:49)
[2023-07-19] MEDS: SODIUM CHLORIDE 1,000 ML IV SCH (03:00)
[2023-07-19] MEDS: SYNTHROID PO SCH ×2 (05:21)
[2023-07-19] MEDS: PROTONIX IV IVP SCH ×2 (05:21→17:17)
[2023-07-19 06:18] LABS: BASOPHILS % (AUTO) 0.1 % (0.0-3.0); HEMATOCRIT 29.8 % (37.0-47.0); HEMOGLOBIN 8.8 g/dl (12.0-16.0); IMMATURE GRANULOCYTE # (AUTO) 0.1 (0.0-1.0); IMMATURE GRANULOCYTE % (AUTO) 0.5 % (0.0-5.0); LYMPHOCYTES # (AUTO) 0.2 K/uL (0.60-3.4); LYMPHOCYTES % (AUTO) 1.8 (10.0-50.0); MEAN CORPUSCULAR HEMOGLOBIN 29.4 pg (27.0-31.0); MEAN CORPUSCULAR HGB CONC 29.5 (31.8-35.4); MEAN CORPUSCULAR VOLUME 99.7 fl (81.0-99.0); MONOCYTES # (AUTO) 0.8 K/uL (0.4-2.0); MONOCYTES % (AUTO) 7.9 (0-10); NEUTROPHILS # (AUTO) 8.8 K/ul (2.0-6.9); NEUTROPHILS % (AUTO) 89.7 % (42.2-75.2); PLATELET COUNT 404 10^3/uL (140-440); RDW COEFFICIENT OF VARIATION 22.5 % (11.6-14.8); RED BLOOD COUNT 2.99 10^6/ul (4.20-5.40); WHITE BLOOD COUNT 9.84 K/ul (4.6-10.2)
[2023-07-19 06:34] LABS: ALANINE AMINOTRANSFERASE 64.4 U/L (0-35); ALBUMIN 3.15 g/dL (3.5-5.0); ALKALINE PHOSPHATASE 84.4 U/L (53-141); ASPARTATE AMINO TRANSFERASE 59.2 U/L (14-36); BILIRUBIN,TOTAL 0.31 mg/dL (0.2-1.3); CARBON DIOXIDE 18.5 mmol/L (22-30.0); CHLORIDE 106.3 mmol/L (98-107); CREATININE 3.08 mg/dL (0.60-1.30); POTASSIUM 4.88 mmol/L (3.5-5.1); SODIUM 133.9 mmol/L (134.5-145); TOTAL PROTEIN 6.35 g/dL (6.3-8.2)
[2023-07-19 06:44] LABS: BLOOD UREA NITROGEN 76.7 mg/dL (7-17); CALCIUM 5.5 mg/dL (8.4-10.2)
[2023-07-19 06:55] LABS: BEecf -2.1 (-2.0-3.0); COHb 2.8 (0.5-1.5); HCO3 24.5 (21-28); MetHb 0.9 (0-1.5); TCO2 26.1 (19-24); sO2 89.3 % (94-98); tHb 9.3 g/dl (11.7-17.4)
[2023-07-19 06:59] LABS: ABG PH 7.29 (7.35-7.45)
[2023-07-19] MEDS ORDERED: LASIX IVP ONE ×2 (08:20→11:16)
--- NOTE | 2023-07-19 08:58 | PN ---
DATE OF SERVICE: 07/17/23 SUBJECTIVE: This morning the patient seems to be doing a little better, she is eating her breakfast and talking. REVIEW OF SYSTEMS: CONSTITUTIONAL: No night sweats. No fatigue, malaise, lethargy. No fever or chills. HEENT: Eyes: No visual changes. No eye pain. No eye discharge. ENT: No runny nose. No epistaxis. No sinus pain. No sore throat. No odynophagia. No congestion. RESPIRATORY: No cough, no congestion. No hemoptysis. No shortness of breath. CARDIOVASCULAR: No angina symptoms. No CHF symptoms. No atypical chest pain for CAD. No palpitations. No PND. No orthopnea. GASTROINTESTINAL: No abdominal pain. No nausea or vomiting. No diarrhea or constipation. No hematemesis. No hematochezia. GENITOURINARY: No urgency. No frequency. No dysuria. No hematuria. No obstructive symptoms. No discharge. No pain. No significant abnormal bleeding. MUSCULOSKELETAL: No musculoskeletal pain; no joint swelling. NEUROLOGICAL: No headache. No neck pain. No syncope. No seizures. No dizziness. PSYCHIATRIC: Not anxious. No depression. No suicidal thoughts. No homicidal thoughts. SKIN: No rash. No lesions. No wounds. ENDOCRINE: No unexplained weight loss. No weight gain. HEMATOLOGIC/LYMPHATIC: No anemia. No purpura. No petechiae. No prolonged or excessive bleeding. No palpable lymph nodes. PHYSICAL EXAMINATION: VITAL SIGNS: Temperature 97.1, pulse 63, respiratory rate 18, blood pressure 88/52 and pulse ox 95% on Vapotherm HEENT: Head normocephalic, atraumatic. Eyes: Extraocular muscles are intact. Pupils are equal, round and reactive to light and accommodation. Ears: No lesions. Nose appeared normal. Throat: No exudate or erythema. NECK: Supple. No JVD, no carotid bruit. No lymphadenopathy or thyromegaly. LUNGS: Dry creps bilaterally. Clear to auscultation. Percussion note normal. Chest symmetrical. HEART: S1, S2, no S3. No murmurs. No cyanosis or clubbing. No ascites. Pulses: Dorsalis pedis and posterior tibial pulses +1 to +2 bilaterally. ABDOMEN: Protuberant. Soft. Nontender. Bowel sounds active. No CVA tenderness. No mass felt. EXTREMITIES: No edema. Full range of motion of all extremities, equal. NEUROLOGIC: No focal deficit. Cranial nerves II through XII are grossly intact. No headache. No double vision. SKIN: Not dry. Intact. Turgor - normal. Scaly. LYMPHATIC: No palpable lymph nodes/no lymphedema. MUSCULOSKELETAL: Normal joints with no swelling. Muscle tone is normal. LABS: Hgb 9.2, hct 31, WBC 8,900 normal differential, creatinine 2.1, BUN 65, potassium 4.7 ASSESSMENT: 1. Hypercapnic respiratory failure seems to be improved with Vapotherm 50% with pO2 66, pCo2 52, pH 7.31 which is improvement from blood gasses done yesterday 2. Edema, seems to be resolving 3. Renal azotemia seems to have worsened some, giving her Lasix. PLAN: 1. Continue steroids 2. I think the patient's respiratory status deteriorated because very likely chronic aspiration. The patient had chronic nausea for which she required several Zofran injections, so far in past 48 hours. 3. Patient discussed with the family seems to be critical but stable. TIME SPENT: More than 35 minutes. Plan and coordination of the patient's care discussed in the presence of nurse. FAUSTO
[2023-07-19] MEDS ORDERED: DECADRON IVP SCH (09:00)
[2023-07-19] MEDS ORDERED: COZAAR PO SCH (09:00)
[2023-07-19] MEDS: CORDARONE PO SCH (09:11)
[2023-07-19] MEDS: COREG PO SCH ×2 (09:11→17:54)
[2023-07-19] MEDS: CARDIZEM PO SCH ×2 (09:11→20:21)
[2023-07-19] MEDS: BACTROBAN TP SCH ×2 (09:11→20:22)
--- NOTE | 2023-07-19 09:24 | PN ---
DATE OF SERVICE: 07/16/23 SUBJECTIVE: The patient had respiratory status deteriorated this afternoon. The patient was seen in and exam, was in the room. She was in mild to moderate distress. REVIEW OF SYSTEMS: CONSTITUTIONAL: No night sweats. No fatigue, malaise, lethargy. No fever or chills. HEENT: Eyes: No visual changes. No eye pain. No eye discharge. ENT: No runny nose. No epistaxis. No sinus pain. No sore throat. No odynophagia. No congestion. RESPIRATORY: No cough, no congestion. No hemoptysis. No shortness of breath. CARDIOVASCULAR: No angina symptoms. No CHF symptoms. No atypical chest pain for CAD. No palpitations. No PND. No orthopnea. GASTROINTESTINAL: No abdominal pain. No nausea or vomiting. No diarrhea or constipation. No hematemesis. No hematochezia. GENITOURINARY: No urgency. No frequency. No dysuria. No hematuria. No obstructive symptoms. No discharge. No pain. No significant abnormal bleeding. MUSCULOSKELETAL: No musculoskeletal pain; no joint swelling. NEUROLOGICAL: No headache. No neck pain. No syncope. No seizures. No dizziness. PSYCHIATRIC: Not anxious. No depression. No suicidal thoughts. No homicidal thoughts. SKIN: No rash. No lesions. No wounds. ENDOCRINE: No unexplained weight loss. No weight gain. HEMATOLOGIC/LYMPHATIC: No anemia. No purpura. No petechiae. No prolonged or excessive bleeding. No palpable lymph nodes. PHYSICAL EXAMINATION: HEENT: Head normocephalic, atraumatic. Eyes: Extraocular muscles are intact. Pupils are equal, round and reactive to light and accommodation. Ears: No lesions. Nose appeared normal. Throat: No exudate or erythema. NECK: Supple. No JVD, no carotid bruit. No lymphadenopathy or thyromegaly. LUNGS: Decreased breath sounds bilaterally with mild wheeze. Cachectic Clear to auscultation. Percussion note normal. Chest symmetrical. HEART: Sinus rhythm 70-80 per minute. S1, S2, no S3. No murmurs. No cyanosis or clubbing. No ascites. Pulses: Dorsalis pedis and posterior tibial pulses +1 to +2 bilaterally. ABDOMEN: Soft. Nontender. Bowel sounds active. No CVA tenderness. No mass felt. EXTREMITIES: Edema was a lot less. Full range of motion of all extremities, equal. NEUROLOGIC: No focal deficit. Cranial nerves II through XII are grossly intact. No headache. No double vision. SKIN: Not dry. Intact. Turgor - normal. LYMPHATIC: No palpable lymph nodes/no lymphedema. MUSCULOSKELETAL: Normal joints with no swelling. Muscle tone is normal. LABS: ABG showed acute respiratory acidosis compensate parically with hypercapnia with pO2 of 77 PLAN: 1. Continue Vapotherm, steroids and IV Lasix 2. Give Morphine Sulfate Family especially the and explained that the patient's condition is critical, could be from aspiration. They want DNI. it is to be added that the patient has pulmomary hypertension and chronic lung disease along with biventricular failure. PROGNOSIS: Poor. TIME SPENT: More than 35 minutes. Plan and coordination of the patient's care discussed in the presence of nurse. FAUSTO
[2023-07-19] MEDS: ULTRAM PO PRN (10:11)
--- NOTE | 2023-07-19 10:54 | PN ---
DATE OF SERVICE: 07/18/23 SUBJECTIVE: The patient was seen and examined today. The patient had mild distress in the morning. She was given steroids, IV Lasix. The patient's kidney functions have been deteriorating to some extent. Creatinine now is 2.8 and BUN 71. ABG this morning showed pO2 of 63, pCo2 58, pH 7.27 on 50% Vapotherm. After that the patient had Hinkle catheter because the bladder scanned showed a 400cc of urine in the bladder. She is going to be on the IV fluids increased to 100cc per hour now. The patient's condition overall seems to be deteriorating with the worsening of her kidney functions and pulmonary functions. The patient is still in sinus rhythm. Talked to the patient and she was oriented to time, place and person. She wants DNR. I am going to talk to the this afternoon. Already talked to the patient that I will be leaving town tomorrow and she will be taken care of by the Nurse Practitioner and she is agreeable. More less now she wants comfort measures. Hospice hasn't been discussed with the patient yet. ASSESSMENT: 1. Hypercapnic respiratory failure with history of pulmonary hypertension and chronic lung disease 2. Biventricular heart failure with moderate tricuspid regurgitation and mitral regurgitation with enlarged LR cavity and LA cavity and borderline LV cavity 3. Acute renal failure with history of chronic kidney disease, followed by Dr. Burton 4. Chronic anemia, followed by Animal Husbandry Professor/Oncologist 5. History of GI bleed, recurrent from AV malformation in the stomach with esophageal varices followed by Dr. Basurto 6. Paroxysmal atrial fibrillation 7. History of systolic/diastolic congestive heart failure followed by Dr. Lopez 8. Cardiac catheterization done in June 2022 9. CREST syndrome now with pulmonary hypertension 10.Paget's disease 11.Hypothyroidism 12.Hypertension 13.Dyslipidemia 14.Compression fraction L4 and T7 15.Severe generalized osteoarthritis involving hips and knees 16.Bilateral chronic leg edema with stasis dermatitis 17.History of neuropathy 18.Left foot partial amputation by Dr. Liu 19.History of maxillary fracture followed by Dr. Gill, status post surgery 20.History of left radial fracture L22 followed by Dr. Mayen 21.Bilateral shoulder osteoarthritis 22.Morbid obesity The patient is DNR. Discussed with the and the patient. Talked to the this afternoon, he came to the clinic and we had long discussion. The doesn't want any extraordinary measures. The also didn't want any extraordinary measures. The patient's prognosis is poor considering the patient's respiratory failure, renal failure and congestive heart failure with inability to swallow with chronic aspiration with weakness with intermittent atrial fibrillation. The patient has history of intermittent paroxysmal atrial fibrillation and has never been on blood thinner because of her recurrent GI bleed requiring repeated blood transfusion now she is on Procrit shot followed by Animal Husbandry Professor. PROGNOSIS: POOR TIME SPENT: More than 35 minutes. Plan and coordination of the patient's care discussed in the presence of nurse. FAUSTO
[2023-07-19] MEDS ORDERED: CALCIUM GLUCONATE 10% IVP STA (11:14)
--- NOTE | 2023-07-19 11:24 | PN ---
DATE OF SERVICE: 07/19/23 SUBJECTIVE: The patient was seen this morning. The patient is up right, talking and oriented to time, place and person. The is in the room. She looks better but her kidney function has deteriorated some. She has hypoproteinemia along with calcium likely from malnutrition. She is not able to eat anything since yesterday. The patient's lack of nutrition for several days now, multiple medical problems, hypoproteinemia, hypocalcemia. The patient is going to be hard to diurese. She is going to hold fluid. REVIEW OF SYSTEMS: CONSTITUTIONAL: No night sweats. No fatigue, malaise, lethargy. No fever or chills. HEENT: Eyes: No visual changes. No eye pain. No eye discharge. ENT: No runny nose. No epistaxis. No sinus pain. No sore throat. No odynophagia. No congestion. RESPIRATORY: No cough, no congestion. No hemoptysis. No shortness of breath. CARDIOVASCULAR: No angina symptoms. No CHF symptoms. No atypical chest pain for CAD. No palpitations. No PND. No orthopnea. GASTROINTESTINAL: No abdominal pain. No nausea or vomiting. No diarrhea or constipation. No hematemesis. No hematochezia. GENITOURINARY: No urgency. No frequency. No dysuria. No hematuria. No obstructive symptoms. No discharge. No pain. No significant abnormal bleeding. MUSCULOSKELETAL: No musculoskeletal pain; no joint swelling. NEUROLOGICAL: No headache. No neck pain. No syncope. No seizures. No dizziness. PSYCHIATRIC: Not anxious. No depression. No suicidal thoughts. No homicidal thoughts. SKIN: No rash. No lesions. No wounds. ENDOCRINE: No unexplained weight loss. No weight gain. HEMATOLOGIC/LYMPHATIC: No anemia. No purpura. No petechiae. No prolonged or excessive bleeding. No palpable lymph nodes. PHYSICAL EXAMINATION: HEENT: Head normocephalic, atraumatic. Eyes: Extraocular muscles are intact. Pupils are equal, round and reactive to light and accommodation. Ears: No lesions. Nose appeared normal. Throat: No exudate or erythema. NECK: Supple. No JVD, no carotid bruit. No lymphadenopathy or thyromegaly. LUNGS: Poor air entry bilaterally with dry crepitation. Percussion note normal. Chest symmetrical. HEART: S1, S2, no S3. No murmurs. No cyanosis or clubbing. No ascites. Pulses: Dorsalis pedis and posterior tibial pulses +1 to +2 bilaterally. ABDOMEN: Soft. Nontender. Bowel sounds active. No CVA tenderness. No mass felt. EXTREMITIES: Trace edema. Full range of motion of all extremities, equal. NEUROLOGIC: No focal deficit. Cranial nerves II through XII are grossly intact. No headache. No double vision. SKIN: Not dry. Intact. Turgor - normal. LYMPHATIC: No palpable lymph nodes/no lymphedema. MUSCULOSKELETAL: Normal joints with no swelling. Muscle tone is normal. LABS: Creatinine more than 3, BUN 70, Potassium 5.6 yesterday was given Kayexalate. ASSESSMENT: 1. Respiratory failure on high flow oxygen. Hypercapnic, respiratory failure distribution is chronic aspiration along with history of pulmonary hypertension and biventricular failure. 2. Biventricular failure, mainly right ventricular failure. Evidence of portal hypertension with history esophageal varices and bilateral leg edema. 3. Renal failure 4. Paroxysmal atrial fibrillation 5. Morbid obesity 6. History of dyslipidemia 7. History of CREST syndrome 8. History of Paget's disease PLAN: 1. Supportive measures 2. Lasix was given, to combat fluid retention 3. The patient's hasn't had much to eat for past couple of days. Case discussed with Hospitalist. The patient is going to be transferred to Hospitalist service because I am going out of town. The family is agreeable, I already talked to them about it. The patient is DNR. PROGNOSIS: POOR TIME SPENT: More than 35 minutes. Plan and coordination of the patient's care discussed in the presence of nurse. FAUSTO
--- NOTE | 2023-07-19 11:39 | PCM.PROG ---
Date/Time Seen Date Seen by Provider: 07/19/23 Time Seen by Provider: 11:00 Provider Provider: Concepcion Castro [facility], [facility] Chief Complaint Chief Complaint: CHF, CAROL Subjective Subjective: This provider will assume care of this patient today at [address] Brandon Szymanski. Son, daughter, and at bedside. Patient was admitted with worsening edema, CAROL. She went into respiratory failure. CT chest showed pleural effusions. BNP elevated. Calcium low. Pt is now on vapotherm at 40L, still showing hypoxia on ABG. She's been on NS at 100 ml/hr and getting about 20 mg IVP lasix daily. She has had little output since. Cr continuing to worsen. 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 She has hx of systolic/diastolic heart failure as well. Pt has not been eating and drinking well. She states although her swelling is better since admission, her breathing is progressively worsening. Objective Appearance: Positive Alert and Oriented x3, Ill-Appearing and Obese Chest/Lungs: Positive Other (+diminished, poor effort, wearing vapotherm at 40L. ) Heart: Positive Irregular Rhythm and Other (2+ pitting edema to knees bilaterally, close to baseline per family. ) GI/: Positive Soft, Nontender and Bowel Sounds Normal Neurological: Positive Cranial Nerves Intact, Alert, Oriented and Other (+deconditioned, weak) Additional Findings: Lips dry. Lower ext with evidence of chronic venous stasis changes. Vital Signs Vital Signs: Vital Signs: Last 24 Hours 07/18/23 13:00 07/18/23 14:00 07/18/23 14:00 Temperature 98.0 F Temperature Source Oral Pulse Rate 76 Respiratory Rate 18 Blood Pressure 112/72 Blood Pressure Mean 85 Blood Pressure Location Left Arm Blood Pressure Position O2 Sat by Pulse Oximetry 93 L 93 L Oxygen Delivery Method Vapo Therm Oxygen Flow Rate 40 Fraction of Inspired Oxygen (FIO2) 50 50 Weight Telemetry Type Remote Telemetry Telemetry Monitoring Continues Telemetry Heart Rate 67 Telemetry SPO2 93 EKG MN Interval 0.20 EKG QRS Interval 0.11 H Telemetry Strip Reading NSR with BBB 07/18/23 14:00 07/18/23 17:25 07/18/23 17:26 Temperature Temperature Source Pulse Rate Respiratory Rate Blood Pressure Blood Pressure Mean Blood Pressure Location Blood Pressure Position O2 Sat by Pulse Oximetry 93 L 92 L Oxygen Delivery Method Vapo Therm Vapo Therm Oxygen Flow Rate Fraction of Inspired Oxygen (FIO2) 50 50 Weight Telemetry Type Telemetry Monitoring Telemetry Heart Rate Telemetry SPO2 EKG MN Interval EKG QRS Interval Telemetry Strip Reading 07/18/23 17:50 07/18/23 18:00 07/18/23 18:00 Temperature 98.3 F Temperature Source Temporal Artery Scan Pulse Rate 80 Respiratory Rate 22 H Blood Pressure 124/62 Blood Pressure Mean 82 Blood Pressure Location Left Arm Blood Pressure Position O2 Sat by Pulse Oximetry 93 L Oxygen Delivery Method Vapo Therm Oxygen Flow Rate 40 Fraction of Inspired Oxygen (FIO2) 50 50 Weight 176 lb 4 oz Telemetry Type Telemetry Monitoring Telemetry Heart Rate Telemetry SPO2 EKG MN Interval EKG QRS Interval Telemetry Strip Reading 07/18/23 19:00 07/18/23 20:00 07/18/23 20:00 Temperature Temperature Source Pulse Rate Respiratory Rate Blood Pressure Blood Pressure Mean Blood Pressure Location Blood Pressure Position O2 Sat by Pulse Oximetry 92 L 92 L Oxygen Delivery Method Vapo Therm Oxygen Flow Rate Fraction of Inspired Oxygen (FIO2) 50 50 Weight Telemetry Type Remote Telemetry Telemetry Monitoring Continues Telemetry Heart Rate 77 Telemetry SPO2 91 L EKG MN Interval 0.20 EKG QRS Interval 0.09 Telemetry Strip Reading SR 07/18/23 20:00 07/18/23 21:20 07/18/23 22:00 Temperature 97.6 F Temperature Source Temporal Artery Scan Pulse Rate 77 Respiratory Rate 17 14 Blood Pressure 103/60 Blood Pressure Mean 74 Blood Pressure Location Left Arm Blood Pressure Position Supine O2 Sat by Pulse Oximetry 92 L 91 L Oxygen Delivery Method Vapo Therm Vapo Therm Oxygen Flow Rate 40 Fraction of Inspired Oxygen (FIO2) 50 50 Weight Telemetry Type Telemetry Monitoring Telemetry Heart Rate Telemetry SPO2 EKG MN Interval EKG QRS Interval Telemetry Strip Reading 07/19/23 00:27 07/19/23 01:53 07/19/23 02:00 Temperature Temperature Source Pulse Rate 78 Respiratory Rate 16 Blood Pressure Blood Pressure Mean Blood Pressure Location Blood Pressure Position O2 Sat by Pulse Oximetry 94 L 93 L Oxygen Delivery Method Vapo Therm Oxygen Flow Rate 40 Fraction of Inspired Oxygen (FIO2) 50 50 Weight Telemetry Type Remote Telemetry Telemetry Monitoring Continues Telemetry Heart Rate 79 Telemetry SPO2 92 L EKG MN Interval 0.19 EKG QRS Interval 0.11 H Telemetry Strip Reading SR W/ BBB 07/19/23 05:05 07/19/23 05:05 07/19/23 05:25 Temperature 98.4 F Temperature Source Temporal Artery Scan Pulse Rate 72 Respiratory Rate 20 Blood Pressure 107/60 Blood Pressure Mean 75 Blood Pressure Location Left Arm Blood Pressure Position Supine O2 Sat by Pulse Oximetry 96 93 L 93 L Oxygen Delivery Method Vapo Therm Vapo Therm Oxygen Flow Rate 40 Fraction of Inspired Oxygen (FIO2) 50 50 50 Weight Telemetry Type Telemetry Monitoring Telemetry Heart Rate Telemetry SPO2 EKG MN Interval EKG QRS Interval Telemetry Strip Reading 07/19/23 05:40 07/19/23 07:00 07/19/23 08:00 Temperature Temperature Source Pulse Rate Respiratory Rate 17 Blood Pressure Blood Pressure Mean Blood Pressure Location Blood Pressure Position O2 Sat by Pulse Oximetry Oxygen Delivery Method Vapo Therm Oxygen Flow Rate 40 Fraction of Inspired Oxygen (FIO2) 50 Weight 178 lb 5 oz Telemetry Type Remote Telemetry Telemetry Monitoring Continues Telemetry Heart Rate 80 Telemetry SPO2 94 EKG MN Interval 0.24 H EKG QRS Interval 0.13 H Telemetry Strip Reading SR with 1 degree AVB and BBB 07/19/23 09:55 07/19/23 10:00 07/19/23 10:00 Temperature 98.2 F Temperature Source Tympanic Pulse Rate 89 Respiratory Rate 13 Blood Pressure 116/71 Blood Pressure Mean 86 Blood Pressure Location Left Arm Blood Pressure Position Sitting O2 Sat by Pulse Oximetry 90 L 91 L 91 L Oxygen Delivery Method Vapo Therm Vapo Therm Oxygen Flow Rate 40 Fraction of Inspired Oxygen (FIO2) 50 50 50 Weight Telemetry Type Telemetry Monitoring Telemetry Heart Rate Telemetry SPO2 EKG MN Interval EKG QRS Interval Telemetry Strip Reading 07/19/23 11:12 Temperature Temperature Source Pulse Rate Respiratory Rate Blood Pressure Blood Pressure Mean Blood Pressure Location Blood Pressure Position O2 Sat by Pulse Oximetry 89 L Oxygen Delivery Method Oxygen Flow Rate Fraction of Inspired Oxygen (FIO2) 50 Weight Telemetry Type Telemetry Monitoring Telemetry Heart Rate Telemetry SPO2 EKG MN Interval EKG QRS Interval Telemetry Strip Reading Lab Results Lab Results: Lab Results: Last 24 Hours 07/19/23 07/19/23 07/19/23 06:40 06:12 06:00 WBC 9.84 RBC 2.99 L Hgb 8.8 L Hct 29.8 L MCV 99.7 H MCH 29.4 MCHC 29.5 L RDW Coeff of [place] 22.5 H Plt Count 404 Immature Gran % (Auto) 0.5 Neut % (Auto) 89.7 H Lymph % (Auto) 1.8 L [place] % (Auto) 7.9 Eos % (Auto) 0.0 Baso % (Auto) 0.1 Neut # (Auto) 8.8 H Lymph # (Auto) 0.2 L [place] # (Auto) 0.8 Eos # (Auto) 0.0 Baso # (Auto) 0.0 Immature Gran # (Auto) 0.1 Puncture Site [employer] Excess -2.1 L O2 Saturation 89.3 L ABG pH 7.29 L* ABG pCO2 51.0 H ABG pO2 64.0 L ABG HCO3 24.5 ABG Total CO2 26.1 H [place] Test Pos Hemoglobin 0.9 Oxyhemoglobin 91.0 L Carboxyhemoglobin 2.8 H Total Hemoglobin 9.3 L O2 Delivery Device Vapotherm FiO2 % 50.0 Sodium 133.9 L Potassium 4.88 Chloride 106.3 Carbon Dioxide 18.5 L Anion Gap 13.98 BUN 76.7 H* Creatinine 3.08 H Estimated GFR (MDRD) 15.00 BUN/Creatinine Ratio 24.90 Glucose 103.0 Calcium 5.50 L* Total Bilirubin 0.31 AST 59.2 H ALT 64.4 H Alkaline Phosphatase 84.4 Total Protein 6.35 Albumin 3.15 L Globulin 3.20 Albumin/Globulin Ratio 0.98 Additional Comments Additional Comments: I have independently reviewed and interpreted the labs/EKGs/imaging ordered during this hospital stay. I have reviewed outside records that are available in our EMR that pertain to medical stay including imaging/notes/labs from previous visits. Active Medications Active Medications: Medications Generic Name Dose Route Start Last Admin Trade Name Freq PRN Reason Stop Dose Admin Acetaminophen 325 mg 07/15/23 16:01 Acetaminophen 325 Mg Tablet PO ONCE PRN MILD PAIN Hydrocodone Bitart/Acetaminophen 1 tab 07/15/23 16:06 07/16/23 02:35 Hydrocodone Bit/Acetaminophen 5/325 Mg Tablet PO 1 tab Q4-6H PRN Administration Pain Amiodarone HCl 200 mg 07/16/23 09:00 07/19/23 09:11 Amiodarone Hcl 200 Mg Tablet PO 200 mg DAILY CATHERINE Administration Calcium Gluconate 1,000 mg 07/19/23 11:14 Calcium Gluconate 10% 1,000 Mg/10 Ml Vial IVP 07/19/23 11:15 ONCE STA Carvedilol 6.25 mg 07/16/23 09:00 07/19/23 09:11 Carvedilol 6.25 Mg Tablet PO 6.25 mg [id number] CATHERINE Administration Dexamethasone Sodium Phosphate 4 mg 07/19/23 09:00 07/19/23 09:49 Dexamethasone Sod Phos 4 Mg/Ml Inj IVP 4 mg DAILY CATHERINE Administration Diltiazem HCl 120 mg 07/16/23 09:00 07/19/23 09:11 Diltiazem Hcl 60 Mg Tablet PO 120 mg BID CATHERINE Administration Diphenoxylate HCl/Atropine 1 tab 07/15/23 16:01 Diphenoxylate/Atropine 2.5/0.025 Mg Tablet PO TID PRN Diarrhea Levothyroxine Sodium 100 mcg 07/16/23 06:00 07/19/23 05:21 Levothyroxine Sodium 100 Mcg Tablet PO 100 mcg QDAC2 CATHERINE Administration Levothyroxine Sodium 25 mcg 07/16/23 06:00 07/19/23 05:21 Levothyroxine Sodium 25 Mcg Tablet PO 25 mcg QDAC2 CATHERINE Administration Lidocaine 1 applic 07/16/23 08:41 Lidocaine Ointment 5% TP BID PRN Hemorrhoids Morphine Sulfate 2 - 3 mg 07/16/23 15:26 07/18/23 02:29 Morphine Sulfate 4 Mg/Ml Syringe IVP 2 mg Q4H PRN Administration Increased respiratory effort Mupirocin 1 applic 07/18/23 18:30 07/19/23 09:11 Mupirocin 22 Gm Oint TP 07/21/23 18:29 1 applic BID CATHERINE Administration Ondansetron HCl 4 mg 07/15/23 16:06 07/16/23 20:49 Ondansetron Hcl 4 Mg Tab.Rapdis PO 4 mg TID PRN Administration Nausea / Vomiting Ondansetron HCl 4 mg 07/16/23 15:32 Ondansetron Hcl/Pf 4 Mg/2 Ml Sdv IVP Q4H PRN Nausea / Vomiting Pantoprazole Sodium 40 mg 07/15/23 17:00 07/16/23 05:30 Pantoprazole Sodium 40 Mg Tablet.Dr PO 40 mg BIDAC2 CATHERINE Administration Pantoprazole Sodium 40 mg 07/17/23 06:00 07/19/23 05:21 Pantoprazole Sodium 40 Mg Vial IVP 40 mg Q12H CATHERINE Administration Sodium Chloride 1 syr 07/18/23 19:12 0.9% Sodium Chloride 10 Ml Disp.Syrin IVF PRN PRN FLUSHING Tramadol HCl 50 mg 07/15/23 16:01 07/19/23 10:11 Tramadol Hcl 50 Mg Tablet PO 50 mg BID PRN Administration Pain Plan Plan: 1. Acute hypoxic respiratory failure with respiratory acidosis in setting of pulmonary hypertension and diastolic heart failure - Per echo EF now preserved. CT chest showing mild-moderate pleural effusions. BNP elevated from baseline. Cont vapotherm to maintain SpO2. RT consult. Stop fluids. Received lasix 20 mg IVP this morning. Give 20 mg ivp now. Will monitor output this afternoon and if increased output, will continue with lasix 40 q8hrs. Stop dexamethasone. 2. Diastolic heart failure exacerbation - Plan as above. 3. CAROL, stage 2 - Worsening despite fluids/lasix regimen. Will trial stopping fluids, add lasix 20 mg now, monitor I&Os, will continue with lasix 40 q8hrs. Repeat BMP this evening. Hold losartan. Fena not ordered since she has received fluids and lasix up to this point. Change morphine to fentanyl in setting of CAROL. 4. Hypocalcemia - Worsening. Corrected with albumin to 6.2. Calcium gluconate 1 gm ordered, repeat tomorrow if needed. 5. Transaminitis - Likely in setting of heart failure congestion. Continue to monitor. 6. Chronic anemia - hgb has been stable. Has hx of AVM bleeds. 7. A fib - Cannot tolerate blood thinner with hx of GI bleeds. Cont amiodarone. 8. Hypothyroidism - Cont home meds 9. Venous stasis dermatitis - Chronic. Consider silvio hose once patient feeling better. 10. Hyperlipidemia - Cont home meds 11. GERD - Cont home meds Discussed with Dr. Jordan Szymanski in detail. Also spoke with family in detail. We discussed her worsening condition from a respiratory status and her worsening renal failure. is adamant she does not want to wear a mask (bipap/cpap) of any kind. They all agree she wants DNR limited, no cpr or intubation. Discussed her condition is critical with poor outlook. We are going to try some medication changes to see if there is any improvement. Discussed we could potentially worsen her renal function since her Cr is now 3, but it has worsened daily up until this point. They are all in agreement. Discussed if she deteriorates further, gasping for air, etc, we will reevaluate our treatment plan. Advanced care planning - 5 minutes spent discussing code status. Review Statement Review Statement: I have personally discussed and reviewed the patient's visit/currently labs/imaging/decision making with Dr. Szymanski, my supervising attending. Greater that 50 minutes spent with patient, 50% of the time spent with this patient was devoted to counseling and coordination of care.
[2023-07-19] MEDS ORDERED: CALCIUM GLUCONATE 1,000 MG/100 ML NS 1,000 MG/100 ML BAG IV ONE (12:00)
[2023-07-19] MEDS: MORPHINE 4 MG/ML SYRINGE IVP PRN (13:35)
[2023-07-19] MEDS ORDERED: SUBLIMAZE IVP PRN (14:19)
[2023-07-19] MEDS: LASIX IVP SCH ×2 (21:41→21:44)
[2023-07-19 23:31] LABS: CHLORIDE 107.3 mmol/L (98-107); CREATININE 2.96 mg/dL (0.60-1.30); GLUCOSE 106.8 mg/dL (74-106); POTASSIUM 5.32 mmol/L (3.5-5.1); SODIUM 135.5 mmol/L (134.5-145)
[2023-07-19 23:38] LABS: BLOOD UREA NITROGEN 90.6 mg/dL (7-17)
[2023-07-19 23:39] LABS: CALCIUM 5.64 mg/dL (8.4-10.2)
[2023-07-20 06:29] LABS: BASOPHILS % (AUTO) 0.1 % (0.0-3.0); HEMATOCRIT 30.3 % (37.0-47.0); HEMOGLOBIN 9.1 g/dl (12.0-16.0); IMMATURE GRANULOCYTE # (AUTO) 0.1 (0.0-1.0); IMMATURE GRANULOCYTE % (AUTO) 0.4 % (0.0-5.0); LYMPHOCYTES # (AUTO) 0.3 K/uL (0.60-3.4); LYMPHOCYTES % (AUTO) 2.5 (10.0-50.0); MEAN CORPUSCULAR HEMOGLOBIN 29.6 pg (27.0-31.0); MEAN CORPUSCULAR VOLUME 98.7 fl (81.0-99.0); MONOCYTES % (AUTO) 8.4 (0-10); NEUTROPHILS # (AUTO) 10.4 K/ul (2.0-6.9); NEUTROPHILS % (AUTO) 88.6 % (42.2-75.2); PLATELET COUNT 479 10^3/uL (140-440); RDW COEFFICIENT OF VARIATION 22.8 % (11.6-14.8); RED BLOOD COUNT 3.07 10^6/ul (4.20-5.40); WHITE BLOOD COUNT 11.71 K/ul (4.6-10.2)
[2023-07-20] MEDS: SYNTHROID PO SCH ×2 (06:40)
[2023-07-20 06:41] LABS: ALANINE AMINOTRANSFERASE 50.7 U/L (0-35); ALBUMIN 3.28 g/dL (3.5-5.0); ALKALINE PHOSPHATASE 87.3 U/L (53-141); ASPARTATE AMINO TRANSFERASE 38.8 U/L (14-36); BILIRUBIN,TOTAL 0.43 mg/dL (0.2-1.3); CARBON DIOXIDE 15.8 mmol/L (22-30.0); CHLORIDE 107.9 mmol/L (98-107); CREATININE 3.18 mg/dL (0.60-1.30); GLUCOSE 88.4 mg/dL (74-106); POTASSIUM 4.56 mmol/L (3.5-5.1); SODIUM 136.7 mmol/L (134.5-145); TOTAL PROTEIN 6.38 g/dL (6.3-8.2)
[2023-07-20 06:50] LABS: BLOOD UREA NITROGEN 95.1 mg/dL (7-17); CALCIUM 5.63 mg/dL (8.4-10.2)
[2023-07-20] MEDS: PROTONIX IV IVP SCH (06:54)
[2023-07-20 07:00] LABS: ANISOCYTOSIS 1+ (NOT PRESENT); HYPOCHROMASIA 2+ (NOT PRESENT)
[2023-07-20] MEDS ORDERED: CALCIUM GLUCONATE 1,000 MG/100 ML NS 1,000 MG/100 ML BAG IV ONE (09:10)
[2023-07-20] MEDS ORDERED: LOPRESSOR IVP ONE (09:10)
[2023-07-20] MEDS: LASIX IVP SCH ×2 (09:12→13:59)
[2023-07-20] MEDS: BACTROBAN TP SCH (09:15)
[2023-07-20] MEDS: COREG PO SCH ×2 (09:39→16:26)
[2023-07-20] MEDS: CARDIZEM PO SCH (09:40)
[2023-07-20] MEDS: CORDARONE PO SCH (09:40)
--- NOTE | 2023-07-20 09:57 | PCM.PROG ---
Date/Time Seen Date Seen by Provider: 07/20/23 Time Seen by Provider: 08:15 Provider Provider[facility] FL[facility] Chief Complaint Chief Complaint: CHF, CAROL Subjective Subjective: Patient has been in a fib RVR with HR in 120s-130s this morning. She is still on vapotherm. Has had decent urine output, however BUN increasing. Patient refused medications this morning. She was a difficult stick and required several attempts for a blood draw. Discussed with her treatment plan options including continuing to treat her condition, blood draws, etc vs transitioning to comfort measures. She said multiple times "I just can't say." We discussed her quaker beliefs and she is a catholic and has been praying for answers and peace. at bedside. He states she asked him this morning if she was still alive. He is aware of her poor condition. Objective Appearance: Positive Alert and Oriented x3, Ill-Appearing, Obese and Other (fatigued ) Chest/Lungs: Positive Other (+diminished, poor effort, wearing vapotherm at 40L, 100% FIO2. ) Heart: Positive Irregular Rhythm, Tachycardia and Other (2+ pitting edema to knees bilaterally) GI/: Positive Soft, Nontender and Bowel Sounds Normal Neurological: Positive Cranial Nerves Intact, Alert, Oriented and Other (+deconditioned, weak) Additional Findings: Lips dry. Lower ext with evidence of chronic venous stasis changes. Vital Signs Vital Signs: Vital Signs: Last 24 Hours 07/19/23 09:55 07/19/23 10:00 07/19/23 10:00 Temperature 98.2 F Temperature Source Tympanic Pulse Rate 89 Respiratory Rate 13 Blood Pressure 116/71 Blood Pressure Mean 86 Blood Pressure Location Left Arm Blood Pressure Position Sitting O2 Sat by Pulse Oximetry 90 L 91 L 91 L Oxygen Delivery Method Vapo Therm Vapo Therm Oxygen Flow Rate 40 Fraction of Inspired Oxygen (FIO2) 50 50 50 Weight Telemetry Type Telemetry Monitoring Irregular Telemetry Rate (Approximate) Telemetry Heart Rate Telemetry SPO2 EKG TN Interval EKG QRS Interval Telemetry Strip Reading 07/19/23 11:12 07/19/23 13:00 07/19/23 14:00 Temperature 98.4 F Temperature Source Tympanic Pulse Rate 82 Respiratory Rate 14 Blood Pressure 121/74 Blood Pressure Mean 89 Blood Pressure Location Left Arm Blood Pressure Position Sitting O2 Sat by Pulse Oximetry 89 L 91 L Oxygen Delivery Method Vapo Therm Oxygen Flow Rate 40 Fraction of Inspired Oxygen (FIO2) 50 60 Weight Telemetry Type Remote Telemetry Telemetry Monitoring Continues Irregular Telemetry Rate (Approximate) Telemetry Heart Rate 84 Telemetry SPO2 92 L EKG TN Interval 0.22 H EKG QRS Interval 0.13 H Telemetry Strip Reading SR with 1st degree AVB and BBB 07/19/23 14:00 07/19/23 14:00 07/19/23 17:59 Temperature Temperature Source Pulse Rate Respiratory Rate Blood Pressure Blood Pressure Mean Blood Pressure Location Blood Pressure Position O2 Sat by Pulse Oximetry 92 L 92 L 91 L Oxygen Delivery Method Vapo Therm Oxygen Flow Rate Fraction of Inspired Oxygen (FIO2) 60 60 60 Weight Telemetry Type Telemetry Monitoring Irregular Telemetry Rate (Approximate) Telemetry Heart Rate Telemetry SPO2 EKG TN Interval EKG QRS Interval Telemetry Strip Reading 07/19/23 18:00 07/19/23 18:26 07/19/23 18:26 Temperature 97.6 F Temperature Source Tympanic Pulse Rate 86 Respiratory Rate 18 Blood Pressure 103/69 Blood Pressure Mean 80 Blood Pressure Location Right Arm Blood Pressure Position Supine O2 Sat by Pulse Oximetry 92 L 90 L Oxygen Delivery Method Vapo Therm Vapo Therm Oxygen Flow Rate 40 Fraction of Inspired Oxygen (FIO2) 60 60 100 Weight Telemetry Type Telemetry Monitoring Irregular Telemetry Rate (Approximate) Telemetry Heart Rate Telemetry SPO2 EKG TN Interval EKG QRS Interval Telemetry Strip Reading 07/19/23 19:00 07/19/23 19:44 07/19/23 20:00 Temperature Temperature Source Pulse Rate Respiratory Rate Blood Pressure Blood Pressure Mean Blood Pressure Location Blood Pressure Position O2 Sat by Pulse Oximetry 98 Oxygen Delivery Method Vapo Therm Vapo Therm Oxygen Flow Rate 40 Fraction of Inspired Oxygen (FIO2) 100 Weight Telemetry Type Remote Telemetry Telemetry Monitoring Continues Irregular Telemetry Rate (Approximate) 100-110 BPM Telemetry Heart Rate Telemetry SPO2 97 EKG TN Interval EKG QRS Interval 0.16 H Telemetry Strip Reading afib w/ rvr w/ bbb 07/19/23 21:14 07/19/23 21:36 07/20/23 01:00 Temperature 98.9 F Temperature Source Temporal Artery Scan Pulse Rate 106 H Respiratory Rate 17 Blood Pressure 102/65 Blood Pressure Mean 77 Blood Pressure Location Right Arm Blood Pressure Position Supine O2 Sat by Pulse Oximetry 97 97 Oxygen Delivery Method Vapo Therm Oxygen Flow Rate 40 Fraction of Inspired Oxygen (FIO2) 60 100 Weight Telemetry Type Remote Telemetry Telemetry Monitoring Continues Irregular Telemetry Rate (Approximate) 110-120 BPM Telemetry Heart Rate Telemetry SPO2 96 EKG TN Interval EKG QRS Interval 0.15 H Telemetry Strip Reading AFIB W/ RVR W/ BBB 07/20/23 01:43 07/20/23 01:52 07/20/23 05:20 Temperature 98.8 F 98.8 F Temperature Source Temporal Artery Scan Oral Pulse Rate 118 H 120 H Respiratory Rate 16 18 Blood Pressure 102/68 108/71 Blood Pressure Mean 79 83 Blood Pressure Location Right Arm Right Arm Blood Pressure Position Supine Supine O2 Sat by Pulse Oximetry 97 96 96 Oxygen Delivery Method Vapo Therm Vapo Therm Oxygen Flow Rate 40 40 Fraction of Inspired Oxygen (FIO2) 100 100 100 Weight Telemetry Type Telemetry Monitoring Irregular Telemetry Rate (Approximate) Telemetry Heart Rate Telemetry SPO2 EKG TN Interval EKG QRS Interval Telemetry Strip Reading 07/20/23 06:00 07/20/23 06:00 07/20/23 06:10 Temperature Temperature Source Pulse Rate Respiratory Rate Blood Pressure Blood Pressure Mean Blood Pressure Location Blood Pressure Position O2 Sat by Pulse Oximetry 97 97 Oxygen Delivery Method Vapo Therm Oxygen Flow Rate 100 Fraction of Inspired Oxygen (FIO2) 100 Weight 173 lb 4.8 oz Telemetry Type Telemetry Monitoring Irregular Telemetry Rate (Approximate) Telemetry Heart Rate Telemetry SPO2 EKG TN Interval EKG QRS Interval Telemetry Strip Reading 07/20/23 07:00 Temperature Temperature Source Pulse Rate Respiratory Rate Blood Pressure Blood Pressure Mean Blood Pressure Location Blood Pressure Position O2 Sat by Pulse Oximetry Oxygen Delivery Method Oxygen Flow Rate Fraction of Inspired Oxygen (FIO2) Weight Telemetry Type Remote Telemetry Telemetry Monitoring Continues Irregular Telemetry Rate (Approximate) 120-130 BPM Telemetry Heart Rate Telemetry SPO2 93 EKG TN Interval EKG QRS Interval 0.16 H Telemetry Strip Reading AFIB WITH RVR AND BBB Lab Results Lab Results: Lab Results: Last 24 Hours 07/20/23 07/19/23 06:18 22:50 WBC 11.71 H RBC 3.07 L Hgb 9.1 L Hct 30.3 L MCV 98.7 MCH 29.6 MCHC 30.0 L RDW Coeff of Martha 22.8 H Plt Count 479 H Immature Gran % (Auto) 0.4 Neut % (Auto) 88.6 H Lymph % (Auto) 2.5 L [place] % (Auto) 8.4 Eos % (Auto) 0.0 Baso % (Auto) 0.1 Neut # (Auto) 10.4 H Lymph # (Auto) 0.3 L [place] # (Auto) 1.0 Eos # (Auto) 0.0 Baso # (Auto) 0.0 Immature Gran # (Auto) 0.1 Hypochromasia 2+ Anisocytosis 1+ Sodium 136.7 135.5 Potassium 4.56 5.32 H Chloride 107.9 H 107.3 H Carbon Dioxide 15.8 L 16.0 L Anion Gap 17.56 17.52 BUN 95.1 H* 90.6 H* Creatinine 3.18 H 2.96 H Estimated GFR (MDRD) 14.00 15.00 BUN/Creatinine Ratio 29.90 30.60 Glucose 88.4 106.8 H Calcium 5.63 L* 5.64 L* Total Bilirubin 0.43 AST 38.8 H ALT 50.7 H Alkaline Phosphatase 87.3 Total Protein 6.38 Albumin 3.28 L Globulin 3.10 Albumin/Globulin Ratio 1.05 Additional Comments Additional Comments: I have independently reviewed and interpreted the labs/EKGs/imaging ordered during this hospital stay. I have reviewed outside records that are available in our EMR that pertain to medical stay including imaging/notes/labs from previous visits. Active Medications Active Medications: Medications Generic Name Dose Route Start Last Admin Trade Name Freq PRN Reason Stop Dose Admin Acetaminophen 325 mg 07/15/23 16:01 Acetaminophen 325 Mg Tablet PO ONCE PRN MILD PAIN Hydrocodone Bitart/Acetaminophen 1 tab 07/15/23 16:06 07/16/23 02:35 Hydrocodone Bit/Acetaminophen 5/325 Mg Tablet PO 1 tab Q4-6H PRN Administration Pain Amiodarone HCl 200 mg 07/16/23 09:00 07/20/23 09:40 Amiodarone Hcl 200 Mg Tablet PO Not Given DAILY CATHERINE Carvedilol 6.25 mg 07/16/23 09:00 07/20/23 09:39 Carvedilol 6.25 Mg Tablet PO Not Given BIDWM2 CATHERINE Diltiazem HCl 120 mg 07/16/23 09:00 07/20/23 09:40 Diltiazem Hcl 60 Mg Tablet PO Not Given BID CATHERINE Diphenoxylate HCl/Atropine 1 tab 07/15/23 16:01 Diphenoxylate/Atropine 2.5/0.025 Mg Tablet PO TID PRN Diarrhea Fentanyl Citrate 25 mcg 07/19/23 14:19 Fentanyl 50 Mcg/Ml Sdv IVP Q6HR PRN Air hunger Furosemide 40 mg 07/19/23 19:00 07/20/23 09:12 Furosemide Inj 40 Mg/4 Ml Vial IVP 40 mg Q8HR CATHERINE Administration Levothyroxine Sodium 100 mcg 07/16/23 06:00 07/20/23 06:40 Levothyroxine Sodium 100 Mcg Tablet PO Not Given QDAC2 CATHERINE Levothyroxine Sodium 25 mcg 07/16/23 06:00 07/20/23 06:40 Levothyroxine Sodium 25 Mcg Tablet PO Not Given QDAC2 CATHERINE Lidocaine 1 applic 07/16/23 08:41 Lidocaine Ointment 5% TP BID PRN Hemorrhoids Mupirocin 1 applic 07/18/23 18:30 07/20/23 09:15 Mupirocin 22 Gm Oint TP 07/21/23 18:29 1 applic BID CATHERINE Administration Ondansetron HCl 4 mg 07/15/23 16:06 07/16/23 20:49 Ondansetron Hcl 4 Mg Tab.Rapdis PO 4 mg TID PRN Administration Nausea / Vomiting Ondansetron HCl 4 mg 07/16/23 15:32 Ondansetron Hcl/Pf 4 Mg/2 Ml Sdv IVP Q4H PRN Nausea / Vomiting Pantoprazole Sodium 40 mg 07/15/23 17:00 07/16/23 05:30 Pantoprazole Sodium 40 Mg Tablet.Dr PO 40 mg BIDAC2 CATHERINE Administration Pantoprazole Sodium 40 mg 07/17/23 06:00 07/20/23 06:54 Pantoprazole Sodium 40 Mg Vial IVP 40 mg Q12H CATHERINE Administration Sodium Chloride 1 syr 07/18/23 19:12 0.9% Sodium Chloride 10 Ml Disp.Syrin IVF PRN PRN FLUSHING Sodium Chloride 1 syr 07/19/23 21:00 07/19/23 21:37 0.9% Sodium Chloride 10 Ml Disp.Syrin IVF 1 syr Q8HR CATHERINE Administration Tramadol HCl 50 mg 07/15/23 16:01 07/19/23 10:11 Tramadol Hcl 50 Mg Tablet PO 50 mg BID PRN Administration Pain Plan Plan: 1. Acute hypoxic respiratory failure with respiratory acidosis in setting of pulmonary hypertension and diastolic heart failure - Per echo EF now preserved. CT chest showing mild-moderate pleural effusions. BNP elevated from baseline. Cont vapotherm to maintain SpO2, increased FIO2 yesterday to maintain sats better. Doing better today, try to wean if able. RT consult. Cont lasix. M onitor output. 2. Diastolic heart failure exacerbation - Plan as above. 3. CAROL, stage 2 - BUN worsening but making good urine output, monitor I&Os, will continue with lasix 40 q8hrs. Hold losartan. Fena not ordered since she has received fluids and lasix up to this point. Change morphine to fentanyl in setting of CAROL. 4. Hypocalcemia - Worsening. Repeating Calcium gluconate 1 gm, repeat tomorrow if needed. 5. Transaminitis - Likely in setting of heart failure congestion. Continue to monitor. 6. Chronic anemia - hgb has been stable. Has hx of AVM bleeds. 7. A fib - Cannot tolerate blood thinner with hx of GI bleeds. Cont amiodarone. 8. Hypothyroidism - Cont home meds 9. Venous stasis dermatitis - Chronic. Consider silvio hose once patient feeling better. 10. Hyperlipidemia - Cont home meds 11. GERD - Cont home meds Discussed with Dr. Jordan Szymanski in detail. Patient not ready to transition to comfort measures at this point. Will continue trying to manage symptoms. Poor outcome expected. aware. Review Statement Review Statement: I have personally discussed and reviewed the patient's visit/currently labs /imaging/decision making with Dr. Szymanski, my supervising attending. Greater that 50 minutes spent with patient, 50% of the time spent with this patient was devoted to counseling and coordination of care.
[2023-07-20] MEDS ORDERED: ATIVAN IVP PRN (16:59)
--- NOTE | 2023-07-20 20:40 | PCM.PROG ---
Evaluated and spoke with patient and again around 1530. She states she does not want to take her medicines, eat, or get her vitals taken "because it won't help anything." She states her breathing is not improved and she does not feel well. Asked if it was ok with her to try to draw her labs again in the morning, she declines. "It won't make a difference." We discussed seeing how things go through the night and reevaluating again tomorrow. Advised her if at any time she does not want to pursue treatment of her condition and would just like to be comfortable to let us know. At 1639 I was notified by her nurse that she has decided to transition to comfort measures only. Hospice consult placed. They are unable to come until Saturday, possibly tomorrow. We will not delay her wishes. Ativan and fentanyl ordered prn. Will stop PO meds. Dr. Brandon Szymanski, PCP, notified of her wishes as well.
[2023-07-21] MEDS: SUBLIMAZE IVP PRN ×3 (00:39→20:45)
[2023-07-21 05:15] VITALS: TEMP 98
--- NOTE | 2023-07-21 09:07 | PCM.PROG ---
Date/Time Seen Date Seen by Provider: 07/21/23 Time Seen by Provider: 08:30 Provider Provider: FLACA JARVIS [facility]-C[facility] Chief Complaint Chief Complaint: CHF, CAROL Subjective Subjective: Patient has required fentanyl and ativan on and off. She becomes very anxious and sob. She asks for more medicine during my evaluation this morning. She was also hypoxic through the night on 2L. Family at bedside. Hospice is coming to consult today or tomorrow. Objective Appearance: Positive Alert and Oriented x3, Ill-Appearing, Obese and Other (fatigued ) Chest/Lungs: Positive Other (+diminished, poor effort, increased RR ) Heart: Positive Irregular Rhythm, Tachycardia and Other (1-2+ pitting edema to knees bilaterally) GI/: Positive Soft, Nontender and Bowel Sounds Normal Neurological: Positive Cranial Nerves Intact, Alert, Oriented and Other (+deconditioned, weak) Additional Findings: Lips dry. Lower ext with evidence of chronic venous stasis changes. Vital Signs Vital Signs: Vital Signs: Last 24 Hours 07/20/23 09:55 07/20/23 09:55 07/20/23 10:00 Temperature 98.4 F Temperature Source Temporal Artery Scan Pulse Rate 121 H Respiratory Rate 18 Blood Pressure Blood Pressure Mean Blood Pressure Location Blood Pressure Position O2 Sat by Pulse Oximetry 97 97 97 Oxygen Delivery Method Vapo Therm Vapo Therm Oxygen Flow Rate 40 Fraction of Inspired Oxygen (FIO2) 100 100 100 Weight Telemetry Type Telemetry Monitoring Irregular Telemetry Rate (Approximate) Telemetry SPO2 EKG QRS Interval Telemetry Strip Reading 07/20/23 11:01 07/20/23 11:01 07/20/23 13:00 Temperature Temperature Source Pulse Rate Respiratory Rate Blood Pressure Blood Pressure Mean Blood Pressure Location Blood Pressure Position O2 Sat by Pulse Oximetry Oxygen Delivery Method Vapo Therm Oxygen Flow Rate Fraction of Inspired Oxygen (FIO2) 90 90 Weight Telemetry Type Remote Telemetry Telemetry Monitoring Continues Irregular Telemetry Rate (Approximate) 110-120 BPM Telemetry SPO2 EKG QRS Interval 0.15 H Telemetry Strip Reading afib w/ RVR and BBB 07/20/23 13:21 07/20/23 13:21 07/20/23 14:00 Temperature 98.6 F Temperature Source Tympanic Pulse Rate 113 H Respiratory Rate 23 H Blood Pressure 104/62 Blood Pressure Mean 76 Blood Pressure Location Left Arm Blood Pressure Position O2 Sat by Pulse Oximetry 97 94 L Oxygen Delivery Method Vapo Therm Vapo Therm Oxygen Flow Rate 40 Fraction of Inspired Oxygen (FIO2) 90 80 80 Weight Telemetry Type Telemetry Monitoring Irregular Telemetry Rate (Approximate) Telemetry SPO2 EKG QRS Interval Telemetry Strip Reading 07/20/23 14:32 07/20/23 14:32 07/20/23 15:28 Temperature Temperature Source Pulse Rate Respiratory Rate Blood Pressure Blood Pressure Mean Blood Pressure Location Blood Pressure Position O2 Sat by Pulse Oximetry 94 L 93 L Oxygen Delivery Method Vapo Therm Vapo Therm Oxygen Flow Rate Fraction of Inspired Oxygen (FIO2) 70 80 70 Weight Telemetry Type Telemetry Monitoring Irregular Telemetry Rate (Approximate) Telemetry SPO2 EKG QRS Interval Telemetry Strip Reading 07/20/23 17:44 07/20/23 18:00 07/20/23 19:00 Temperature 97.4 F L Temperature Source Tympanic Pulse Rate 102 H Respiratory Rate 32 H Blood Pressure Blood Pressure Mean Blood Pressure Location Blood Pressure Position O2 Sat by Pulse Oximetry 87 L 84 L Oxygen Delivery Method Nasal Cannula Nasal Cannula Oxygen Flow Rate 2 2 Fraction of Inspired Oxygen (FIO2) Weight Telemetry Type Remote Telemetry Telemetry Monitoring Continues Irregular Telemetry Rate (Approximate) 100-110 BPM Telemetry SPO2 86 L EKG QRS Interval 0.17 H Telemetry Strip Reading afib w/ rvr w/ bbb 07/20/23 19:48 07/20/23 20:00 07/20/23 21:31 Temperature 97.8 F Temperature Source Temporal Artery Scan Pulse Rate 106 H Respiratory Rate 17 Blood Pressure 90/59 L Blood Pressure Mean 69 Blood Pressure Location Left Arm Blood Pressure Position Supine O2 Sat by Pulse Oximetry 90 L 86 L Oxygen Delivery Method Nasal Cannula Nasal Cannula Nasal Cannula Oxygen Flow Rate 2 2 2 Fraction of Inspired Oxygen (FIO2) Weight Telemetry Type Telemetry Monitoring Irregular Telemetry Rate (Approximate) Telemetry SPO2 EKG QRS Interval Telemetry Strip Reading 07/21/23 01:00 07/21/23 02:34 07/21/23 05:09 Temperature Temperature Source Pulse Rate 111 H Respiratory Rate 16 Blood Pressure Blood Pressure Mean Blood Pressure Location Blood Pressure Position O2 Sat by Pulse Oximetry 92 L 92 L Oxygen Delivery Method Nasal Cannula Nasal Cannula Oxygen Flow Rate 2 2 Fraction of Inspired Oxygen (FIO2) Weight Telemetry Type Remote Telemetry Telemetry Monitoring Continues Irregular Telemetry Rate (Approximate) 90-100 BPM Telemetry SPO2 92 L EKG QRS Interval 0.15 H Telemetry Strip Reading afib w/ bbb 07/21/23 05:11 07/21/23 05:11 07/21/23 07:00 Temperature 98 F Temperature Source Oral Pulse Rate 109 H Respiratory Rate 23 H Blood Pressure 106/70 Blood Pressure Mean 82 Blood Pressure Location Left Arm Blood Pressure Position Supine O2 Sat by Pulse Oximetry 93 L Oxygen Delivery Method Nasal Cannula Oxygen Flow Rate 2 Fraction of Inspired Oxygen (FIO2) Weight 171 lb 11.2 oz Telemetry Type Remote Telemetry Telemetry Monitoring Continues Irregular Telemetry Rate (Approximate) 100-110 BPM Telemetry SPO2 91 L EKG QRS Interval 0.16 H Telemetry Strip Reading AFIB WITH RVR AND BBB Lab Results Lab Results: Lab Results: Last 24 Hours 07/20/23 07/19/23 06:18 22:50 WBC 11.71 H RBC 3.07 L Hgb 9.1 L Hct 30.3 L MCV 98.7 MCH 29.6 MCHC 30.0 L RDW Coeff of Martha 22.8 H Plt Count 479 H Immature Gran % (Auto) 0.4 Neut % (Auto) 88.6 H Lymph % (Auto) 2.5 L [place] % (Auto) 8.4 Eos % (Auto) 0.0 Baso % (Auto) 0.1 Neut # (Auto) 10.4 H Lymph # (Auto) 0.3 L [place] # (Auto) 1.0 Eos # (Auto) 0.0 Baso # (Auto) 0.0 Immature Gran # (Auto) 0.1 Hypochromasia 2+ Anisocytosis 1+ Sodium 136.7 135.5 Potassium 4.56 5.32 H Chloride 107.9 H 107.3 H Carbon Dioxide 15.8 L 16.0 L Anion Gap 17.56 17.52 BUN 95.1 H* 90.6 H* Creatinine 3.18 H 2.96 H Estimated GFR (MDRD) 14.00 15.00 BUN/Creatinine Ratio 29.90 30.60 Glucose 88.4 106.8 H Calcium 5.63 L* 5.64 L* Total Bilirubin 0.43 AST 38.8 H ALT 50.7 H Alkaline Phosphatase 87.3 Total Protein 6.38 Albumin 3.28 L Globulin 3.10 Albumin/Globulin Ratio 1.05 Additional Comments Additional Comments: I have independently reviewed and interpreted the labs/EKGs/imaging ordered during this hospital stay. I have reviewed outside records that are available in our EMR that pertain to medical stay including imaging/notes/labs from previous visits. Active Medications Active Medications: Medications Generic Name Dose Route Start Last Admin Trade Name Freq PRN Reason Stop Dose Admin Acetaminophen 325 mg 07/15/23 16:01 Acetaminophen 325 Mg Tablet PO ONCE PRN MILD PAIN Fentanyl Citrate 25 mcg 07/20/23 20:32 07/21/23 05:47 Fentanyl 50 Mcg/Ml Sdv IVP 25 mcg Q4HR PRN Administration Air hunger Furosemide 40 mg 07/19/23 19:00 07/20/23 13:59 Furosemide Inj 40 Mg/4 Ml Vial IVP 40 mg Q8HR CATHERINE Administration Lorazepam 1 mg 07/20/23 20:31 Lorazepam Inj 2 Mg/Ml Vial IVP Q2HR PRN Agitation Ondansetron HCl 4 mg 07/16/23 15:32 Ondansetron Hcl/Pf 4 Mg/2 Ml Sdv IVP Q4H PRN Nausea / Vomiting Sodium Chloride 1 syr 07/18/23 19:12 0.9% Sodium Chloride 10 Ml Disp.Syrin IVF PRN PRN FLUSHING Sodium Chloride 1 syr 07/19/23 21:00 07/21/23 05:28 0.9% Sodium Chloride 10 Ml Disp.Syrin IVF 1 syr Q8HR CATHERINE Administration Plan Plan: 1. Acute hypoxic respiratory failure with respiratory acidosis in setting of pulmonary hypertension and diastolic heart failure 2. Diastolic heart failure exacerbation 3. CAROL, stage 2 4. Hypocalcemia 5. Transaminitis 6. Chronic anemia 7. A fib 8. Hypothyroidism 9. Venous stasis dermatitis 10. Hyperlipidemia 11. GERD Patient and family decided to withdraw treatment and transition to comfort measures only. Fentanyl and ativan ordered prn. Hospice consult placed. Family at bedside. Dr. Brandon Szymanski aware. Review Statement Review Statement: I have personally discussed and reviewed the patient's visit/currently labs/imaging/decision making with Dr. Szymanski, my supervising attending. Greater that 50 minutes spent with patient, 50% of the time spent with this patient was devoted to counseling and coordination of care.
[2023-07-21] MEDS: ATIVAN IVP PRN (09:09)
--- NOTE | 2023-07-21 20:13 | PCM.PROG ---
Dr. Brandon Szymanski/Tatiana Coronado SEISMOGRAPH CHIEF will assume care of patient at 0800 07/22/23.
[2023-07-22] MEDS: SUBLIMAZE IVP PRN (00:50)
[2023-07-22] MEDS: ATIVAN IVP PRN ×2 (01:01→05:30)
[2023-07-22 02:14] VITALS: BP 102/54; PULSE 108; RESP 18
== END 2023-07-22 13:40 | disposition expired | DRG 189 ==
LOC: ED 10:08 → MEDSURG B 14:06
PROVIDERS: ADMIT Hospitalist; ATTEND Internal Medicine
DX: R79.89 Other specified abnormal findings of blood chemistry; Z89.432 Acquired absence of left foot; Z20.822 Contact with and (suspected) exposure to COVID-19; J18.9 Pneumonia, unspecified organism; I27.23 Pulmonary hypertension due to lung diseases and hypoxia; E03.9 Hypothyroidism, unspecified; R06.02 Shortness of breath; J96.91 Respiratory failure, unspecified with hypoxia; E78.5 Hyperlipidemia, unspecified; M17.9 Osteoarthritis of knee, unspecified; J98.4 Other disorders of lung; J44.9 Chronic obstructive pulmonary disease, unspecified; M16.9 Osteoarthritis of hip, unspecified; I13.0 Hypertensive heart and chronic kidney disease with heart failure and stage 1 through stage 4 chronic kidney disease, or unspecified chronic kidney disease; M34.1 CR(E)ST syndrome; D64.9 Anemia, unspecified; N17.9 Acute kidney failure, unspecified; R60.0 Localized edema; M88.9 Osteitis deformans of unspecified bone

== ENCOUNTER 2023-07-22 13:44 | Inpatient (IN) ==
[2023-07-22] MEDS ORDERED: SUBLIMAZE IVP PRN (14:10)
[2023-07-22] MEDS ORDERED: ZOFRAN 4 MG/2 ML IVP PRN (14:10)
[2023-07-22] MEDS ORDERED: ATIVAN IVP PRN (14:16)
[2023-07-22] MEDS ORDERED: ATROPINE SULFATE EACHEYE PRN (14:16)
[2023-07-22] MEDS ORDERED: TYLENOL RC PRN (14:16)
[2023-07-22] MEDS ORDERED: TRANSDERM-SCOP 1.5 MG PATCH TD SCH (14:25)
[2023-07-22] MEDS ORDERED: ISOPTO ATROPINE SL PRN (14:59)
[2023-07-22 15:27] VITALS: BMI 34.5
[2023-07-22 18:05] VITALS: RESP 24
[2023-07-22] MEDS ORDERED: MORPHINE 2 MG/ML SYRINGE IVP PRN (22:53)
[2023-07-23 05:18] VITALS: BP 100/70; PULSE 60; TEMP 97.6
--- NOTE | 2023-07-23 08:26 | PCM.PROG ---
Attending Provider: ATTENDING PROVIDER: Dr. KASSIE MYERS MD This patient is seen with Tatiana Coronado, Nurse Practitioner. DATE OF SERVICE: 07/23/23 SUBJECTIVE: This 82 year old /WHITE F was hospitalized 07/22/23. Resting comfortably. Received Morphine last night for increase in respirations and uncomfortable behavior. She has since rested comfortably. Family is present. She is no responding REVIEW OF SYSTEMS: CONSTITUTIONAL: No night sweats. No fatigue, malaise, lethargy. No fever or chills. Nonresponsive. HEENT: Eyes: No visual changes. No eye pain. No eye discharge. ENT: No runny nose. No epistaxis. No sinus pain. No odynophagia. No congestion. RESPIRATORY: No cough, no congestion. No hemoptysis. Shortness of breath. CARDIOVASCULAR: No angina symptoms. No CHF symptoms. No atypical chest pain for CAD. No palpitations. No orthopnea.. GASTROINTESTINAL: No abdominal pain. No nausea or vomiting. No diarrhea or constipation. No hematemesis. No hematochezia. GENITOURINARY: No urgency. No frequency. No dysuria. No hematuria. No obstructive symptoms. No discharge. No pain. No significant abnormal bleeding. Incontinence. MUSCULOSKELETAL: No musculoskeletal pain; no joint swelling. NEUROLOGICAL: Awake, alert, oriented to time, place and person. No headache. No neck pain. No syncope. No seizures. No dizziness. PSYCHIATRIC: Not anxious. No depression. No suicidal thoughts. No homicidal thoughts. SKIN: No rash. No lesions. No wounds. ENDOCRINE: No unexplained weight loss. No weight gain. HEMATOLOGIC/LYMPHATIC: No anemia. No purpura. No petechiae. No prolonged or excessive bleeding. No palpable lymph nodes. PHYSICAL EXAMINATION: GENERAL: The patient is unresponsive, lying in bed in no distress. VITAL SIGNS: Temperature 97.6 F, Pulse 60, Respiratory Rate 24, BP 100/70, Pulse Ox 98% HEENT: Head normocephalic, atraumatic. Eyes: Extraocular muscles are intact. Pupils are equal, round and reactive to light and accommodation. Ears: No lesions. Nose appeared normal. Throat: No exudate or erythema. NECK: Supple. No JVD, no carotid bruit. No lymphadenopathy or thyromegaly. LUNGS: Clear to auscultation. Percussion note normal. Chest symmetrical. HEART: S1, S2, no S3. No murmurs. No cyanosis or clubbing. No ascites. Pulses: Dorsalis pedis and posterior tibial pulses +1 to +2 both sides. ABDOMEN: Soft. Non-tender. Bowel sounds active. No CVA tenderness. No mass felt. EXTREMITIES: No edema. Full range of motion of all extremities, equal. NEUROLOGIC: No focal deficit. Cranial nerves II through XII are grossly intact. No headache. No double vision. SKIN: Not dry. Intact. Turgor-normal. LYMPHATIC: No palpable lymph nodes/no lymphedema. MUSCULOSKELETAL: Normal joints with no swelling. Muscle tone is normal. ASSESSMENT: Please see below. 1. Acute respiratory failure 2. Acute renal failure 3. Acute CHF 4. Pulmonary hypertension PLAN: 1. Will continue under Hospice Care 2. Family present. Plan and coordination of the patient's care discussed in the presence of [employer] Counselor and nurse. PROGNOSIS: POOR SCRIBED BY: Blair SHEPHERD scribed while in presence of service performed by Tatiana Coronado APRN on 07/23/23 ([id number])
== END 2023-07-23 13:48 | disposition other institution (70) | DRG 999 ==
LOC: MEDSURG B 13:44
PROVIDERS: ADMIT Internal Medicine; ATTEND Internal Medicine